=== PATIENT | male | born 1955 | race Caucasian/White ===

== ENCOUNTER → 2019-02-13 14:32 | Outpatient (CLI) | payer MEDICAID, SELFPAY ==
[2019-02-13 14:46] LABS: Basophils % 0.5 % (0.1-2.0); Eosinophils # 0.1 K/mm3 (0.0-0.4); Eosinophils % 1.9 % (0.1-12.0); Hematocrit 50.7 % (42.0-52.0); Lymphocytes # 1.2 K/mm3 (0.7-4.5); Lymphocytes % 16.4 % (10-50); Mean Corpuscular HGB Conc 31.5 g/dL (31.8-35.4); Mean Corpuscular Hemoglobin 29.7 pg (27.0-31.2); Mean Corpuscular Volume 94.2 fl (80-94); Mean Platelet Volume 10.2 fl (7.4-10.4); Monocytes # 0.4 K/mm3 (0.1-1.0); Monocytes % 5.8 % (1.7-9.3); Neutrophils # 5.3 K/mm3 (1.8-7.8); Neutrophils % 75.4 % (37.0-80.0); Platelet Count 174 K/mm3 (142-424); Red Blood Count 5.39 M/mm3 (4.60-6.20); Red Cell Distribution Width 13.3 % (11.5-17.5)
[2019-02-13 16:02] LABS: Alanine Aminotransferase 17 U/L (12-78); Albumin Level 3.7 gm/dL (3.4-5.0); Albumin/Globulin Ratio 1.2 (1.1-1.8); Alkaline Phosphatase 112 U/L (46-116); Anion Gap 14.7 mEq/L (5-15); Aspartate Amino Transferase 16 U/L (15-37); Bilirubin,Total 0.7 mg/dL (0.2-1.0); Blood Urea Nitrogen 15 mg/dL (7-18); Calcium 8.9 mg/dL (8.5-10.1); Carbon Dioxide 24 mmol/L (21.0-32.0); Chloride 106 mmol/L (98-107); Chol/HDL Ratio 4.1 (1-3.5); Cholesterol 157 mg/dL (140-200); Creatinine,Serum 1.34 mg/dL (0.70-1.30); Estimated Glomerular Filt Rate 54 ml/min (>60); GFR (African American) 65 ML/MIN (>60); Glucose 108 mg/dL (74-106); HDL Cholesterol 38 mg/dL (27-67); LDL Cholesterol 109 mg/dL (0-130); Potassium 3.7 mmoL/L (3.5-5.1); Sodium 141 mmol/L (136-145); T4 (Thyroxine) 6.6 ug/dl (4.7-13.3); Thyroid Stimulating Hormone 1.26 uIU/ml (0.358-3.740); Total Protein,Serum 6.7 gm/dL (6.4-8.2); Triglycerides 51 mg/dL (30-200); VLDL Cholesterol 10 mg/dL (0-40)
[2019-02-15 08:13] LABS: Vitamin D 25 Hydroxy 28.5 ng/mL (30.0-100.0)
== END ==
PROVIDERS: Visit Provider Physician Assistant
DX: I10 Essential (primary) hypertension (principal); E55.9 Vitamin D deficiency, unspecified
CPT/HCPCS: 80053; 80061; 82652; 84436; 84443; 85025

== ENCOUNTER → 2019-10-30 11:11 | Outpatient (CLI) | payer MEDICAID, SELFPAY ==
--- NOTE | 2019-10-30 11:31 | ECG_ITS ---
APPROVED REPORT Exam: Resting ECG HR:60 bpm ECG Measurements Heart Rate 60 AXES OH 230 P 49 QRSd 112 QRS 59 QT 484 T -41 QTc 484 <Conclusion> Sinus rhythm with 1st degree AV block Inferior infarct, age undetermined ST & T wave abnormality, consider lateral ischemia Abnormal ECG Electronically signed by : Mohit Mondragon, 11/04/2019 21:23:36
[2019-10-30 11:35] LABS: Basophils % 0.5 % (0.1-2.0); Eosinophils # 0.2 K/mm3 (0.0-0.4); Eosinophils % 2.7 % (0.1-12.0); Hematocrit 49.6 % (42.0-52.0); Hemoglobin 16.9 g/dL (14.1-18.0); Lymphocytes # 1.8 K/mm3 (0.7-4.5); Lymphocytes % 21.3 % (10-50); Mean Corpuscular HGB Conc 34.1 g/dL (31.8-35.4); Mean Corpuscular Hemoglobin 29.4 pg (27.0-31.2); Mean Corpuscular Volume 86.5 fl (80-94); Mean Platelet Volume 8.5 fl (7.4-10.4); Monocytes # 0.5 K/mm3 (0.1-1.0); Monocytes % 5.7 % (1.7-9.3); Neutrophils % 69.8 % (37.0-80.0); Platelet Count 191 K/mm3 (142-424); Red Blood Count 5.74 M/mm3 (4.60-6.20); Red Cell Distribution Width 13.4 % (11.5-17.5); White Blood Count 8.7 K/mm3 (4.8-10.8)
[2019-10-30 13:35] LABS: Coronavirus 19 IgG Antibody Negative (Negative); Coronavirus 19 IgM Antibody Negative (Negative)
== END ==
PROVIDERS: Visit Provider Otolaryngology
DX: L98.9 Disorder of the skin and subcutaneous tissue, unspecified (principal); D49.2 Neoplasm of unspecified behavior of bone, soft tissue, and skin; Z01.818 Encounter for other preprocedural examination
CPT/HCPCS: 36415; 85025; 86328; 93005

== ENCOUNTER 2019-11-01 08:30 | Day surgery (SDC) | payer MEDICAID, SELFPAY ==
[2019-11-01 09:00] VITALS: BP 200/117; PULSE 69; RESP 18; TEMP 36.6; O2SAT 97; BMI 29.6
--- NOTE | 2019-11-01 10:39 | P.PN_ITS ---
[facility] Anesthesia Checklist - Structural Data Admitted From: Home Planned Operative Procedure/s: excision neoplasm r face x 2 Consent for Planned Operative Procedure(s) Verified: Yes - Additional verifications Anesthesia Reactions: No Hx Blood Transfusions: No - Airway Assessment C-Spine Mobility Assessed: Yes TMJ Mobility Assessed: Yes Dentition: Poor Dentition - Neurological Assessment Level of Consciousness: Awake, Alert, Appropriate - Anesthesia Plan Anesthesia Risk discussed: Yes Anesthesia Plan: Verified ASA Class: III Anesthesia Type: MAC [facility] History I have reviewed the patient's past medical history: Yes Medical History: Reports:: Anxiety, Cancer, Chronic Obstructive Pulmonary Disease (COPD), Congenital Heart Disease, Coronary Artery Disease, Depression, Gastroesophageal Reflux Disease(GERD), Heart Murmur, Hyperlipidemia, Hypertension, Myocardial Infarction Denies:: Diabetes Mellitus Type 1, Diabetes Mellitus Type 2, Internal Pacemaker, MRSA, Seizures *Have you ever received a pneumonia vaccine?: No *Have you received a flu vaccine this season?: No Other Medical History: Reports: Arthritis Anesthesia experience/problems:: none Other Surgeries: Yes: Cardiac Catheterization, Cardiac Surgery, Colonoscopy, Coronary Stent, Skin Cancer Excision. No: Pacemaker Amputation: No Fractures: No - *Social History Last grade of school completed: GED Smoking Status: Current every day smoker Tobacco Type: cigarettes # Packs/Day (cigarettes): 1 Alcohol Intake: current Alcohol Intake Frequency:: a few times a month Substance Use Type: denies use *Occupational Status:: disabled *Travel in the last 8 weeks: None - Psychiatric History Pschychiatric History:: Reports:: Anxiety, Depression Family Hx:: Cancer, Heart Attack, Stroke
[2019-11-01 11:05] VITALS: BP 164/101; PULSE 56; RESP 18; TEMP 36.1; O2SAT 93
[2019-11-01 11:15] VITALS: BP 174/103; PULSE 63; RESP 18; O2SAT 95
[2019-11-01 11:25] VITALS: BP 165/101; PULSE 64; RESP 18; O2SAT 96
--- NOTE | 2019-11-01 12:57 | P.OP_ITS ---
Date of procedure: 11/01/19 Pre-op Diagnosis:: 1. Neoplasm lesion right baptist 4.5 cm 2. Lesion right allen 1.5 cm Post-op Diagnosis:: Same Procedure performed:: 1. Excision of neoplasm right baptist 4.5 cm with tissue rearrangement geometric plastic repair 2. Excision of neoplasm right chin 1.5 cm with simple repair Surgeon:: Johnathon Delarosa MD RESTAURANT MANAGER:: Francisco Holder Anesthesia: GETA Estimated blood loss (mL): 6 Operative findings:: Same Operative note:: With the patient under general anesthesia the right side of the face was prepped and draped. The perilesional areas were infiltrated with a total of 5 cc of 2% lidocaine containing epinephrine. The lesion on the right baptist measured 4.5 cm lesion was marked out and the marked out was incised and the lesion was excised completely. Anterior and posterior incisions were made and a tissue rearrangement Z-plasty repair was done with interrupted 4-0 nylon sutures a Dermabond dressing was applied and the lesion on the right chin was marked out it measured 1.5 cm it was excised and submitted bleeding was stopped with bipolar cautery blood loss for all the procedure was less than 10 cc a simple repair was done of the lesion on the right chin and a Dermabond dressing was applied. The patient tolerated the procedure well and was sent to recovery in good general condition. Condition: stable Disposition: PACU Complications:: None
== END 2019-11-01 11:31 | disposition home or self-care (01) ==
LOC: OR 08:32
PROVIDERS: PCP Physician Assistant; Visit Provider Otolaryngology
PROC: (CPT 14040; principal; 2019-11-01 09:00)
DX: C44.329 Squamous cell carcinoma of skin of other parts of face (principal); L82.1 Other seborrheic keratosis; F41.9 Anxiety disorder, unspecified; J44.9 Chronic obstructive pulmonary disease, unspecified; I25.10 Atherosclerotic heart disease of native coronary artery without angina pectoris; Q24.9 Congenital malformation of heart, unspecified; F32.9 Major depressive disorder, single episode, unspecified; K21.9 Gastro-esophageal reflux disease without esophagitis; E78.5 Hyperlipidemia, unspecified; I11.9 Hypertensive heart disease without heart failure; I25.2 Old myocardial infarction; M19.90 Unspecified osteoarthritis, unspecified site
CPT/HCPCS: 14040; 11442; 96374; 96375

== ENCOUNTER 2019-11-02 07:25 | Day surgery (SDC) | payer MEDICAID, SELFPAY ==
[2019-11-01 11:40] VITALS: BMI 29.6
[2019-11-02 07:55] VITALS: BP 199/94; PULSE 71; RESP 18; TEMP 37.3; O2SAT 94
[2019-11-02 09:49] VITALS: BP 178/98; PULSE 71; RESP 18; TEMP 36.6; O2SAT 92
--- NOTE | 2019-11-02 09:49 | HMH.OPNOTE ---
Date of procedure: 11/02/19 Pre-op Diagnosis:: Skin neoplasm of uncertain behavior (right upper back)?1.75 cm Post-op Diagnosis:: Same Procedure performed:: Excision of right upper back skin lesion Surgeon:: Arnol Manuel MD Anesthesia: local Estimated blood loss (mL): 10 Operative findings:: Skin lesion excised in toto. 5 mm margin obtained secondary to patient's history of basal cell carcinoma and his desire to potentially avoid an additional operation. Operative note:: After informed consent was obtained the patient was taken to the procedure room. He is right upper back was prepped and draped in a sterile fashion. After infiltration local anesthetic an elliptical incision was made around the lesion. The deep subcutaneous tissue was dissected with electrocautery. The lesion was excised in toto after margins were marked for pathologic evaluation. The superior margin was marked with a short suture and the lateral margin was marked with a long suture. Electrocautery was utilized to achieve hemostasis. Skin was reapproximated with interrupted 3-0 nylon. Dressings were applied and the patient was transferred to recovery in stable condition. Condition: stable Disposition: no change Specimens:: Right upper back skin lesion Complications:: No immediate
[2019-11-02 10:00] VITALS: BP 170/98; PULSE 71; RESP 18; TEMP 36.6; O2SAT 92
--- NOTE | 2019-11-02 11:04 | SUR.OPER ---
4 SUTURES 5 LAPS 1 BOVIE TIP 1 HYPO 1 BLADE Counted x2 per Marina
--- NOTE | 2019-11-02 11:07 | SUR.OPER ---
FLUFFS & TEGADERM PLACED OVER INCISION FOR DRESSING Specimen:Skin Lesion Right upper back
== END 2019-11-02 10:00 | disposition home or self-care (01) ==
LOC: OUTP 07:27
PROVIDERS: PCP Physician Assistant; Visit Provider Surgery
PROC: (CPT 11402; principal; 2019-11-02 08:45)
DX: D04.5 Carcinoma in situ of skin of trunk (principal); Z85.828 Personal history of other malignant neoplasm of skin; Z79.82 Long term (current) use of aspirin; Z79.899 Other long term (current) drug therapy; J44.9 Chronic obstructive pulmonary disease, unspecified; F41.9 Anxiety disorder, unspecified; I11.9 Hypertensive heart disease without heart failure; Q24.9 Congenital malformation of heart, unspecified; I25.10 Atherosclerotic heart disease of native coronary artery without angina pectoris; K21.9 Gastro-esophageal reflux disease without esophagitis; E78.5 Hyperlipidemia, unspecified; I25.2 Old myocardial infarction
CPT/HCPCS: 11402

== ENCOUNTER → 2022-08-25 18:51 | Outpatient (CLI) | payer MEDICARE, MEDICAID, SELFPAY ==
[2022-08-25 19:32] LABS: Basophils % 0.4 % (0.1-2.0); Eosinophils # 0.2 K/mm3 (0.0-0.4); Eosinophils % 2.5 % (0.1-12.0); Hematocrit 45.7 % (42.0-52.0); Hemoglobin 14.9 g/dL (14.1-18.0); Lymphocytes # 1.8 K/mm3 (0.7-4.5); Lymphocytes % 21.4 % (10-50); Mean Corpuscular HGB Conc 32.5 g/dL (31.8-35.4); Mean Corpuscular Hemoglobin 27.7 pg (27.0-31.2); Mean Corpuscular Volume 85.1 fl (80-94); Mean Platelet Volume 10.1 fl (7.4-10.4); Monocytes # 0.5 K/mm3 (0.1-1.0); Monocytes % 5.5 % (1.7-9.3); Neutrophils % 70.2 % (37.0-80.0); Platelet Count 197 K/mm3 (142-424); Red Blood Count 5.37 M/mm3 (4.60-6.20); Red Cell Distribution Width 14.1 % (11.5-17.5); White Blood Count 8.5 K/mm3 (4.8-10.8)
[2022-08-25 19:40] LABS: Alanine Aminotransferase 23 U/L (12-78); Albumin Level 4.2 g/dl (3.5-5.0); Albumin/Globulin Ratio 1.7 (1.1-1.8); Alkaline Phosphatase 147 U/L (38-126); Anion Gap 15.6 mEq/L (5-15); Aspartate Amino Transferase 30 U/L (17-59); Bilirubin,Total 0.6 mg/dl (0.2-1.3); Blood Urea Nitrogen 14 mg/dl (9-20); Calcium 9.2 mg/dl (8.4-10.2); Carbon Dioxide 26 mmol/L (22.0-30.0); Chloride 103 mmol/L (98-107); Chol/HDL Ratio 3.4 (1-3.5); Cholesterol 117 mg/dl (140-200); Estimated Glomerular Filt Rate 61 ml/min (>60); GFR (African American) 74 ML/MIN (>60); Globulin 2.5 g/dL (1.3-3.2); Glucose 130 mg/dl (74-100); HDL Cholesterol 34 mg/dl (40-60); Potassium 4.6 mmoL/L (3.5-5.1); Sodium 140 mmol/L (136-145); Total Protein,Serum 6.7 g/dl (6.3-8.2); Triglycerides 152 mg/dl (30-150); VLDL Cholesterol 30 mg/dL (0-40)
[2022-08-25 19:51] LABS: Direct LDL Cholesterol 70.85 mg/dL (100-129)
[2022-08-25 19:58] LABS: 25-OH Vitamin D, Total 53.3 ng/mL (30-100)
[2022-08-25 20:13] LABS: Prostate Specific Ag Screen 1.1 ng/ml (0.0-4.0); Thyroid Stimulating Hormone 1.04 uIU/mL (0.465-4.68)
[2022-08-26 11:06] LABS: Intact Parathyroid Hormone 58.5 pg/mL (7.5-53.5)
[2022-08-26 11:09] LABS: Hemoglobin A1C 6.2 % (4.0-6.0)
== END ==
PROVIDERS: PCP Physician Assistant; Visit Provider Physician Assistant
DX: E11.9 Type 2 diabetes mellitus without complications (principal); Z12.5 Encounter for screening for malignant neoplasm of prostate; E55.9 Vitamin D deficiency, unspecified
CPT/HCPCS: 80053; 80061; 82306; 83036; 83970; 84443; 85025; G0103

== ENCOUNTER 2022-10-04 14:55 | Inpatient (IN) | payer MEDICARE, MEDICAID, SELFPAY ==
[2022-10-04] VITALS (7 sets, daily range): BP systolic 147–222; BP diastolic 67–113; PULSE 70–80; RESP 20–22; TEMP 36.1–36.8; O2SAT 93–95; BMI 30.5
--- NOTE | 2022-10-04 15:01 | PC.NURSE ---
arrived to floor from ED admissions by ambulance
--- NOTE | 2022-10-04 15:20 | EXP.HP ---
History of Present Illness *Admission Date: 10/04/22 *Reason for visit:: Prolonged QT, transfer from [facility] *History of present illness: Mr. Anderson is a 67-year-old gentleman with history of CAD, COPD, hyper tension, vasculopathy, with history of TIAs. Admitted to [facility] on 09/30 with pneumonia and respiratory failure. Ended up intubated and on a ventilator. Was extubated yesterday. Currently on 2 L oxygen. Reported to have improving DENY. Request was made for transfer due to abnormalities on EKG concerning for anterolateral ischemia. Troponin 6 on their high-sensitivity troponin. Patient has no chest pain at this time. He also has a prolonged QT on EKG. Cardiology was contacted for transfer and further work-up. Patient excepted for further management. On arrival, he is stable on 2 L nasal cannula oxygen. States he is feeling well. Noted to have severely elevated blood pressure with systolics in the 180s. After much discussion, states that his neurologist told him to keep his blood pressure systolic above 160 due to cerebral artery stenosis per his report. He appears to be describing vertebral artery stenosis. He is currently on carvedilol, losartan, Imdur and still has hypertensive urgency. Reports history of a left heart cath in 2017 with stenting of his LAD. No other heart attacks per his report. Additional report of echo performed at [place] showing grade 1 diastolic dysfunction and LVH with normal EF(?) Currently on Zosyn for pneumonia. Sees neurology at [facility] Disclaimer: The information contained in this section may have been updated after the patient was seen, as this information can be updated by other users. Medical History Anxiety CAD (coronary artery disease) Hypertension Neuropathy Skin lesion of left arm TIA (transient ischemic attack) Vertebral artery stenosis with cerebral infarction within last 8 weeks Family History Family history of cancer Family history of myocardial infarction Social History Smoking Status: Current every day smoker tobacco type: cigarettes packs per day: 1 alcohol intake: current substance use type: marijuana current occupational status: unemployed Travel in the last 8 weeks: None caffeine: Yes Meds Home Medications and Allergies Home Medications Medication Instructions Recorded Confirmed Type albuterol sulfate 90 mcg/actuation 2 puff inhalation Q6H Asthma 10/04/22 10/04/22 History aerosol inhaler (Ventolin HFA) apixaban 5 mg tablet (Eliquis) 5 mg PO BID Blood Thinner 10/04/22 10/04/22 History atorvastatin 80 mg tablet 80 mg PO DAILY Cholesterol 10/04/22 10/04/22 History carvedilol 12.5 mg tablet 12.5 mg PO BID High Blood Pressure 10/04/22 10/04/22 History clopidogrel 75 mg tablet 75 mg PO DAILY Blood Thinner 10/04/22 10/04/22 History ergocalciferol (vitamin D2) 1,250 50,000 unit PO WEEKLY Supplement 10/04/22 10/04/22 History mcg (50,000 unit) capsule losartan 50 mg tablet 50 mg PO DAILY High Blood Pressure 10/04/22 10/04/22 History nitroglycerin 0.4 mg sublingual 0.4 mg sublingual Q5MINP PRN Chest 10/04/22 10/04/22 History tablet Pain omeprazole 20 mg capsule,delayed 20 mg PO DAILY Acid Reflux 10/04/22 10/04/22 History release New Prescriptions to Start Prescriptions: Allergies Allergy/AdvReac Type Severity Reaction Status Date / Time No Known Allergies Allergy Verified 08/25/22 13:16 Exam Data for Last 24 hours Vital signs and Labs for Last 24 Hours: Temp Pulse Resp BP Pulse Ox 98.3 F 74 22 189/113 H 95 10/04/22 15:11 10/04/22 15:11 10/04/22 15:11 10/04/22 15:11 10/04/22 15:11 I & O for Last 24 hours: Intake & Output 10/01/22 10/02/22 10/03/22 10/04/22 23:59 23:59 23:59 23:59 Weight 110.847 kg
[2022-10-04 15:21] LABS: Coronavirus 19, PCR Not Detected (NotDetected); Influenza A, PCR Not Detected (NotDetected); Influenza B, PCR Not Detected (NotDetected)
--- NOTE | 2022-10-04 15:59 | ECG_ITS ---
APPROVED REPORT Exam: Resting ECG HR:72 bpm ECG Measurements Heart Rate 72 AXES NE 197 P 58 QRSd 125 QRS 56 QT 462 T 150 QTc 486 Conclusion SINUS RHYTHM MODERATE T-WAVE ABNORMALITY, CONSIDER ANTEROLATERAL ISCHEMIA [-0.1+ mV T-WAVE IN V3-V6] ABNORMAL ECG UNCONFIRMED REPORT Electronically signed by : Mohit Mondragon MD 10/04/2022 19:31:07
--- NOTE | 2022-10-04 15:59 | HMH.PHAINT1 ---
Pharmacy Intervention Comments: MEDICATION RECONCILIATION COMPLETE USING LIST FROM MD OFFICE VISIT (08/2022) AND EXTERNAL PHARMACY FILL HISTORY.
[2022-10-04 16:27] LABS: POC Glucose,Bedside 195 (70-110)
[2022-10-04 16:32] LABS: Basophils % 0.1 % (0.1-2.0); Eosinophils % 0.3 % (0.1-12.0); Hematocrit 37.3 % (42.0-52.0); Hemoglobin 11.6 g/dL (14.1-18.0); Lymphocytes # 0.5 K/mm3 (0.7-4.5); Lymphocytes % 6.6 % (10-50); Mean Corpuscular HGB Conc 31.1 g/dL (31.8-35.4); Mean Corpuscular Hemoglobin 25.9 pg (27.0-31.2); Mean Corpuscular Volume 83.4 fl (80-94); Mean Platelet Volume 9.7 fl (7.4-10.4); Monocytes # 0.3 K/mm3 (0.1-1.0); Monocytes % 3.4 % (1.7-9.3); Neutrophils # 7.3 K/mm3 (1.8-7.8); Neutrophils % 89.7 % (37.0-80.0); Platelet Count 160 K/mm3 (142-424); Red Blood Count 4.47 M/mm3 (4.60-6.20); Red Cell Distribution Width 14.2 % (11.5-17.5); White Blood Count 8.2 K/mm3 (4.8-10.8)
[2022-10-04 16:33] LABS: MANUAL DIFFERENTIAL MANUAL DIFFERENTIAL (MANUAL DIFF)
[2022-10-04 16:39] LABS: Alanine Aminotransferase 29 U/L (12-78); Albumin Level 3.2 g/dl (3.5-5.0); Albumin/Globulin Ratio 1.1 (1.1-1.8); Alkaline Phosphatase 86 U/L (38-126); Anion Gap 13.1 mEq/L (5-15); Aspartate Amino Transferase 46 U/L (17-59); Bilirubin,Total 0.6 mg/dl (0.2-1.3); Blood Urea Nitrogen 50 mg/dl (9-20); Calcium 8.6 mg/dl (8.4-10.2); Carbon Dioxide 25 mmol/L (22.0-30.0); Chloride 110 mmol/L (98-107); Creatinine Clearance Estimated 48 mL/min (50-200); Estimated Glomerular Filt Rate 27 ml/min (>60); GFR (African American) 33 ML/MIN (>60); Globulin 2.8 g/dL (1.3-3.2); Glucose 204 mg/dl (74-100); Hemoglobin A1C 6.5 % (4.0-6.0); Magnesium 2.4 mg/dl (1.6-2.3); Potassium 4.1 mmoL/L (3.5-5.1); Sodium 144 mmol/L (136-145)
--- NOTE | 2022-10-04 16:43 | HMH.PTEV ---
Physical Therapy Evaluation Rehab PT IP Evaluation Start: 10/04/22 15:18 Freq: ONCE Status: Active Protocol: Document 10/04/22 16:35 RICKY (Rec: 10/04/22 16:42 [id number]) Subjective/History History History Pt is a 67 y/o male who reports he qwas admitted to [facility] for heart problems and pneumonia. Pt reports he was intubated for 3 days due to the pneumonia but is feeling better now. Pt is currently on 2L NC without SOA. Pt reports the doctor mentioned having a heart cath. Pt reports history of stroke affecting the L side and a heart attack. Subjective Subjective Pt reports he lives in a single-story home with his with 3 steps with HR to enter. Pt reports prior to hospitalization, he was independent with all ambulation and ADLs and is pretty active. Pt reports he has a cane and a walker at home but does not use them. Pt denies using oxygen at home. Pt denies pain or SOA. Rehab PT IP Eval Objective Appearance Patient Behavior Appropriate,Cooperative Patient Orientation Person,Place,Name,Birthday, Situation Difficulty following instructions none Speech Pattern Clear,Appropriate Ambulation Patient Able to Ambulate Yes Ambulation Observation IP General Gait Pattern Observation Wide Based Gait Ambulation Distance (feet) 20 Ambulation Assistive Device None Ambulation Ability Supervision/Stand by Balance Ability to Arise Able, uses arms to help Sitting Balance Steady, safe Standing Balance Steady, wide stance Dynamic Sitting Balance Ability Good Dynamic Standing Balance Ability Good Transfers Bed Transfer Ability Supervision/Stand by Sit to Stand Bed Transfer Ability Supervision/Stand by MMT All Extremities PT MMT WNL Rehab PT IP prob,goals,plan Problems Date of Evaluation: 10/04/22 Rehab Potential Rehab Potential Innapropriate for Skilled Therapy Discharge Plan PT Discharge Plan Pt seems to be at current baseline sta
[2022-10-04 16:47] LABS: NT Pro Brain Natriuretic Pep. 4320 pg/mL (0-125)
--- NOTE | 2022-10-04 16:49 | HMH.OTEV ---
OT Inpatient Evaluation Rehab OT IP Evaluation Start: 10/04/22 15:18 Freq: ONCE Status: Active Protocol: Document 10/04/22 16:37 SOULEYMANEJUSTYN (Rec: 10/04/22 16:49 [id number]) Rehab OT IP Assessment Subjective History 67 year old male admitted to [facility] with PMH: Anxiety CAD (coronary artery disease) Hypertension Neuropathy Skin lesion of left arm TIA (transient ischemic attack ) Vertebral artery stenosis with cerebral infarction within last 8 weeks. Patient lives with in 1 story home with 1-2 ANITA. No steps inside of house. Independent with ADLs and fx'l mobility prior to hospitalization. No usage of AE/devices to ambulate/ maneuver. Subjective I can get up. Analysis Patient's functional mobility and transfers I. Patient demonstrated good dynamic balance while sitting and standing with no LOB noted . Patient able to d/d LB drsg of socks independently. Objective Patient Orientation Person,Name,Age,Year Bed Mobility bed mobility - supine/sit Assist Level Independent Transfer Training Sit/Stand Transfer,Sit/Stand/ Step Transfer,Sit/Stand/Pivot Transfer Assist Level Independent Chair Transfer Ability Independent Chair Transfer Technique Sit to/from Ambulatory Chair Transfer Assistive Devices None Lower Body Dressing Ability Independent Rehab OT IP prob,goals,plan Problems Date of Evaluation: 10/04/22 Rehab Potential Rehab Potential Innapropriate for Skilled Therapy Discharge Plan OT Discharge Plan Patient appears to be at baseline. Patient to return home with after medical d /c. Eval Complexity Eval Charge Codes 78836 - Low Complexity G Codes G -code Required No
[2022-10-04 16:51] LABS: Troponin I 0.02 ng/ml (0.00-0.034)
[2022-10-04 16:59] LABS: Hypochromasia 2+; Lymphocytes % 11 % (10-50); Monocytes % 1 % (2-9); Neutrophils % 88 % (42-76); Platelet Estimate Normal; Total Cells Counted 100
[2022-10-04 17:32] LABS: Thyroid Stimulating Hormone 1.21 uIU/mL (0.465-4.68)
[2022-10-04 19:42] LABS: Troponin I 0.02 ng/ml (0.00-0.034)
--- NOTE | 2022-10-04 20:33 | PC.NURSE ---
Per Kulwant corcoran to give Eliquis 5mg tonight
[2022-10-04 23:35] LABS: POC Glucose,Bedside 281 (70-110)
[2022-10-05] VITALS (10 sets, daily range): BP systolic 128–181; BP diastolic 67–89; PULSE 60–90; RESP 16–18; TEMP 36.4–36.6; O2SAT 95–97; BMI 29.8
--- NOTE | 2022-10-05 05:22 | PC.NURSE ---
Patient has rested though the night. Patient still on 2L NC. Has not complained of being SOB. No issues noted by patient
[2022-10-05 06:45] LABS: POC Glucose,Bedside 221 (70-110)
--- NOTE | 2022-10-05 07:29 | ECG_ITS ---
APPROVED REPORT Exam: Resting ECG HR:65 bpm ECG Measurements Heart Rate 65 AXES FL 200 P 46 QRSd 130 QRS 40 QT 470 T 168 QTc 481 Conclusion SINUS RHYTHM INFERIOR MYOCARDIAL INFARCTION , PROBABLY OLD [40+ ms Q WAVE AND/OR ST/T ABNORMALITY IN II/aVF] MODERATE T-WAVE ABNORMALITY, CONSIDER ANTEROLATERAL ISCHEMIA [-0.1+ mV T-WAVE IN V3-V6] ABNORMAL ECG UNCONFIRMED REPORT Electronically signed by : Mohit Mondragon MD 10/05/2022 20:27:34
[2022-10-05 08:03] LABS: Basophils % 0.1 % (0.1-2.0); Eosinophils # 0.1 K/mm3 (0.0-0.4); Eosinophils % 0.9 % (0.1-12.0); Hematocrit 35.7 % (42.0-52.0); Hemoglobin 11.1 g/dL (14.1-18.0); Lymphocytes # 1.2 K/mm3 (0.7-4.5); Lymphocytes % 15.3 % (10-50); Mean Corpuscular HGB Conc 31.1 g/dL (31.8-35.4); Mean Corpuscular Hemoglobin 25.8 pg (27.0-31.2); Mean Corpuscular Volume 83.1 fl (80-94); Mean Platelet Volume 9.5 fl (7.4-10.4); Monocytes # 0.7 K/mm3 (0.1-1.0); Monocytes % 9.2 % (1.7-9.3); Neutrophils # 5.6 K/mm3 (1.8-7.8); Neutrophils % 74.5 % (37.0-80.0); Platelet Count 171 K/mm3 (142-424); White Blood Count 7.5 K/mm3 (4.8-10.8)
[2022-10-05 08:04] LABS: Chloride 110 mmol/L (98-107); Potassium 3.4 mmoL/L (3.5-5.1); Sodium 144 mmol/L (136-145)
[2022-10-05 08:07] LABS: Alanine Aminotransferase 31 U/L (12-78); Albumin Level 3.1 g/dl (3.5-5.0); Albumin/Globulin Ratio 1.1 (1.1-1.8); Alkaline Phosphatase 68 U/L (38-126); Anion Gap 10.4 mEq/L (5-15); Aspartate Amino Transferase 40 U/L (17-59); Bilirubin,Total 0.2 mg/dl (0.2-1.3); Blood Urea Nitrogen 42 mg/dl (9-20); Calcium 8.7 mg/dl (8.4-10.2); Carbon Dioxide 27 mmol/L (22.0-30.0); Cholesterol 115 mg/dl (140-200); Creatinine Clearance Estimated 52 mL/min (50-200); Estimated Glomerular Filt Rate 30 ml/min (>60); GFR (African American) 37 ML/MIN (>60); Globulin 2.7 g/dL (1.3-3.2); Glucose 161 mg/dl (74-100); Total Protein,Serum 5.8 g/dl (6.3-8.2); Triglycerides 125 mg/dl (30-150); VLDL Cholesterol 25 mg/dL (0-40)
[2022-10-05 08:08] LABS: Chol/HDL Ratio 4.6 (1-3.5); HDL Cholesterol 25 mg/dl (40-60); Magnesium 2.3 mg/dl (1.6-2.3)
[2022-10-05 08:18] LABS: Direct LDL Cholesterol 62.83 mg/dL (100-129)
--- NOTE | 2022-10-05 09:48 | ECG_ITS ---
APPROVED REPORT Exam: Resting ECG HR:63 bpm ECG Measurements Heart Rate 63 AXES NJ 206 P 47 QRSd 124 QRS 38 QT 488 T 177 QTc 495 Conclusion SINUS RHYTHM INFERIOR MYOCARDIAL INFARCTION , PROBABLY OLD [40+ ms Q WAVE AND/OR ST/T ABNORMALITY IN II/aVF] MARKED T-WAVE ABNORMALITY, CONSIDER ANTEROLATERAL ISCHEMIA [-0.5+ mV T-WAVE IN I/aVL/V3-V6] ABNORMAL ECG UNCONFIRMED REPORT Electronically signed by : Mohit Mondragon MD 10/05/2022 20:27:26
--- NOTE | 2022-10-05 11:15 | EXP.ACUTE.PN ---
Subjective *Date: 10/05/22 *Time: 11:15 Interval history: Patient is chest pain-free this morning. Blood pressure with improved control after morning medications. Elevated to systolic 180 overnight. Denies any nausea or vomiting. Improved shortness of breath. Afebrile. Medical Exam Vital signs and Labs for Last 24 Hours: Vital Signs Temp Pulse Pulse Resp BP BP BP 10/05/22 09:43 128/67 10/05/22 08:00 18 10/05/22 07:16 97.5 F L 62 18 181/89 H 10/05/22 04:00 70 10/05/22 04:00 97.9 F 70 18 146/71 H 10/05/22 00:00 90 10/04/22 23:53 98.0 F 71 20 147/67 H 10/04/22 20:00 80 10/04/22 19:36 97 F L 74 20 189/84 H 10/04/22 16:00 70 10/04/22 15:06 80 10/04/22 17:32 188/86 H 222/97 H 186/85 H 10/04/22 15:11 98.3 F 74 22 189/113 H BP Pulse Ox 10/05/22 09:43 95 10/05/22 08:00 97 10/05/22 07:16 97 10/05/22 04:00 10/05/22 04:00 97 10/05/22 00:00 10/04/22 23:53 93 L 10/04/22 20:00 10/04/22 19:36 10/04/22 16:00 10/04/22 15:06 10/04/22 17:32 211/87 H 10/04/22 15:11 95 Intake and Output 10/04/22 10/05/22 10/05/22 23:59 07:59 15:59 Intake Total 360 / 360 0 / 0 Output Total 600 / 600 800 / 1550 750 / 1550 Balance -240 / -240 -800 / -1550 -750 / -1550 Intake: Intake, Oral Amount 360 / 360 0 / 0 Output: Output, Urine Amount 600 / 600 800 / 1550 750 / 1550 Other: Number of Voids 1 Number of Unmeasured Voids 0 1 1 Weight 108.862 kg Patient Weight 10/05/22 23:59 Weight 108.862 kg Laboratory Results - last 24 hr 10/04/22 15:15: SARS-CoV-2 (PCR) Not detected, Influenza A Untype (PCR) Not detected, Influenza Type B (PCR) Not detected 10/04/22 16:15: WBC 8.2, RBC 4.47 L, Hgb 11.6 L, Hct 37.3 L, MCV 83.4, MCH 25.9 L, MCHC 31.1 L, RDW 14.2, Plt Count 160, MPV 9.7, Neut % (Auto) 89.7 H, Lymph % (Auto) 6.6 L, Gibson % (Auto) 3.4, Eos % (Auto) 0.3, Baso % (Auto) 0.1, Neut # (Auto) 7.3, Lymph # (Auto) 0.5 L, Gibson # (Auto) 0.3, Eos # (Auto) 0.0, Baso # (Auto) 0.0, Total Counted 100, Neutrophils % (Manual) 88 H, Lymphocytes % (Manual) 11, Monocytes % (Manual) 1 L, Platelet Estimate Normal, Hypochromasia 2+, Sodium 144, Potassium 4.1, Chloride 110 H, Carbon Dioxide 25, Anion Gap 13.1, BUN 50 H, Creatinine 2.40 H, Estimated Creat Clear 48, Estimated GFR 27 L, Est GFR ( Amer) 33 L, Glucose 204 H, Hemoglobin A1c 6.5 H, Calcium 8.6, Magnesium 2.4 H, Total Bilirubin 0.6, AST 46, ALT 29, Alkaline Phosphatase 86, Troponin I 0.02, NT-Pro-B Natriuret Pep 4320 H, Total Protein 6.0 L, Albumin 3.2 L, Globulin 2.8, Albumin/Globulin Ratio 1.1, TSH 1.21 10/04/22 16:19: POC Glucose 195 H 10/04/22 19:15: Troponin I 0.02 10/04/22 20:06: POC Glucose 281 H 10/05/22 05:27: POC Glucose 221 H 10/05/22 07:04: WBC 7.5, RBC 4.30 L, Hgb 11.1 L, Hct 35.7 L, MCV 83.1, MCH 25.8 L, MCHC 31.1 L, RDW 14.0, Plt Count 171, MPV 9.5, Neut % (Auto) 74.5, Lymph % (Auto) 15.3, Gibson % (Auto) 9.2, Eos % (Auto) 0.9, Baso % (Auto) 0.1, Neut # (Auto) 5.6, Lymph # (Auto) 1.2, Gibson # (Auto) 0.7, Eos # (Auto) 0.1, Baso # (Auto) 0.0, Sodium 144, Potassium 3.4 L, Chloride 110 H, Carbon Dioxide 27, Anion Gap 10.4, BUN 42 H, Creatinine 2.20 H, Estimated Creat Clear 52, Estimated GFR 30 L, Est GFR ( Amer) 37 L, Glucose 161 H D, Calcium 8.7, Magnesium 2.3, Total Bilirubin 0.2, AST 40, ALT 31, Alkaline Phosphatase 68, Total Protein 5.8 L, Albumin 3.1 L, Globulin 2.7, Albumin/Globulin Ratio 1.1, Triglycerides 125, Cholesterol 115 L, LDL Cholesterol Direct 62.83 L, VLDL Cholesterol 25, HDL Cholesterol 25 L, Cholesterol/HDL Ratio 4.6 H I & O for Labs for Last 24 Hours: Intake & Output 10/02/22 10/03/22 10/04/22 10/05/22 23:59 23:59 23:59 23:59 Intake Total 360 / 360 0 / 0 Output Total 600 / 600 1550 / 1550 Balance -240 / -240 -1550 / -1550 Weight 110.847 kg 108.862 kg Constitutional: Present no acute distress, ave
[2022-10-05 11:17] LABS: POC Glucose,Bedside 207 (70-110)
[2022-10-05 16:40] LABS: POC Glucose,Bedside 162 (70-110)
--- NOTE | 2022-10-05 16:42 | PC.NURSE ---
pt alert and oriented. ls diminished t/o. pt was initially on 2LNC at beginning of shift and has been weaned to RA. pt has incentive spirometer at bedside and instructed to use. abdomen soft, nontender, bs active. pt had his significant other bring in lunch and pt ate well. pt has been requiring sliding scale insulin coverage. at this time pt's plan is for a heart cath tomorrow and pt is aware and in agreeance. pt did ambulate in the room and sat up in the chair for extended period of time. call light w/i reach. pt has asked that he be able to rest tonight and Dr. Grijalva stated to pass on in report for minimal disturbance along with cluster care this evening.
[2022-10-05 20:33] LABS: POC Glucose,Bedside 179 (70-110)
[2022-10-06] VITALS (30 sets, daily range): BP systolic 109–187; BP diastolic 66–119; PULSE 57–78; RESP 12–25; TEMP 36.5–36.9; O2SAT 91–99; BMI 29.8
--- NOTE | 2022-10-06 05:24 | PC.NURSE ---
Per Dr. Grijalva communication note, patient has been able to rest from 10pm-6am. Patient did take a shower, and no issues were stated by patient or family member at bedside.
[2022-10-06 06:23] LABS: Eosinophils # 0.3 K/mm3 (0.0-0.4); Mean Corpuscular Hemoglobin 26.2 pg (27.0-31.2); Monocytes # 0.6 K/mm3 (0.1-1.0); Neutrophils # 5.8 K/mm3 (1.8-7.8)
[2022-10-06 06:33] LABS: Anion Gap 12.7 mEq/L (5-15); Basophils % 0.4 % (0.1-2.0); Blood Urea Nitrogen 34 mg/dl (9-20); Calcium 8.8 mg/dl (8.4-10.2); Carbon Dioxide 26 mmol/L (22.0-30.0); Chloride 108 mmol/L (98-107); Creatinine Clearance Estimated 57 mL/min (50-200); Eosinophils % 4.1 % (0.1-12.0); Estimated Glomerular Filt Rate 34 ml/min (>60); GFR (African American) 41 ML/MIN (>60); Glucose 132 mg/dl (74-100); Hematocrit 41.2 % (42.0-52.0); Lymphocytes # 1.1 K/mm3 (0.7-4.5); Lymphocytes % 14.3 % (10-50); Magnesium 2.1 mg/dl (1.6-2.3); Mean Platelet Volume 9.1 fl (7.4-10.4); Neutrophils % 73.2 % (37.0-80.0); Platelet Count 203 K/mm3 (142-424); Potassium 3.7 mmoL/L (3.5-5.1); Red Blood Count 5.02 M/mm3 (4.60-6.20); Sodium 143 mmol/L (136-145); White Blood Count 7.9 K/mm3 (4.8-10.8)
[2022-10-06 06:34] LABS: Hemoglobin 13.2 g/dL (14.1-18.0)
[2022-10-06 06:43] LABS: POC Glucose,Bedside 128 (70-110)
--- NOTE | 2022-10-06 07:57 | IR_ITS ---
APPROVED REPORT Patient Location: Inpatient Underwriting Operations Manager: LETTY Lea RT (R) PROCEDURES Left heart catheterization Left ventriculogram Selective coronary angiogram Bilateral selective renal angiography INDICATION Acute coronary syndrome, Malignant hypertension, Chronic renal failure, Renovascular hypertension, Renal artery stenosis, Abnormal echocardiogram with regional wall motion abnormality Informed consent was obtained prior to the procedure. COMPLICATIONS None Estimated Blood Loss: Less than 10 mls TECHNIQUE One percent lidocaine used to anesthetize the right anterior aspect of the wrist. The right radial artery was accessed via the Seldinger technique. A 6 Togolese sheath was placed in the right radial artery. 150 mg magnesium sulfate, 800 mcg of nitroglycerin, 1mg Lidocaine and 5000 U Heparin were given through the arterial sheath. The papa catheter was also used to perform left heart catheterization, left ventriculogram and selective coronary angiogram. The 100 cm JR4 guide catheter was used to perform bilateral selective renal angiography. At the end of the procedure therapeutic heparin was administered and a Choice PT extra-support wire was placed in the right renal artery however Herculink stent could not be delivered therefore the apparatus was removed and the procedure was aborted. The sheath was removed from the radial artery good hemostasis was achieved using TR banding patient was transferred to the postop putting in stable condition ANGIOGRAPHIC RESULTS The left main artery Has a distal tubular 70% stenosis The left anterior descending artery Has proximal 10% luminal irregularities with a mid vessel eccentric 50% stenosis The circumflex artery Gives rise to a large ramus intermedius which has a stent in the proximal segment which has 30% in-stent restenosis. The circumflex artery itself has a proximal eccentric 30% stenosis followed by a proximal to mid vessel stent which has mild diffuse in-stent restenosis nothing greater than 30% The right coronary artery Is a codominant vessel and has a proximal 60 to 70% stenosis The CRUZ ventriculogram reveals Dilated ventricle with poor assessment of ejection fraction with LV gram The left ventricular end-diastolic pressure 20 mmHg Right renal artery is singular and has an ostial hazy 70 to 80% stenosis Left renal artery singular and has an ostial proximal 70% stenosis IMPRESSION Severe distal left main coronary artery disease as described above with severe stenosis in the proximal codominant right coronary Elevated LVEDP Severe bilateral renal artery stenosis 8 mm renal artery mass suggestive of renal cell carcinoma PLAN 1. IV fluids overnight 2. Continue night pride drip 3. Hold Eliquis 4. Patient will be brought back to the [employer] [facility] tomorrow on my undergo right femoral arterial access with plans to stent each renal artery 5. Once the bilateral renal arteries are stented patient will be referred to CT surgery [facility] on an outpatient basis. Patient will require bypass surgery 3 to 4 weeks after bilateral renal artery stents were placed 6. LDL less than 55 to be achieved with high intensity statin 7. The renal mass can be further evaluated following renal artery stenting and coronary bypass grafting Electronically signed by : Bola Rodriguez MD 10/06/2022 16:01:50
--- NOTE | 2022-10-06 09:02 | US_ITS ---
FINAL REPORT CLINICAL HISTORY: malignant htn COMPARISON: None FINDINGS: RENAL ULTRASOUND Ultrasound images of the kidneys were obtained. Limited images of the liver parenchyma demonstrates normal echogenicity. The right kidney measures 12.2 cm in length. The left kidney measures 14.1 cm in length. 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 There is a 2.1 cm left renal cyst. No evidence of hydronephrosis. IMPRESSION: 8 mm mass upper pole right kidney. If indicated, renal mass protocol CT or MRI may be helpful. 2.1 cm left renal cyst. Reviewed, Interpreted and Dictated by Cuong Farris III, MD Transcribed by Marcia Mathias Authenticated and [facility]
--- NOTE | 2022-10-06 09:24 | EXP.CARD.CON ---
History of Present Illness History of Present Illness Consult date: 10/06/22 Requesting physician: Jeffeyr Grijalva Chief complaint: abnormal EKG, aspiration History of present illness: This is a 67-year-old white gentleman who was transferred here to [facility] from [facility] due to an elevated high-sensitivity troponin and abnormal EKG changes. The patient was admitted to [facility] on 09/30/2022 with pneumonia and respiratory failure. The patient states that he was drinking when he aspirated and had a syncopal episode and was transported to the hospital at [facility]. The patient reports that he was told he had pneumonia. He did get intubated and extubated 24 hours later with a clear chest x-ray. Following this the patient had an elevated high-sensitivity troponin and EKG changes concerning for anterior lateral ischemia as well as a prolonged QTc interval. Cardiology was consulted and the patient was transferred here to [facility]. He denies having any chest pain or pressure. He did report having some shortness of breath with exertion a few days prior to him aspirating. He states the shortness of breath was new for him. He states after aspirating he has had shortnes sof breath, mainly with exertion. improvs with rest. He denies lower extremity edema. He denies any fever, chills, nausea, vomiting, diarrhea, PND orthopnea. The patient has a known history of coronary artery disease with 3 stents placed in 2017-2 different arteries. He also reports having vertebral artery stenosis with stenting that reoccluded. He is currently on Plavix and Eliquis for his vertebral artery stenosis. The patient has also had malignantly elevated blood pressure since being admitted to the hospital. Repeat echocardiogram here at [facility] does show some LV dysfunction and inferior lateral and inferior wall akinesis. [facility] Disclaimer: The information contained in this section may have been updated after the patient was seen, as this information can be updated by other users. Medical History (Updated 10/06/22 @ 09:45 by Felicia Osman APRN) Abnormal echocardiogram Abnormal electrocardiogram [ECG] [EKG] Anxiety Atypical angina CAD (coronary artery disease) Hyperlipidemia Hypertension LV dysfunction Malignant hypertension Neuropathy Skin lesion of left arm SOB (shortness of breath) on exertion TIA (transient ischemic attack) Tobacco use Vertebral artery stenosis with cerebral infarction within last 8 weeks Family History Family history of cancer Family history of myocardial infarction Social History Smoking Status: Current every day smoker tobacco type: cigarettes packs per day: 1 alcohol intake: current substance use type: marijuana current occupational status: unemployed Travel in the last 8 weeks: None caffeine: Yes Review of Systems Review of Systems Review of systems:: pertinent systems reviewed and negative unless documented below Constitutional Constitutional: Reports system reviewed and no additional complaints, except as documented Eyes Eyes: Reports system reviewed and no additional complaints, except as documented ENT Ears, Nose, Mouth, and Throat: Reports system reviewed and no additional complaints, except as documented and Reports dysphagia (aspirated liquid) *Cardiovascular Cardiovascular: Reports system reviewed and no additional complaints, except as documented, Denies chest pain and Denies dyspnea *Respiratory Respiratory: Reports system reviewed and no additional complaints, except as documented and Denies dyspnea *Gastrointestinal Gastrointestinal: Reports system reviewed and no additional complaints, except as documented and Reports dysphagia (aspirated liquid) *Genitourinary Genitourinary: Reports system reviewed and no additional complai
--- NOTE | 2022-10-06 10:13 | PC.NURSE ---
Report given to Lazaro Feldman RN and Lazaro Su RN
--- NOTE | 2022-10-06 10:24 | PC.NURSE ---
pt moved to 217 from 213, report taken from Marychuy Paredes RN; pt was to be started on nipride drip but upon arrival pt's systolic blood pressure 152, held drip at this time but have drip ready in room if need it; pt to go to laboratory apparatus glass blower at some point today, pt and family updated with poc, pt resting in bed, call light within reach
[2022-10-06 10:54] LABS: POC Glucose,Bedside 203 (70-110)
--- NOTE | 2022-10-06 11:02 | PC.NURSE ---
notified hot plate plywood press laborer for MD Rodriguez that pt's bp has sustained less than 160mmHg since pt has come to 217, drip has not been started but have at bedside in case need to start drip
--- NOTE | 2022-10-06 11:16 | CA_ITS ---
FINAL REPORT TECHNIQUE: Grayscale, color Doppler and duplex Doppler ultrasound of the kidneys, aorta and renal arteries was performed. Multiple velocities were measured. CLINICAL HISTORY: HTN, CKD III FINDINGS: Aorta velocity: 83 cm/sec Right kidney: 11.1 cm. No evidence of hydronephrosis or mass. Right intrarenal RI: .73 Right renal artery velocity: 148 cm/sec. Right RAR (Renal artery-Aortic Ratio): 1.8 Left Kidney: 13.1 cm. No evidence of hydronephrosis or mass. Left intrarenal RI: .69 Left renal artery velocity: 195 cm/sec. Left RAR (Renal Artery-Aortic Ratio): 2.3 IMPRESSION: There is no evidence of renal artery stenosis on the right. Less than 60% renal artery stenosis on the left. Recommend CTA or catheter angiogram to further evaluate. Reviewed, Interpreted and Dictated by Cuong Farris III, MD Transcribed by Analisa Bettencourt Authenticated and [facility]
--- NOTE | 2022-10-06 12:00 | PC.NURSE ---
1200-bp 172/94, started nipride drip per order at 0.1mcg/kg/min 1208-bp 164/92, nipride drip continued at 0.1mcg/kg/min
--- NOTE | 2022-10-06 12:32 | PC.NURSE ---
1200-bp 172/94, started nipride drip per order 1208-bp 164/92, nipride drip continued at 0.1mcg/hr
--- NOTE | 2022-10-06 12:55 | PC.NURSE ---
1230-bp 195/110, increased nipride drip to 0.3mcg/kg/min 1236-bp 193/90, increased nipride drip to 0.5mcg/kg/min 1252-bp 145/87, decreased nipride drip to 0.3mcg/kg/min
--- NOTE | 2022-10-06 13:10 | PC.NURSE ---
1304-bp 105/67, held nipride drip at this time 1308-bp 141/87
--- NOTE | 2022-10-06 14:05 | PC.NURSE ---
bp 177/92, restarted nipride drip at 0.1mcg/kg/min
--- NOTE | 2022-10-06 14:32 | PC.NURSE ---
Patient being taken down to dental laboratory supervisor at this time via wheelchair by dental laboratory supervisor staff.
--- NOTE | 2022-10-06 16:20 | PC.NURSE ---
pt back from foundry laborer coreroom, pt had incidence of urine incontinence, changed pt; pts bp 168/95, restarted nipride drip at 0.1mcg/kg/min, cath site is right radial, no bruising or drainage noted at this time, educated pt on importance of not using that extremity to lift or pull/push for a week, pt resting in bed, call light within reach
[2022-10-06 16:41] LABS: POC Glucose,Bedside 123 (70-110)
--- NOTE | 2022-10-06 18:14 | PC.NURSE ---
instructed by Attila with [facility] to wait until aPTT result comes back before giving bolus or starting drip, drawing aPTT now, will await results and have drip and bolus ready to start
--- NOTE | 2022-10-06 19:06 | PC.NURSE ---
bp 172/97, increasing nipride drip to 0.2mcg/kg/min
[2022-10-06 20:48] LABS: POC Glucose,Bedside 166 (70-110)
[2022-10-07] VITALS (15 sets, daily range): BP systolic 140–162; BP diastolic 61–109; PULSE 58–80; RESP 15–29; TEMP 36.7–37.2; O2SAT 93–97; BMI 28.8
[2022-10-07 06:22] LABS: POC Glucose,Bedside 136 (70-110)
--- NOTE | 2022-10-07 07:27 | EXP.ACUTE.PN ---
Subjective *Date: 10/06/22 *Time: 14:27 Interval history: Patient stable on room air. No complaint of chest pain. No nausea or vomiting. Overall feeling well. Taken for heart cath today. Medical Exam Vital signs and Labs for Last 24 Hours: Vital Signs Temp Pulse Pulse Resp BP BP Pulse Ox 10/07/22 06:00 58 L 29 H 150/75 H 96 10/07/22 04:00 60 10/07/22 04:00 98.1 F 10/07/22 00:00 60 10/07/22 04:00 60 151/91 H 94 L 10/07/22 04:00 60 10/07/22 02:00 58 L 24 143/78 H 95 10/06/22 20:00 60 10/07/22 00:00 98.0 F 10/06/22 22:05 67 15 109/66 L 91 L 10/06/22 21:05 64 18 138/91 H 96 10/07/22 00:00 24 146/72 H 95 10/07/22 00:00 61 10/06/22 23:05 59 L 18 119/68 95 10/06/22 20:05 68 17 166/94 H 95 10/06/22 22:00 67 15 109/66 L 91 L 10/06/22 20:00 95 10/06/22 20:00 68 10/06/22 19:05 66 24 172/97 H 97 10/06/22 18:05 70 25 H 154/77 H 95 10/06/22 17:35 72 19 169/98 H 95 10/06/22 17:05 59 L 19 162/90 H 94 L 10/06/22 16:50 57 L 14 155/89 H 92 L 10/06/22 18:35 67 24 144/79 H 95 10/06/22 16:35 59 L 13 167/106 H 99 10/06/22 18:00 71 25 H 154/77 H 97 10/06/22 16:20 64 12 168/95 H 97 10/06/22 16:05 68 18 168/83 H 97 10/06/22 16:00 69 18 165/86 H 97 10/06/22 15:55 68 18 170/119 H 98 10/06/22 15:56 66 78 18 144/91 H 97 10/06/22 14:00 66 20 177/92 H 97 10/06/22 12:00 60 10/06/22 11:19 98.4 F 10/06/22 10:00 63 20 152/87 H 94 L 10/06/22 11:42 98 10/06/22 10:53 64 22 156/92 H 95 10/06/22 08:00 60 10/06/22 07:38 97.7 F 61 20 187/77 H 96 Intake and Output 10/06/22 10/06/22 10/07/22 15:59 23:59 07:59 Intake Total 0 / 892.3 600 / 892.3 292.3 / 292.3 Output Total 0 / 400 0 / 400 350 / 350 Balance 0 / 492.3 600 / 492.3 -57.7 / -57.7 Intake: Intake, Oral Amount 0 / 840 600 / 840 240 / 240 Infusion Intake 52.3 / 52.3 Nitroprusside Sodium 50 mg In 52.3 / 52.3 Dextrose 5 % in Water 250 ml @ 0.3 MCG/KG/MIN 9.876 mls/hr IV .Q24H [facility] Rx#:[id number] Output: Output, Urine Amount 0 / 400 0 / 400 350 / 350 Other: Number of Voids 1 Number of Unmeasured Voids 1 1 0 Weight 108.86 kg 104.95 kg Patient Weight 10/07/22 23:59 Weight 104.95 kg Laboratory Results - last 24 hr 10/06/22 10:47: POC Glucose 203 H 10/06/22 16:32: POC Glucose 123 H 10/06/22 20:41: POC Glucose 166 H 10/07/22 06:14: POC Glucose 136 H I & O for Labs for Last 24 Hours: Intake & Output 10/04/22 10/05/22 10/06/22 10/07/22 23:59 23:59 23:59 23:59 Intake Total 360 / 360 1080 / 1080 600 / 892.3 292.3 / 292.3 Output Total 600 / 600 1800 / 1800 400 / 400 350 / 350 Balance -240 / -240 -720 / -720 200 / 492.3 -57.7 / -57.7 Weight 110.847 kg 108.862 kg 108.86 kg 104.95 kg Constitutional: Present no acute distress, average body habitus and cooperative Head: Present atraumatic and normocephalic ENT: Present normal exam Neck: Present normal inspection Respiratory: Present normal respiratory effort; Absent accessory muscle use, rhonchi, wheezes or crackles Cardiac: Present Reg Rate and Rhythm GI: Present soft and normal bowel sounds; Absent distention or tenderness Extremities: Present normal inspection and full ROM Skin: Present intact; Absent erythema Neuro: Present Grossly Intact, alert, awake, oriented x 3 and moves all extremities Assessment and Plan *Assessment and plan (1) Pneumonia: Status: Acute Qualifiers: Pneumonia type: due to unspecified organism Laterality: unspecified laterality Lung location: unspecified part of lung Qualified Code(s): J18.9 - Pneumonia, unspecified organism Category: Medical Code(s): J18.9 - Pneumonia, unspecified organism (2) HFrEF (heart failure with red
--- NOTE | 2022-10-07 07:31 | EXP.ACUTE.PN ---
Subjective *Date: 10/07/22 *Time: 11:09 Interval history: Patient feels well this morning. No chest pain or shortness of breath. Stable on room air. Required oxygen overnight more for comfort. N.p.o. pending renal artery stenting today. Findings yesterday on heart cath explained this morning. Patient will need CABG in the next 3 to 4 weeks. Medical Exam Vital signs and Labs for Last 24 Hours: Vital Signs Temp Pulse Pulse Resp BP BP Pulse Ox 10/07/22 06:00 58 L 29 H 150/75 H 96 10/07/22 04:00 60 10/07/22 04:00 98.1 F 10/07/22 00:00 60 10/07/22 04:00 60 151/91 H 94 L 10/07/22 04:00 60 10/07/22 02:00 58 L 24 143/78 H 95 10/06/22 20:00 60 10/07/22 00:00 98.0 F 10/06/22 22:05 67 15 109/66 L 91 L 10/06/22 21:05 64 18 138/91 H 96 10/07/22 00:00 24 146/72 H 95 10/07/22 00:00 61 10/06/22 23:05 59 L 18 119/68 95 10/06/22 20:05 68 17 166/94 H 95 10/06/22 22:00 67 15 109/66 L 91 L 10/06/22 20:00 95 10/06/22 20:00 68 10/06/22 19:05 66 24 172/97 H 97 10/06/22 18:05 70 25 H 154/77 H 95 10/06/22 17:35 72 19 169/98 H 95 10/06/22 17:05 59 L 19 162/90 H 94 L 10/06/22 16:50 57 L 14 155/89 H 92 L 10/06/22 18:35 67 24 144/79 H 95 10/06/22 16:35 59 L 13 167/106 H 99 10/06/22 18:00 71 25 H 154/77 H 97 10/06/22 16:20 64 12 168/95 H 97 10/06/22 16:05 68 18 168/83 H 97 10/06/22 16:00 69 18 165/86 H 97 10/06/22 15:55 68 18 170/119 H 98 10/06/22 15:56 66 78 18 144/91 H 97 10/06/22 14:00 66 20 177/92 H 97 10/06/22 12:00 60 10/06/22 11:19 98.4 F 10/06/22 10:00 63 20 152/87 H 94 L 10/06/22 11:42 98 10/06/22 10:53 64 22 156/92 H 95 10/06/22 08:00 60 10/06/22 07:38 97.7 F 61 20 187/77 H 96 Intake and Output 10/06/22 10/06/22 10/07/22 15:59 23:59 07:59 Intake Total 0 / 892.3 600 / 892.3 292.3 / 292.3 Output Total 0 / 400 0 / 400 350 / 350 Balance 0 / 492.3 600 / 492.3 -57.7 / -57.7 Intake: Intake, Oral Amount 0 / 840 600 / 840 240 / 240 Infusion Intake 52.3 / 52.3 Nitroprusside Sodium 50 mg In 52.3 / 52.3 Dextrose 5 % in Water 250 ml @ 0.3 MCG/KG/MIN 9.876 mls/hr IV .Q24H [facility] Rx#:[id number] Output: Output, Urine Amount 0 / 400 0 / 400 350 / 350 Other: Number of Voids 1 Number of Unmeasured Voids 1 1 0 Weight 108.86 kg 104.95 kg Patient Weight 10/07/22 23:59 Weight 104.95 kg Laboratory Results - last 24 hr 10/06/22 10:47: POC Glucose 203 H 10/06/22 16:32: POC Glucose 123 H 10/06/22 20:41: POC Glucose 166 H 10/07/22 06:14: POC Glucose 136 H I & O for Labs for Last 24 Hours: Intake & Output 10/04/22 10/05/22 10/06/22 10/07/22 23:59 23:59 23:59 23:59 Intake Total 360 / 360 1080 / 1080 600 / 892.3 292.3 / 292.3 Output Total 600 / 600 1800 / 1800 400 / 400 350 / 350 Balance -240 / -240 -720 / -720 200 / 492.3 -57.7 / -57.7 Weight 110.847 kg 108.862 kg 108.86 kg 104.95 kg Constitutional: Present no acute distress, average body habitus and cooperative Head: Present atraumatic and normocephalic ENT: Present normal exam Neck: Present normal inspection Respiratory: Present normal respiratory effort; Absent accessory muscle use, rhonchi, wheezes or crackles Cardiac: Present Reg Rate and Rhythm GI: Present soft and normal bowel sounds; Absent distention or tenderness Extremities: Present normal inspection and full ROM Skin: Present intact; Absent erythema Neuro: Present Grossly Intact, alert, awake, oriented x 3 and moves all extremities Assessment and Plan *Assessment and plan (1) Pneumonia: Status: Acute Qualifiers: Laterality: unspecified laterality Lung location: unspecified part of lung Pneumonia type: due to unspecified organism Qualified Code(
[2022-10-07 09:30] LABS: Anion Gap 9.9 mEq/L (5-15); Blood Urea Nitrogen 33 mg/dl (9-20); Calcium 8.7 mg/dl (8.4-10.2); Carbon Dioxide 27 mmol/L (22.0-30.0); Chloride 109 mmol/L (98-107); Creatinine Clearance Estimated 44 mL/min (50-200); Estimated Glomerular Filt Rate 26 ml/min (>60); GFR (African American) 32 ML/MIN (>60); Glucose 139 mg/dl (74-100); Potassium 3.9 mmoL/L (3.5-5.1); Sodium 142 mmol/L (136-145)
[2022-10-07 09:35] LABS: Basophils % 0.2 % (0.1-2.0); Eosinophils # 0.3 K/mm3 (0.0-0.4); Eosinophils % 2.3 % (0.1-12.0); Hematocrit 39.9 % (42.0-52.0); Hemoglobin 12.8 g/dL (14.1-18.0); Lymphocytes # 1.4 K/mm3 (0.7-4.5); Lymphocytes % 11.7 % (10-50); Mean Corpuscular HGB Conc 32.1 g/dL (31.8-35.4); Mean Corpuscular Hemoglobin 26.2 pg (27.0-31.2); Mean Corpuscular Volume 81.6 fl (80-94); Mean Platelet Volume 9.3 fl (7.4-10.4); Monocytes # 0.8 K/mm3 (0.1-1.0); Monocytes % 6.6 % (1.7-9.3); Neutrophils # 9.3 K/mm3 (1.8-7.8); Neutrophils % 79.1 % (37.0-80.0); Platelet Count 208 K/mm3 (142-424); Red Blood Count 4.89 M/mm3 (4.60-6.20); Red Cell Distribution Width 13.9 % (11.5-17.5); White Blood Count 11.8 K/mm3 (4.8-10.8)
--- NOTE | 2022-10-07 09:45 | PC.NURSE ---
0915-bp 144/91, decreased nipride drip to 0.1mcg/kg/min 0935-bp 113/77, held nipride drip at this time
--- NOTE | 2022-10-07 11:24 | EXP.CARD.PN ---
Subjective Subjective Date: 10/07/22 Time: 09:15 Interval history: This is a 67-year-old white gentleman who was transferred here to [facility] from [facility] due to an elevated high-sensitivity troponin and abnormal EKG changes. The patient underwent left cardiac catheterization yesterday and was found to have severe left main disease and severe proximal right coronary artery disease. The patient will need to be referred for coronary artery bypass grafting. He also had severe bilateral renal artery stenosis and an 8 mm right renal mass noted as well. The renal arteries were not able to be stented yesterday due to the length of the catheters from a radial approach. His Eliquis was held overnight and he will be brought [facility] this morning to undergo stenting to the bilateral renal arteries. 3 to 4 weeks post renal artery stenting the patient would benefit from coronary artery bypass grafting. And then once he is recovered from bypass the 8 mm right renal mass can then be addressed. This morning he denies any chest pain or pressure. He is still having some shortness of breath intermittently as well as a cough, but states that this has significantly improved. He denies any lower extremity edema. He denies any fever, chills, nausea, vomiting, diarrhea, PND orthopnea. Exam Data for Last 24 hours Vital signs and Labs for Last 24 Hours: Temp Pulse Resp BP Pulse Ox 98.9 F 58 L 15 162/74 H 96 10/07/22 08:00 10/07/22 08:00 10/07/22 08:00 10/07/22 08:00 10/07/22 08:00 Laboratory Results - last 24 hr 10/06/22 16:32: POC Glucose 123 H 10/06/22 20:41: POC Glucose 166 H 10/07/22 06:14: POC Glucose 136 H 10/07/22 09:12: WBC 11.8 H D, RBC 4.89, Hgb 12.8 L, Hct 39.9 L, MCV 81.6, MCH 26.2 L, MCHC 32.1, RDW 13.9, Plt Count 208, MPV 9.3, Neut % (Auto) 79.1, Lymph % (Auto) 11.7, [place] % (Auto) 6.6, Eos % (Auto) 2.3, Baso % (Auto) 0.2, Neut # (Auto) 9.3 H, Lymph # (Auto) 1.4, [place] # (Auto) 0.8, Eos # (Auto) 0.3, Baso # (Auto) 0.0, Sodium 142, Potassium 3.9, Chloride 109 H, Carbon Dioxide 27, Anion Gap 9.9, BUN 33 H, Creatinine 2.50 H D, Estimated Creat Clear 44, Estimated GFR 26 L, Est GFR ( Amer) 32 L D, Glucose 139 H, Calcium 8.7 I & O for Last 24 hours: Intake & Output 10/04/22 10/05/22 10/06/22 10/07/22 23:59 23:59 23:59 23:59 Intake Total 360 / 360 1080 / 1080 600 / 892.3 292.3 / 292.3 Output Total 600 / 600 1800 / 1800 400 / 400 600 / 600 Balance -240 / -240 -720 / -720 200 / 492.3 -307.7 / -307.7 Weight 244 lb 6 oz 240 lb 239 lb 15.923 oz 231 lb 6 oz Constitutional Constitutional: no acute distress and average body habitus *Routine HEENT Exam Head: Present normocephalic and atraumatic ENT: Present mucous membranes moist *Routine Neck Exam Neck: Present supple, full ROM and normal carotid upstroke; Absent JVD, carotid bruit or lymphadenopathy *Routine Respiratory Exam Respiratory: Present CTA bilaterally, normal respiratory effort, able to speak in complete sentences and symmetric chest movement *Routine Cardiovascular Exam Cardiovascular: Present RRR, Normal S1 and Normal S2; Absent murmur or gallop *Routine Abdominal Exam Abdominal: Present soft and normoactive bowel sounds; Absent tenderness, distended or organomegaly *Routine Extremities Exam Extremities: Present full ROM, pulses intact and normal capillary refill; Absent cyanosis, clubbing or edema *Routine Skin Exam Skin: Present intact and warm; Absent erythema *Routine Neurological Exam Neurological: Present alert, oriented X3 and CN II-XII intact; Absent sensory deficit or motor deficit Routine Psychiatric Exam Psychiatric: Present normal affect Progress Note: A&P Assessment and plan (1) HFrEF (heart failure with reduced ejection fraction): Status: Acute (2) CAD (coronary artery disease): Status: Chronic (3) Renal artery stenosis: Status: Acute (4) DENY (acute kidney injury): Status: Acu
[2022-10-07 11:44] LABS: POC Glucose,Bedside 132 (70-110)
--- NOTE | 2022-10-07 13:00 | PC.NURSE ---
MD Rodriguez instructed this RN to order a lunch tray for pt and to have pt able to eat until after breakfast in the morning, Felicia to place NPO orders in the am after pt has breakfast and then pt will to go to laborer hoisting for procedure tomorrow afternoon, pt unable to go today due to kidney function lab results
[2022-10-07 17:34] LABS: POC Glucose,Bedside 279 (70-110)
[2022-10-07 18:30] LABS: Chloride 106 mmol/L (98-107); Sodium 144 mmol/L (136-145)
[2022-10-07 18:33] LABS: Anion Gap 11.9 mEq/L (5-15); Blood Urea Nitrogen 35 mg/dl (9-20); Calcium 8.8 mg/dl (8.4-10.2); Carbon Dioxide 30 mmol/L (22.0-30.0); Creatinine Clearance Estimated 44 mL/min (50-200); Estimated Glomerular Filt Rate 26 ml/min (>60); GFR (African American) 32 ML/MIN (>60); Glucose 185 mg/dl (74-100); Potassium 3.9 mmoL/L (3.5-5.1)
[2022-10-07 20:21] LABS: POC Glucose,Bedside 90 (70-110)
[2022-10-08] VITALS (22 sets, daily range): BP systolic 114–172; BP diastolic 62–104; PULSE 57–71; RESP 12–26; TEMP 36.5–37.3; O2SAT 91–97; BMI 28.8
[2022-10-08 05:37] LABS: POC Glucose,Bedside 127 (70-110)
[2022-10-08 06:07] LABS: Basophils % 0.4 % (0.1-2.0); Eosinophils # 0.3 K/mm3 (0.0-0.4); Eosinophils % 3.4 % (0.1-12.0); Hematocrit 40.7 % (42.0-52.0); Hemoglobin 12.8 g/dL (14.1-18.0); Lymphocytes # 1.7 K/mm3 (0.7-4.5); Lymphocytes % 17.2 % (10-50); Mean Corpuscular HGB Conc 31.4 g/dL (31.8-35.4); Mean Corpuscular Hemoglobin 26.1 pg (27.0-31.2); Mean Corpuscular Volume 83.1 fl (80-94); Mean Platelet Volume 9.4 fl (7.4-10.4); Monocytes # 0.7 K/mm3 (0.1-1.0); Monocytes % 7.3 % (1.7-9.3); Neutrophils # 7.2 K/mm3 (1.8-7.8); Neutrophils % 71.7 % (37.0-80.0); Platelet Count 204 K/mm3 (142-424); Red Blood Count 4.89 M/mm3 (4.60-6.20); Red Cell Distribution Width 13.9 % (11.5-17.5)
[2022-10-08 06:15] LABS: Alanine Aminotransferase 35 U/L (12-78); Albumin Level 3.4 g/dl (3.5-5.0); Albumin/Globulin Ratio 1.2 (1.1-1.8); Alkaline Phosphatase 107 U/L (38-126); Anion Gap 10.9 mEq/L (5-15); Aspartate Amino Transferase 29 U/L (17-59); Bilirubin,Total 0.3 mg/dl (0.2-1.3); Blood Urea Nitrogen 28 mg/dl (9-20); Calcium 8.5 mg/dl (8.4-10.2); Carbon Dioxide 26 mmol/L (22.0-30.0); Chloride 108 mmol/L (98-107); Creatinine Clearance Estimated 48 mL/min (50-200); Estimated Glomerular Filt Rate 29 ml/min (>60); GFR (African American) 35 ML/MIN (>60); Globulin 2.8 g/dL (1.3-3.2); Glucose 137 mg/dl (74-100); Magnesium 2.1 mg/dl (1.6-2.3); Potassium 3.9 mmoL/L (3.5-5.1); Sodium 141 mmol/L (136-145); Total Protein,Serum 6.2 g/dl (6.3-8.2)
--- NOTE | 2022-10-08 06:18 | PC.NURSE ---
BP STABLE THROUGHOUT THE NIGHT OFF OF THE NIPRIDE GTT, BUT AROUND 0500 PT'S SBP > 160 CONTINUOUSLY AND NIPRIDE GTT WAS RESTARTED AT 0610 WHEN THE PT'S BP WAS 204/110. GTT STARTED AT 0.3 MCG/KG/MIN OR 9.5ML/HR. WILL TITRATE NEEDED FOR A SBP <160 ORDERED.
--- NOTE | 2022-10-08 07:08 | IR_ITS ---
APPROVED REPORT Patient Location: Inpatient PROCEDURES Bilateral selective renal artery stenting INDICATION Bilateral renal artery stenosis, Renovascular hypertension, Malignant hypertension, Chronic renal failure creatinine 2.0-3.6 Informed consent was obtained prior to the procedure. COMPLICATIONS None Estimated Blood Loss: Less than 10 mls TECHNIQUE 1% lidocaine used anesthetize right groin the right femoral nerves accessed via the center technique and a 6 Kuwaiti sheath is placed in the right femoral artery. A short 6 [place]i GUTIERREZ guide catheter was placed under fluoroscopic guidance into the left renal artery following therapeutic heparin being administered. A Choice PT extra-support wire was placed distally in the left renal artery and 1 cc of contrast was injected to confirm ostial placement. Following this the 6 mm x 18 mm Herculink stent was deployed at 13 kya reducing the severe stenosis to 0%. Additional 1/2 cc of contrast was used for post stent placement. This procedure was repeated in the right renal artery this time using a 6 mm x 15 mm Herculink stent deployed at 13 kya. Excellent angiograph results were obtained. At the end the procedure the apparatus was removed the groin was reprepped gloves were changed sheath was removed and hemostasis was achieved using Perclose device patient was transferred the postop putting in stable condition IMPRESSION Successful percutaneous stenting of the bilateral renal arteries, 6 mm x 18 mm mm Herculink stent placed in the left renal artery 6.0 x 15 mm Herculink stent placed in the right renal artery PLAN 1. Dual antiplatelet therapy is reasonable for the next 3 to 4 weeks. 2. Referred to CT surgery [facility] for surgical revascularization for three-vessel coronary disease 3. Referral to [facility] urology for evaluation of solid renal mass which is suspected renal cell carcinoma 4. Patient to have chemistry panel on Tuesday in the office and to follow-up in Tuesday for further outpatient blood pressure assessment 5. Discharge home on high intensity statin Electronically signed by : Bola Rodriguez MD 10/08/2022 11:55:30
--- NOTE | 2022-10-08 08:58 | EXP.CARD.PN ---
Subjective Subjective Date: 10/08/22 Time: 08:30 Principal diagnosis: CAD, NANETTE Interval history: This is a 67-year-old white gentleman who was transferred here to [facility] from [facility] due to an elevated high-sensitivity troponin and abnormal EKG changes. The patient did undergo a left cardiac catheterization on this admission was found to have severe left main disease and severe proximal right coronary artery disease. The patient will be referred for coronary artery bypass grafting. He also has severe bilateral renal artery stenosis and an 8 mm right renal mass as well. The patient's renal arteries have not been intervened on because his initial cath was via radial approach and the stents could not be delivered to his renal arteries via radial approach due to how tall he was. Patient's Eliquis has been on hold and he is scheduled to undergo repeat renal angiogram today with stenting to the bilateral renal arteries. Dr. Rodriguez has discussed the patient's case with Dr. Tenorio at [facility] [place]. The plan will be for the patient to had an intervention to his bilateral renal arteries and then in 3 to 4 weeks proceed with coronary artery bypass grafting. Once he has recovered from CABG then he will need the 8 mm renal mass which is likely renal cell carcinoma addressed. This morning he denies any chest pain or pressure. He is still having shortness of breath and cough intermittently but this continues to improve. He denies any lower extremity edema. He denies any fever, chills, nausea, vomiting, diarrhea, PND or orthopnea. Exam Data for Last 24 hours Vital signs and Labs for Last 24 Hours: Temp Pulse Resp BP Pulse Ox O2 Del Method O2 Flow Rate 98.1 F 66 18 151/83 H 96 Room Air 2 10/08/22 08:00 10/08/22 08:00 10/08/22 08:00 10/08/22 08:00 10/08/22 08:00 10/08/22 08:00 10/07/22 08:00 Laboratory Results - last 24 hr 10/07/22 09:12: WBC 11.8 H D, RBC 4.89, Hgb 12.8 L, Hct 39.9 L, MCV 81.6, MCH 26.2 L, MCHC 32.1, RDW 13.9, Plt Count 208, MPV 9.3, Neut % (Auto) 79.1, Lymph % (Auto) 11.7, Vinton % (Auto) 6.6, Eos % (Auto) 2.3, Baso % (Auto) 0.2, Neut # (Auto) 9.3 H, Lymph # (Auto) 1.4, Vinton # (Auto) 0.8, Eos # (Auto) 0.3, Baso # (Auto) 0.0, Sodium 142, Potassium 3.9, Chloride 109 H, Carbon Dioxide 27, Anion Gap 9.9, BUN 33 H, Creatinine 2.50 H D, Estimated Creat Clear 44, Estimated GFR 26 L, Est GFR ( Amer) 32 L D, Glucose 139 H, Calcium 8.7 10/07/22 11:38: POC Glucose 132 H 10/07/22 17:27: POC Glucose 279 H 10/07/22 18:15: Sodium 144, Potassium 3.9, Chloride 106, Carbon Dioxide 30, Anion Gap 11.9, BUN 35 H, Creatinine 2.50 H, Estimated Creat Clear 44, Estimated GFR 26 L, Est GFR ( Amer) 32 L, Glucose 185 H D, Calcium 8.8 10/07/22 20:10: POC Glucose 90 10/08/22 05:29: POC Glucose 127 H 10/08/22 05:32: WBC 10.0, RBC 4.89, Hgb 12.8 L, Hct 40.7 L, MCV 83.1, MCH 26.1 L, MCHC 31.4 L, RDW 13.9, Plt Count 204, MPV 9.4, Neut % (Auto) 71.7, Lymph % (Auto) 17.2, Vinton % (Auto) 7.3, Eos % (Auto) 3.4, Baso % (Auto) 0.4, Neut # (Auto) 7.2, Lymph # (Auto) 1.7, Vinton # (Auto) 0.7, Eos # (Auto) 0.3, Baso # (Auto) 0.0, Sodium 141, Potassium 3.9, Chloride 108 H, Carbon Dioxide 26, Anion Gap 10.9, BUN 28 H, Creatinine 2.30 H, Estimated Creat Clear 48, Estimated GFR 29 L, Est GFR ( Amer) 35 L, Glucose 137 H D, Calcium 8.5, Magnesium 2.1, Total Bilirubin 0.3, AST 29 D, ALT 35, Alkaline Phosphatase 107, Total Protein 6.2 L, Albumin 3.4 L, Globulin 2.8, Albumin/Globulin Ratio 1.2 I & O for Last 24 hours: Intake & Output 10/05/22 10/06/22 10/07/22 10/08/22 23:59 23:59 23:59 23:59 Intake Total 1080 / 1080 600 / 892.3 892.3 / 892.3 1251 / 1251 Output Total 1800 / 1800 400 / 400 725 / 850 1875 / 1875 Balance -720 / -720 200 / 492.3 167.3 / 42.3 -624 / -624 Weight 240 lb 239 lb 15.923 oz 231 lb 6 oz 231 lb 14.4 oz Microbiology Reports for the Last 24 Hours: Microbiology 10/05/22 13:37 Sputum - Ex
--- NOTE | 2022-10-08 09:16 | PC.NURSE ---
COURTESY TECH NOTE; ROUNDED ON PT 0820, PT DENIED NEED FOR DRINK, ASSISTANCE WITH RESTROOM, AND NEED TO REPOSITION IN BED. CALL LIGHT WITHIN REACH, NO FURTHER REQUESTS AT THIS TIME LIDIA LOYOLA
--- NOTE | 2022-10-08 10:33 | PC.NURSE ---
Addendum entered by Charity Murillo RN 10/08/22 13:32: 1220 nitroprusside drip decreased to 0.1 mcg/kg/min 1335 nitroprusside drip stopped at this time. Original Note: At start of shift pt Nitroprusside drip infusing at 0.3mcg/kg/min. 1005 drip decreased to 0.2mcg/kg/min per Dr Rodriguez request. states that he wants pt bp slightly higher than 114/62.
--- NOTE | 2022-10-08 11:18 | PC.NURSE ---
1115 Pt off unit to Digital Media Planner with Evonne Oro RN
--- NOTE | 2022-10-08 12:07 | PC.NURSE ---
received report from Daniel WOODY molder labels.
[2022-10-08 12:18] LABS: CATHL Activated Clotting Time 320 SEC (74-125)
[2022-10-08 13:04] LABS: POC Glucose,Bedside 162 (70-110)
--- NOTE | 2022-10-08 13:05 | PC.NURSE ---
fingerstick bloodsugar 161 after procedure.
--- NOTE | 2022-10-08 13:35 | EXP.DC.SUM ---
General Admission date:: 10/04/22 Discharge date: 10/08/22 HPI HPI HPI: Mr. Anderson is a 67-year-old gentleman with history of CAD, COPD, hyper tension, vasculopathy, with history of TIAs. Admitted to [facility] on 09/30 with pneumonia and respiratory failure. Ended up intubated and on a ventilator. Was extubated yesterday. Currently on 2 L oxygen. Reported to have improving DENY. Request was made for transfer due to abnormalities on EKG concerning for anterolateral ischemia. Troponin 6 on their high-sensitivity troponin. Patient has no chest pain at this time. He also has a prolonged QT on EKG. Cardiology was contacted for transfer and further work-up. Patient excepted for further management. On arrival, he is stable on 2 L nasal cannula oxygen. States he is feeling well. Noted to have severely elevated blood pressure with systolics in the 180s. After much discussion, states that his neurologist told him to keep his blood pressure systolic above 160 due to cerebral artery stenosis per his report. He appears to be describing vertebral artery stenosis. He is currently on carvedilol, losartan, Imdur and still has hypertensive urgency. Reports history of a left heart cath in 2017 with stenting of his LAD. No other heart attacks per his report. Additional report of echo performed at [facility] showing grade 1 diastolic dysfunction and LVH with normal EF(?) Currently on Zosyn for pneumonia. Sees neurology at [facility] Hospital Course Hospital Course: 67-year-old male who presented to [facility] as a transfer from [facility]. He originally presented to [facility] on 09/30 with pneumonia and respiratory failure. Intubated for 2 days. After extubation, concern for T wave inversions and prolonged QT. Transferred for cardiology evaluation. Cardiology was consulted during admission. Patient was taken for left heart cath and found to have proximal LAD lesion necessitating CABG. Also found to have bilateral renal artery stenosis. PCI performed on bilateral renal artery stenosis. Improvements in blood pressure. Patient stable for discharge home. We will have close follow-up with cardiology next week. Is referred to [facility] surgery for intervention with CABG in the next 3 to 4 weeks. Pneumonia has resolved. Stable for discharge home on room air. Problems addressed as follows: Pneumonia -Required intubation at previous hospital, initially presented on 2 L nasal cannula to [facility]. Weaned to room air within 24 hours of admission. Completed antibiotics with levofloxacin to complete a total of 7 days of antibiotics. No indication for further antibiotics at time of discharge. Heart failure with reduced ejection fraction Abnormal EKG CAD Malignant hypertension Renal artery stenosis -Patient's presentation for pneumonia at outside hospital was concerning for component of CHF exacerbation as well. Had significant improvement pretty quickly from his respiratory failure. In light of findings on EKG, patient was transferred to [facility] for further management. Cardiology was consulted. Given concern for T wave inversions and Wellens sign in inferior leads, patient was taken for left heart cath on 10/06. Found to have proximal LAD lesion necessitating coronary artery bypass surgery. Will be referred to for procedure in the next month. Was taken back to the [facility] for stenting of his bilateral renal arteries given the finding of bilateral stenosis. This is likely the culprit in his malignant hypertension. At this time we will continue dual and platelet therapy with aspirin and Plavix for 1 month. Patient is also on Eliquis, continue at this time. Increase GI prophylaxis to pantoprazole daily. Continue blood pressure regimen of losartan 50 mg daily and carvedilol 25 mg twice daily. Patient to have close follow-up on Tuesday with cardiology for repeat la
--- NOTE | 2022-10-08 15:14 | PC.NURSE ---
All drip titrations and critical care of patient provided by Delmar Perales RN was provided under my direct supervision
--- NOTE | 2022-10-08 16:01 | HMH.PHAINT1 ---
Pharmacy Intervention Comments: Discharge medication reviewed with patient and patient's . - Aspirin 81mg (since on duel antiplatelet therapy told to watch for bleeding and bruising) - Carvedilol dose increased to 25mg (was 12.5) (patient told to watch for increase in feeling tired and sluggish) - pantoprazole 40mg (switch from omeprazole ( watch for N/V/D)
--- NOTE | 2022-10-11 13:04 | CARE MANAGER ---
Called and spoke with patient to discuss recent discharge. He stated that he is doing well and had no questions or concerns at time of call.
== END 2022-10-08 16:16 | disposition home or self-care (01) | DRG 252 ==
PROVIDERS: Internal Medicine; Nurse Practitioner Family; Admitting Provider Internal Medicine Adolescent Medicine; PCP Physician Assistant; Visit Provider Internal Medicine Adolescent Medicine
PROC: B2111ZZ Fluoroscopy of Multiple Coronary Arteries using Low Osmolar Contrast (ICD-10-PCS; principal; 2022-10-06 12:45)
PROC: 04H93DZ Insertion of Intraluminal Device into Right Renal Artery, Percutaneous Approach (ICD-10-PCS; principal; 2022-10-08 12:00)
DX: I25.10 Atherosclerotic heart disease of native coronary artery without angina pectoris (principal); J18.9 Pneumonia, unspecified organism; I13.0 Hypertensive heart and chronic kidney disease with heart failure and stage 1 through stage 4 chronic kidney disease, or unspecified chronic kidney disease; I24.9 Acute ischemic heart disease, unspecified; N17.9 Acute kidney failure, unspecified; T82.855A Stenosis of coronary artery stent, initial encounter; I50.20 Unspecified systolic (congestive) heart failure; Z86.73 Personal history of transient ischemic attack (TIA), and cerebral infarction without residual deficits; I65.09 Occlusion and stenosis of unspecified vertebral artery; F41.9 Anxiety disorder, unspecified; E78.2 Mixed hyperlipidemia; I15.0 Renovascular hypertension; I70.1 Atherosclerosis of renal artery; N18.9 Chronic kidney disease, unspecified; Y83.1 Surgical operation with implant of artificial internal device as the cause of abnormal reaction of the patient, or of later complication, without mention of misadventure at the time of the procedure
CPT/HCPCS: 36252; 36415; 37236; 37237; 76770; 80048; 80053; 80061; 82962; 83036; 83735; 83880; 84443; 84484; 85007; 85025; 85347; 87070; 87205; 87636; 93005; 93306; 93458; 93976; 97161; 97165; 99152; 99153; C1725; C1760; C1769; C1876; C1887; C1894; J1644; J1956; Q9967

== ENCOUNTER → 2022-10-15 12:01 | Outpatient (CLI) | payer MEDICARE, MEDICAID, SELFPAY ==
[2022-10-15 13:05] LABS: Chloride 108 mmol/L (98-107); Sodium 142 mmol/L (136-145)
[2022-10-15 13:08] LABS: Blood Urea Nitrogen 24 mg/dl (9-20); Calcium 9.1 mg/dl (8.4-10.2); Carbon Dioxide 25 mmol/L (22.0-30.0); Estimated Glomerular Filt Rate 27 ml/min (>60); GFR (African American) 33 ML/MIN (>60); Glucose 248 mg/dl (74-100)
== END ==
PROVIDERS: PCP Physician Assistant; Visit Provider Nurse Practitioner Family
DX: N17.9 Acute kidney failure, unspecified (principal)
CPT/HCPCS: 36415; 80048

== ENCOUNTER 2023-04-06 10:40 | Outpatient (CLI) | payer MEDICARE, MEDICAID, SELFPAY ==
--- NOTE | 2023-04-06 10:41 | FL_ITS ---
FINAL REPORT CLINICAL HISTORY: DYSPHAGIA FINDINGS: MODIFIED BARIUM SWALLOW History: Dysphagia FINDINGS: Fluoroscopy was provided for the speech pathologist to evaluate the swallowing mechanism. The patient was given several different consistencies of barium while the swallow was visualized fluoroscopically. The report of the speech pathologist should be consulted prior to making dietary decisions. FLUOROSCOPY TIME: not provided IMPRESSION: Modified barium swallow under fluoroscopic guidance. Please see the report of the speech pathologist for Dietary recommendations. Films reviewed , interpreted and dictated by Dr. Farris Transcribed by Francisco Rosenthal PA-C. Reviewed, Interpreted and Dictated by Cuong Farris III, MD Transcribed by LOW Santiago Authenticated and [facility]
--- NOTE | 2023-04-06 11:49 | HMH.SLMBS2 ---
Speech & Language Evaluation Speech/Language Mod Barium Swallow Start: 04/06/23 11:18 Freq: once Status: Complete Protocol: Document 04/06/23 11:18 MARGUERITE (Rec: 04/06/23 11:49 [facility] [id number]) General Information General Current Food Consistancy Regular,Thin Liquids Dentition Poor Dentition Oxygen Status Room Air Patient Orientation Person,Place,Time,Situation Ability to Follow Directions Good Communication Ability No Impairment MBS Recommendations Diet Dietary Recommendations Mechanical Soft,Dysphagia Mechanical Soft,Ground Meats, Chopped Meats,Thin Liquids Comment puree/pudding wash with meals after every 2-3 bites Treatment/Strategies Treatment Recommendation Compens. Strategy Educat. Strategy/Precaution Recommend Sitting Upright (90 deg),Chin Tuck,Double Swallow,No Straw, Small Bites and Sips,Alternate Liquids/Solids Mod Barium Swallow Impressions Summary and Impressions Oral Phase Impression Mild Impairment Oral Phase Summary Minimal to mild impairment of the oral phase 2' lack of dentition affecting Mr. Anderson's ability to masticate and manipulate solid bolus trials of both mechanical soft and regular solids. Limited tongue movement to assist oral transit of barium tablet was also observed and he required multiple subsequent sips of a solid to transfer bolus into the pharyngeal phase. No oral residual was noted across trials. Pharyngeal Phase Impression Moderate Impairment Pharyngeal Phase Summary Mild to moderate impairment of the pharyngeal phase of the swallow 2' premature spillage, A/P spills, mounika residuals in the vallecular space and reduced BOT movement. No s/sxs of aspiration observed throughout the instrumental, however residuals in the vallecular space may cause trace penetration and/or aspiration without implementation of compensatory strategies discussing with Mr Vidal Anderson who expressed understanding. At the start of the assessment, Mr. Anderson was given thin liquid bolus trials with open cup sips, two consecutive sips, and a straw sip. He was found to have poor control when presented with a straw sip bolus and began to cough/attempt to clear his throat 2' trace penetration. ASSURANCE SOURCING MANAGER educated him on taking smaller sips and avoiding straws moving forward , he expressed understanding. He was then given pudding and puree trials in which he required a double, effortful swallow with a chin tuck to clear residuals found in the valleculae. He was then given solid trials and he was observed to have a difficult time with masticating 2' poor dentition, however, residue in valleculae required a puree/ pudding wash to clear. ASSURANCE SOURCING MANAGER provided education on alternating between bites and sips, as well as use of puree/ pudding wash following every 2 -3 bites, Jeffery expressed understanding. Lastly, with the barium tablet, it became lodged in the vallecular spaces and required subsequent sips of a liquid as well as a throat clear in order to swallow. Pt was informed to cut larger pills in half as able, he expressed understanding. Speech/Language MBS Assessment/Goals/Plan Assessment Date of Evaluation: 04/06/23 Evaluation Type Initial Certification Assessment/Problems Dysphagia per MD order. Does Patient Qualify for Service No Qualify/Failure Comment Based on instrumental assessment, no further skilled speech therapy services are warranted at this time, so long as pt adheres to compensatory strategies, aspiration precautions, and recommended diet. Recommendations PHYSICIAN CERTIFICATION: The specified therapy services are required, authorized, and reviewed every 30 days. Diet Recommendations Mechanical Soft Liquid Type Recommendations Normal/Thin SL Swallow Guidelines Alt bite w/sip thru meal,High aspiration risk,Standard Aspiration Prec.,Eat at slow rate,Reflux precautions Dysphagia Swallow Precautions/Strategies Sitting Upright (90 deg),Chin Tuck,Double Swallow,No Straw, Small Bites and Sips,Alternate Liquids/Solids Place Food on Either side of Mouth Plan Pt/Guardian verbally ack understanding Yes of dx/prognosis/goals G -code Required No Education Instructions provided Discussed assessment results, diet recommendations, aspiration precautions, and compensatory strategies to use with patient who expressed understanding. ASSURANCE SOURCING MANAGER also provided walkthrough of educational handouts. Pt/Caregiver able to recall information Able to recall/restate Reinforcement needed No Mod Barium Swallow Setup Exam Setup Radiologist Cuong Farris Level of Consciousness Awake,Alert,Appropriate, Follows Commands Mod Barium Swallow-Lat View Textures Lateral View Food Presentation Thin Liquid via Cup,Thin Liquid via Straw,Pureed Food- Thin,Mech. Soft Food- Regular, Barium Tablet,Regular Food, Pudding Comment Mechanical soft: nutrigrain bar puree: applesauce regular: say cracker Oral Phase Labial Closure No Impairment (WFL) Bolus Formation Pooling L/R No Impairment (WFL) Bolus Formation under Tongue No Impairment (WFL) Bolus Formation Scattered Loss No Impairment (WFL) Mastication Rotary Chew Mild Impairment Mastication Munching Mild Impairment Mastication Lateralization Minimal Impairment Lingual Movement Mild Impairment Residue Clearing No Impairment (WFL) Pharyngeal Phase A/P Lingual Propulsion Spills Mild Impairment Swallow Response Delay Minimal Impairment Base of Tongue Moderate Impairment Epiglottic Coverage Minimal Impairment Laryngeal Elevation Minimal Impairment Vallecular Retention Clearing Moderate Impairment Pharyn. Wall Residue Clearing Minimal Impairment Piriform Sinus Retention Minimal Impairment Aspiration? No Silent aspiration? No Mod Barium Swallow-AP View Performed Mod Barium Swallow A/P View Test Not Applicable/Performed PHYSICIAN CERTIFICATION: I certify the specified therapy services for Jeffery Anderson are required, authorized, and reviewed every 30 days.
== END 2023-04-06 23:59 ==
LOC: RAD 10:41
PROVIDERS: PCP Physician Assistant; Visit Provider Physician Assistant
DX: R13.10 Dysphagia, unspecified (principal)
CPT/HCPCS: 70371; 92611

== ENCOUNTER 2023-05-19 13:58 | Outpatient (CLI) | payer MEDICARE, MEDICAID, SELFPAY ==
--- NOTE | 2023-05-19 14:02 | XR_ITS ---
FINAL REPORT CLINICAL HISTORY: cough FINDINGS: TWO-VIEW CHEST The heart size is normal. Patient is status post median sternotomy. The lungs are clear. There is no pneumothorax. IMPRESSION: No acute cardiopulmonary process. Reviewed, Interpreted and Dictated by Cuong Farris III, MD Transcribed by Analisa Bettencourt Authenticated and [facility]
== END 2023-05-19 23:59 ==
LOC: RAD 13:59
PROVIDERS: PCP Physician Assistant; Visit Provider Student in an Organized Health Care Education/Training Program
DX: R05.3 Chronic cough (principal); R09.89 Other specified symptoms and signs involving the circulatory and respiratory systems
CPT/HCPCS: 71046

== ENCOUNTER 2023-06-08 18:17 | Outpatient (CLI) | payer MEDICARE, MEDICAID, SELFPAY | END 2023-06-08 23:59 | LOC: LAB.DROPOF 18:18 | PROVIDERS: PCP Family Medicine; Visit Provider Family Medicine | DX: B37.0 Candidal stomatitis | CPT/HCPCS: 87070; 87102; 87206 ==

== ENCOUNTER 2023-06-27 18:57 | Outpatient (CLI) | payer MEDICARE, MEDICAID, SELFPAY ==
[2023-06-27 18:59] LABS: Basophils % 0.5 % (0.1-2.0); Eosinophils # 0.2 K/mm3 (0.0-0.4); Eosinophils % 2.2 % (0.1-12.0); Hematocrit 44.1 % (42.0-52.0); Hemoglobin 13.7 g/dL (14.1-18.0); Lymphocytes # 1.7 K/mm3 (0.7-4.5); Lymphocytes % 23.7 % (10-50); Mean Corpuscular HGB Conc 31.1 g/dL (31.8-35.4); Mean Corpuscular Hemoglobin 23.9 pg (27.0-31.2); Mean Corpuscular Volume 76.9 fl (80-94); Mean Platelet Volume 10.9 fl (7.4-10.4); Monocytes # 0.4 K/mm3 (0.1-1.0); Monocytes % 5.6 % (1.7-9.3); Neutrophils # 4.9 K/mm3 (1.8-7.8); Neutrophils % 68.1 % (37.0-80.0); Platelet Count 172 K/mm3 (142-424); Red Blood Count 5.73 M/mm3 (4.60-6.20); Red Cell Distribution Width 17.5 % (11.5-17.5); White Blood Count 7.1 K/mm3 (4.8-10.8)
[2023-06-27 19:23] LABS: Alanine Aminotransferase 20 U/L (12-78); Albumin Level 4.2 g/dl (3.5-5.0); Albumin/Globulin Ratio 1.7 (1.1-1.8); Alkaline Phosphatase 187 U/L (38-126); Anion Gap 12.2 mEq/L (5-15); Aspartate Amino Transferase 22 U/L (17-59); Bilirubin,Total 0.4 mg/dl (0.2-1.3); Blood Urea Nitrogen 17 mg/dl (9-20); Calcium 9.8 mg/dl (8.4-10.2); Carbon Dioxide 24 mmol/L (22.0-30.0); Chloride 108 mmol/L (98-107); Chol/HDL Ratio 4.7 (1-3.5); Cholesterol 127 mg/dl (140-200); Estimated Glomerular Filt Rate 47 ml/min (>60); GFR (African American) 57 ML/MIN (>60); Globulin 2.5 g/dL (1.3-3.2); HDL Cholesterol 27 mg/dl (40-60); Potassium 4.2 mmoL/L (3.5-5.1); Sodium 140 mmol/L (136-145); Total Protein,Serum 6.7 g/dl (6.3-8.2); Triglycerides 310 mg/dl (30-150); VLDL Cholesterol 62 mg/dL (0-40)
[2023-06-27 19:35] LABS: Direct LDL Cholesterol 58.99 mg/dL (100-129)
[2023-06-27 20:17] LABS: Vitamin B12 902 pg/mL (239-931)
[2023-06-27 20:37] LABS: Glucose 445 mg/dl (74-100)
== END 2023-06-27 23:59 ==
LOC: LAB.DROPOF 18:58
PROVIDERS: PCP Family Medicine; Visit Provider Family Medicine
DX: R53.83 Other fatigue (principal); E78.5 Hyperlipidemia, unspecified; E11.9 Type 2 diabetes mellitus without complications
CPT/HCPCS: 80053; 80061; 82607; 85025

== ENCOUNTER 2023-06-29 10:51 | Outpatient (CLI) | payer MEDICARE, MEDICAID, SELFPAY ==
--- NOTE | 2023-06-29 10:51 | CT_ITS ---
FINAL REPORT TECHNIQUE: Thin section axial images were obtained from the lung apices to the upper abdomen by computed tomography. Reformatted images were obtained and reviewed. This study was performed with techniques to keep radiation doses al low as reasonably achievable (ALARA). Individualized dose reduction techniques using automated exposure control or adjustment of mA and/or kV according to the patient's size were employed. CLINICAL HISTORY: lung cancer screening current smoker 1ppd x 53 years COMPARISON: None FINDINGS: CHEST CT LOW DOSE: 68-year-old male, current smoker, [id number] history. CTDI vol (mGy): 2.9 DLP (mGy-cm): 110.98 There is no axillary adenopathy. There is no mediastinal or hilar mass or adenopathy. The patient has undergone a prior midline sternotomy. The heart is normal in size. There is no pericardial or pleural effusion. Lung window images demonstrate a 3 mm nodule in the periphery of the left lower lobe best seen on image #50 of series 3. There are several small nodules in the periphery of the right upper lobe, some of which may be partially calcified, measuring up to 3 mm each. Limited images of the upper abdomen are unremarkable. IMPRESSION: Lung-RADS category 2. Recommend 12 month follow up low dose chest CT. Reviewed, Interpreted and Dictated by Jono Landeros MD Transcribed by Zoie Ivan Authenticated and . [facility]
== END 2023-06-29 23:59 ==
LOC: RAD 10:51
PROVIDERS: PCP Physician Assistant; Visit Provider Physician Assistant
DX: Z87.891 Personal history of nicotine dependence (principal)
CPT/HCPCS: 71271

== ENCOUNTER 2023-07-11 12:42 | Outpatient (CLI) | payer MEDICARE, MEDICAID, SELFPAY ==
[2023-07-11 20:30] LABS: Chloride 109 mmol/L (98-107); Potassium 4.6 mmoL/L (3.5-5.1); Sodium 141 mmol/L (136-145)
[2023-07-11 20:32] LABS: Blood Urea Nitrogen 14 mg/dl (9-20); Estimated Glomerular Filt Rate 61 ml/min (>60); GFR (African American) 73 ML/MIN (>60)
[2023-07-11 20:33] LABS: Alanine Aminotransferase 21 U/L (12-78); Albumin/Globulin Ratio 1.7 (1.1-1.8); Alkaline Phosphatase 138 U/L (38-126); Anion Gap 12.6 mEq/L (5-15); Aspartate Amino Transferase 25 U/L (17-59); Bilirubin,Total 0.3 mg/dl (0.2-1.3); Carbon Dioxide 24 mmol/L (22.0-30.0); Globulin 2.3 g/dL (1.3-3.2); Total Protein,Serum 6.3 g/dl (6.3-8.2)
[2023-07-11 20:34] LABS: Calcium 9.8 mg/dl (8.4-10.2); Glucose 180 mg/dl (74-100)
--- OUTSIDE RECORDS SUMMARY | 2023-07-13 12:45 | XMS_ITS ---
Author Name Leonard Betancur Address [address] [place] [address] Organization Unknown Address [address] [place] [id number] ALLERGIES AND ADVERSE REACTIONS No information ASSESSMENT No information CHIEF COMPLAINT No information MEDICATIONS No information OBJECTIVE DATA No information PHYSICAL EXAMINATION No information TREATMENT PLAN Planned Care Start Date Provider Encounter for Check-up [id number] [facility] PROBLEMS No information RESULTS No information REVIEW OF SYSTEMS No information SUBJECTIVE DATA No information VITAL SIGNS No information
== END 2023-07-11 23:59 ==
LOC: LAB.DROPOF 07-13 12:44
PROVIDERS: PCP Family Medicine; Visit Provider Family Medicine
DX: R53.83 Other fatigue (principal)
CPT/HCPCS: 80053

== ENCOUNTER 2023-11-25 08:15 | Outpatient (CLI) | payer MEDICARE, MEDICAID, SELFPAY ==
--- NOTE | 2023-11-25 08:20 | CA_ITS ---
APPROVED REPORT EXAM: Comprehensive 2D, Doppler, and color-flow Echocardiogram Conventional Underwriter: Vanesa Antony, REECE, RVS Ht: 6 ft 3 in Wt: 241lbs BSA: 2.38 BP: 167/88 mmHg Indications: CAD- CABG x3 -2022, Smoker, COPD, Pre-op, HTN, CP 2D Dimensions IVSd 1.10 cm M: 0.6-1.2 LVEF (Visual) 46.00 % LVDd 5.63 cm M: 4.2 - 5.9 LA Volume 102.40 mL LVDs 4.32 cm M: 2.5 - 4.0 LA Volume Index 43.03 mL/m2 (M/F) 16-34 Left Atrium 3.32 cm M: 3.0 - 4.0 M-Mode Dimensions RVDd 4.10 cm (0.9-2.6) LA Diam 4.57 cm (1.9-4.0) LVDd 4.98 cm (3.5-5.7) LVDs 3.99 cm (3.5-5.7) IVSd 1.44 cm (0.6-1.1) PWd 1.29 cm (0.6-1.1) EF (Teich) 40.60% EPSs 1.68 cm FS 19.90% EDV (Teich) 117.10 mL TAPSE 1.41 (<1.7) ESV (Teich) 69.60 mL LV Diastology E Decel Time 300 (160-240 msec) E/A Ratio 0.79 MED A' 7.00 cm/s LAT A' 8.30 cm/s Aortic Valve LUIS Index 1.22 cm2/m2 AoV Peak David. 138.0 (50-130 cm/s) AO Peak GR. 7.60 mmHg AO Mean GR. 3.80 (<5 mmHg) AO VTI 30.3 (18-25 cm) LUIS (VTI) 2.97 (2.5-4.5 cm2) Mitral Valve MV A Velocity 116.0 (40-130 cm/s) E/A Ratio 0.79 MV Mean Gr. 2.90 (<2mmHg) Pulmonary Valve PV Peak Velocity 108.0 (50-150 cm/s) CA End VMAX 193.0 cm/s Tricuspid Valve TR P. Velocity 251.00 cm/s Left Ventricle The left ventricle is mildly dilated. The left ventricular systolic function is mildly reduced. There is increased LV wall thickness. Mild global hypokinesis is present. Grade 1 diastolic dysfunction is present. LVEF is 40-45%. Right Ventricle The right ventricle is normal size. Right ventricle is mildly hypokinetic. Atria The left atrium is moderately dilated. The right atrium size is normal. There is no Doppler evidence of interatrial shunt. Aortic Valve The aortic valve opens well. There is no aortic valvular stenosis. No aortic regurgitation is present. Mitral Valve The mitral valve is normal in structure. No evidence of mitral valve stenosis. Mild mitral regurgitation. Tricuspid Valve The tricuspid valve leaflets are thin and pliable. Trace tricuspid regurgitation. RVSP is 20-25 mmHg. Pulmonic Valve The pulmonary valve is normal in structure. Mild pulmonic regurgitation. Great Vessels The aortic root is normal in size. The ascending aorta is normal in size. IVC is normal in size and collapses >50% with inspiration. Pericardium There is no pericardial effusion. Other Information Study Quality: Fair Conclusion Mild LV dilation with mild reduction in LV systolic function (LVEF 40-45%). Normal RV size mild reduction in RV function. Left atrial dilation. Mild MR, mild PI. Electronically signed by : Abida Cesar MD 11/30/2023 12:55:50
== END 2023-11-25 23:59 | disposition home or self-care (01) ==
LOC: RT 08:16
PROVIDERS: PCP Family Medicine; Visit Provider Physician Assistant
DX: Z01.810 Encounter for preprocedural cardiovascular examination (principal); I51.7 Cardiomegaly
CPT/HCPCS: 93306

== ENCOUNTER 2024-05-02 09:02 | Outpatient (CLI) | payer MEDICARE, MEDICAID, SELFPAY ==
[2024-05-02 17:59] LABS: Basophils # 0.1 K/mm3 (0-0.2); Basophils % 0.8 % (0.1-2.0); Eosinophils # 0.2 K/mm3 (0.0-0.4); Eosinophils % 2.2 % (0.1-12.0); Hemoglobin 13.5 g/dL (14.1-18.0); Lymphocytes # 1.8 K/mm3 (0.7-4.5); Lymphocytes % 19.7 % (10-50); Mean Corpuscular HGB Conc 28.7 g/dL (31.8-35.4); Monocytes # 0.6 K/mm3 (0.1-1.0); Monocytes % 6.7 % (1.7-9.3); Neutrophils # 6.3 K/mm3 (1.8-7.8); Neutrophils % 69.9 % (37.0-80.0); Platelet Count 232 K/mm3 (142-424); Red Blood Count 6.44 M/mm3 (4.60-6.20); Red Cell Distribution Width 19.5 % (11.5-17.5)
[2024-05-02 18:32] LABS: Hemoglobin A1C 7.5 % (4.0-6.0)
[2024-05-02 18:36] LABS: 25-OH Vitamin D, Total 42.5 ng/mL (30-100)
[2024-05-02 18:39] LABS: Alanine Aminotransferase 18 U/L (12-78); Albumin Level 4.2 g/dl (3.5-5.0); Albumin/Globulin Ratio 1.8 (1.1-1.8); Alkaline Phosphatase 142 U/L (38-126); Anion Gap 17.2 mEq/L (5-15); Aspartate Amino Transferase 22 U/L (17-59); Bilirubin,Total 0.4 mg/dl (0.2-1.3); Blood Urea Nitrogen 20 mg/dl (9-20); Calcium 9.7 mg/dl (8.4-10.2); Carbon Dioxide 23 mmol/L (22.0-30.0); Chloride 108 mmol/L (98-107); Chol/HDL Ratio 6.3 (1-3.5); Cholesterol 158 mg/dl (140-200); Estimated Glomerular Filt Rate 43 ml/min (>60); GFR (African American) 52 ML/MIN (>60); Globulin 2.3 g/dL (1.3-3.2); Glucose 267 mg/dl (74-100); HDL Cholesterol 25 mg/dl (40-60); Potassium 4.2 mmoL/L (3.5-5.1); Sodium 144 mmol/L (136-145); Total Protein,Serum 6.5 g/dl (6.3-8.2); Triglycerides 157 mg/dl (30-150); VLDL Cholesterol 31 mg/dL (0-40)
[2024-05-02 18:52] LABS: Direct LDL Cholesterol 113.02 mg/dL (100-129)
[2024-05-02 19:11] LABS: Prostate Specific Ag Screen 1.1 ng/ml (0.0-4.0); Thyroid Stimulating Hormone 1.15 uIU/mL (0.465-4.68)
[2024-05-04 12:35] LABS: Iron 45 ug/dL (49-181)
[2024-05-04 12:45] LABS: Total Iron Binding Capacity 392 ug/dL (261-462)
== END 2024-05-02 23:59 | disposition home or self-care (01) ==
LOC: LAB.DROPOF 05-03 09:03
PROVIDERS: PCP Family Medicine; Visit Provider Family Medicine
DX: E11.9 Type 2 diabetes mellitus without complications (principal); I10 Essential (primary) hypertension; E78.2 Mixed hyperlipidemia; Z12.5 Encounter for screening for malignant neoplasm of prostate; E55.9 Vitamin D deficiency, unspecified; D50.9 Iron deficiency anemia, unspecified
CPT/HCPCS: 80053; 80061; 82306; 83036; 83540; 83550; 84443; 85025; G0103

== ENCOUNTER 2024-05-11 09:24 | Outpatient (CLI) | payer MEDICARE, MEDICAID, SELFPAY ==
[2024-05-11 09:49] LABS: Basophils # 0.1 K/mm3 (0-0.2); Basophils % 0.5 % (0.1-2.0); Eosinophils # 0.3 K/mm3 (0.0-0.4); Eosinophils % 2.5 % (0.1-12.0); Hematocrit 44.4 % (42.0-52.0); Hemoglobin 13.1 g/dL (14.1-18.0); Lymphocytes # 2.1 K/mm3 (0.7-4.5); Lymphocytes % 19.9 % (10-50); Mean Corpuscular HGB Conc 29.5 g/dL (31.8-35.4); Mean Corpuscular Hemoglobin 21.5 pg (27.0-31.2); Mean Corpuscular Volume 72.9 fl (80-94); Monocytes # 0.9 K/mm3 (0.1-1.0); Monocytes % 8.2 % (1.7-9.3); Neutrophils # 7.3 K/mm3 (1.8-7.8); Neutrophils % 68.4 % (37.0-80.0); Platelet Count 203 K/mm3 (142-424); Red Blood Count 6.09 M/mm3 (4.60-6.20); Red Cell Distribution Width 19.8 % (11.5-17.5); White Blood Count 10.7 K/mm3 (4.8-10.8)
[2024-05-11 09:55] LABS: Chloride 112 mmol/L (98-107); Potassium 3.8 mmoL/L (3.5-5.1); Sodium 143 mmol/L (136-145)
[2024-05-11 09:58] LABS: Anion Gap 11.8 mEq/L (5-15); Blood Urea Nitrogen 18 mg/dl (9-20); Calcium 9.2 mg/dl (8.4-10.2); Carbon Dioxide 23 mmol/L (22.0-30.0); Estimated Glomerular Filt Rate 51 ml/min (>60); GFR (African American) 61 ML/MIN (>60); Glucose 250 mg/dl (74-100)
== END 2024-05-11 23:59 | disposition home or self-care (01) ==
LOC: PREOP 09:25
PROVIDERS: PCP Family Medicine; Visit Provider Surgery
DX: D04.9 Carcinoma in situ of skin, unspecified (principal)
CPT/HCPCS: 80048; 85025

== ENCOUNTER 2024-05-17 05:41 | Day surgery (SDC) | payer MEDICARE, MEDICAID, SELFPAY ==
[2024-05-11 10:56] VITALS: BMI 30.4
[2024-05-17] VITALS (11 sets, daily range): BP systolic 148–186; BP diastolic 88–96; PULSE 74–80; RESP 18–24; TEMP 36.3–37; O2SAT 91–98
--- NOTE | 2024-05-17 06:59 | P.PNANES_ITS ---
[facility] Disclaimer: The information contained in this section may have been updated after the patient was seen, as this information can be updated by other users. Medical History Iron deficiency anemia Encounter for pre-operative cardiovascular clearance Coronary artery disease Cough Sinusitis Pharyngitis Basal cell carcinoma Systolic heart failure Renal mass Tobacco use Atypical angina SOB (shortness of breath) on exertion LV dysfunction Abnormal echocardiogram Hyperlipidemia Malignant hypertension Abnormal electrocardiogram [ECG] [EKG] Skin lesion of left arm History of vertebral artery stenosis Vertebral artery stenosis with cerebral infarction within last 8 weeks TIA (transient ischemic attack) Anxiety Hypertension Neuropathy CAD (coronary artery disease) Surgical History History of excision of lesion History of heart bypass surgery History of colonoscopy History of renal stent Family History Other Family history of cancer Family history of myocardial infarction Social History (Updated 05/17/24 @ 06:29 by Adalgisa Jenkins RN) Smoking Status: Current every day smoker tobacco type: cigarettes packs per day: 1 alcohol intake: current alcohol intake frequency: holidays/special occasions only substance use type: marijuana current occupational status: retired Travel in the last 8 weeks: None caffeine: Yes Have you lived/traveled outside US in past 30 days?: No Contact w/someone who lives/traveled outside US past 30 days?: No Exposure to someone with infectious disease in past 14 days?: No Do you have a fever (greater than 100.4 F or 38 C)?: No Have you tested positive for COVID-19: Yes Exposed to someone with COVID-19 in past 14 days?: No Do you have a sore throat?: No Do you have a cough?: No Do you have any weakness?: No Are you experiencing any nausea/vomitting?: No Do you have any diarrhea?: No Are you experiencing any unusual bleeding?: No Do you have any muscle aches/pain?: No Do you have any abdominal pain?: No Are you experiencing loss of taste or smell?: No [facility] Anesthesia Checklist Patient Identification Patient Identification: Arm Band and Family Structural Data Admitted From: Home Planned Operative Procedure/s: Excision lesion left face and two lesions left hand. Consent for Planned Operative Procedure(s) Verified: Yes Verified Documents: Surgical Consent and History and Physical NPO Status Verified Time NPO: 00:00 Additional verifications Patient : No Anesthesia Reactions: No Hx Blood Transfusions: No Blood Transfusion Reaction: No Cephalosporin Allergy: No Previous Colonoscopy: Yes Airway Assessment Mallampati Score:: Class II C-Spine Mobility Assessed: Yes TMJ Mobility Assessed: Yes Dentition: Good Dentition Neurological Assessment Level of Consciousness: Awake, Alert, Appropriate and Follows Commands Hx Seizures: No Numbness or tingling in extremities: No Anesthesia Plan Anesthesia Risk discussed: Yes ASA Class: III Anesthesia Type: General Preoperative Comments Pre-Operative Comments: History CABG plus stents. Hypertension. NIDDM. Stents kidney.
[2024-05-17] MEDS: BACITRACIN ZINC OINT 30GM TUBE 28 GM TP (07:30)
[2024-05-17] MEDS: LIDOCAINE 1% 20ML MDV 20 ML (07:30)
--- NOTE | 2024-05-17 08:28 | EXP.OP.NOTE ---
Date of procedure: 05/17/24 Pre-op Diagnosis:: Left facial cheek skin lesion (2.5 cm) Left hand skin lesion?dorsal thenar (1 cm) Left hand skin lesion?dorsal index finger (1.5 cm) Post-op Diagnosis:: Same Procedure performed:: Excision of: Left facial cheek skin lesion (2.5 cm) Left hand skin lesion?dorsal thenar (1 cm) Left hand skin lesion?dorsal index finger (1.5 cm) Surgeon:: Arnol Manuel MD REPORT CHECKER:: Jeffery Cabral Anesthesia: local and LMA Estimated blood loss (mL): 15 Operative findings:: All lesions excised in toto Operative note:: After informed consent was obtained the patient was taken to the operating room and placed in the right lateral decubitus position. General anesthesia with laryngeal mask airway was achieved. His left hand and left facial cheek were prepped and draped in a sterile fashion. After infiltration local anesthetic an elliptical incision was made around the dorsal thenar 1 cm lesion. Lesion was excised utilizing sharp dissection and electrocautery. The excision was taken into the deeper subcutaneous tissue. The lesion was excised in toto and passed off for pathologic evaluation after being marked for margin (short proximal/long lateral). The 1.5 cm dorsal surface proximal index finger region was excised in a similar manner. Both incisions were closed with interrupted 4-0 nylon in a mattress fashion. Attention was then turned to the left facial cheek lesion. The cheek lesion was carefully elevated and excised with scalpel. The lesion was excised in toto and passed off for pathologic evaluation. Electrocautery was utilized to achieve hemostasis and skin was reapproximated with 5-0 nylon. Condition: stable Disposition: PACU Specimens:: Left facial cheek skin lesion (2.5 cm) Left hand skin lesion?dorsal thenar (1 cm) Left hand skin lesion?dorsal index finger (1.5 cm) Complications:: No immediate
--- NOTE | 2024-05-17 08:51 | P.PNANES_ITS ---
[facility] Anesthesia Record Part I Anesthesia Record I Intake, IV Amount: 850 Hydration: Adequate Estimated blood loss (mL): 5 Urine output (mL): 0 Blood Pressure: 148/88 SaO2: 92 Pulse Rate: 75 Airway Patency: Patent Respiratory Rate: 24 Temperature: 98.6 F Patient is:: Drowsy and Stable Stable to PACU at:: 08:40
--- NOTE | 2024-05-17 12:06 | EXP.ANES.II ---
[facility] Anesthesia Record Part II Anesthesia Record Part II Discharge Time: 09:20 Destination: Surgical Day Care (OP Surgery) PACU nurse assessment reviewed?: Yes Patient Condition:: Good Anesthesia Complications:: None Swallowing reflex intact?: Yes Airway Patency: Patent Cyanosis?: No Blood Pressure: 160/92 SaO2: 95 Respiratory Rate: 20 Pulse Rate: 79 Temperature: 97.3 F Mental Status: Alert & Oriented Pain level:: 0 Nausea and/or vomitting:: None Intake, IV Amount: 0 Hydration: Adequate
== END 2024-05-17 09:52 | disposition home or self-care (01) ==
PROVIDERS: PCP Family Medicine; Visit Provider Surgery
PROC: (CPT 11621; principal; 2024-05-17 07:30)
DX: C44.329 Squamous cell carcinoma of skin of other parts of face (principal); C44.629 Squamous cell carcinoma of skin of left upper limb, including shoulder; L57.0 Actinic keratosis
CPT/HCPCS: 11621; 11622; 11643; J1100; J2250; J2405; J3010

== ENCOUNTER 2024-08-01 08:52 | Outpatient (CLI) | payer MEDICARE, MEDICAID, SELFPAY ==
[2024-08-01 19:06] LABS: Basophils % 0.5 % (0.1-2.0); Eosinophils # 0.1 Kmm3 (0.0-0.4); Eosinophils % 1.9 % (0.1-12.0); Hematocrit 54.1 % (42.0-52.0); Hemoglobin 16.7 g/dL (14.1-18.0); Lymphocytes # 1.6 K/mm3 (0.7-4.5); Lymphocytes % 21.5 % (10-50); Mean Corpuscular HGB Conc 30.9 g/dL (31.8-35.4); Mean Corpuscular Hemoglobin 25.4 pg (27.0-31.2); Mean Corpuscular Volume 82.2 fl (80-94); Mean Platelet Volume 10.8 fl (7.4-10.4); Monocytes # 0.7 K/mm3 (0.1-1.0); Monocytes % 8.7 % (1.7-9.3); Neutrophils % 66.9 % (37.0-80.0); Nucleated Red Blood Cells # 0 10^3/uL; Nucleated Red Blood Cells % 0 %; Platelet Count 188 K/mm3 (142-424); Red Blood Count 6.58 M/mm3 (4.60-6.20); Red Cell Distribution Width 19.8 % (11.5-17.5); Red Cell Distribution Width-SD 56.4 fL; White Blood Count 7.4 K/mm3 (4.8-10.8)
[2024-08-01 19:11] LABS: Hemoglobin A1C 7.6 % (4.0-6.0)
[2024-08-01 20:13] LABS: Iron 139 ug/dL (49-181)
[2024-08-01 20:23] LABS: Total Iron Binding Capacity 356 ug/dL (261-462)
[2024-08-01 20:49] LABS: Ferritin 29.7 ng/ml (17.9-464)
== END 2024-08-01 23:59 | disposition home or self-care (01) ==
LOC: LAB.DROPOF 08-03 08:53
PROVIDERS: PCP Family Medicine; Visit Provider Family Medicine
DX: D50.9 Iron deficiency anemia, unspecified (principal); E11.9 Type 2 diabetes mellitus without complications; Z79.85 Long-term (current) use of injectable non-insulin antidiabetic drugs
CPT/HCPCS: 82728; 83036; 83540; 83550; 85025

== ENCOUNTER 2024-10-08 11:35 | Outpatient (CLI) | payer MEDICARE, MEDICAID, SELFPAY ==
[2024-10-08 19:34] LABS: Hematocrit 54.2 % (42.0-52.0); Hemoglobin 17.0 g/dL (14.1-18.0); Immature Granulocytes % 0.7 %; Mean Corpuscular HGB Conc 31.4 g/dL (31.8-35.4); Mean Corpuscular Hemoglobin 27.3 pg (27.0-31.2); Mean Corpuscular Volume 87.1 fl (80-94); Nucleated Red Blood Cells % 0 %; Platelet Count 160 K/mm3 (142-424); Red Blood Count 6.22 M/mm3 (4.60-6.20); Red Cell Distribution Width-SD 48.4 fL; White Blood Count 10.7 K/mm3 (4.8-10.8)
[2024-10-08 20:11] LABS: Alanine Aminotransferase 13 U/L (12-78); Albumin Level 4.2 g/dl (3.5-5.0); Albumin/Globulin Ratio 1.6 (1.1-1.8); Alkaline Phosphatase 135 U/L (38-126); Anion Gap 19.4 mEq/L (5-15); Aspartate Amino Transferase 19 U/L (17-59); Bilirubin,Total 0.7 mg/dl (0.2-1.3); Blood Urea Nitrogen 16 mg/dl (9-20); Calcium 8.7 mg/dl (8.4-10.2); Carbon Dioxide 25 mmol/L (22.0-30.0); Chloride 106 mmol/L (98-107); Creatinine,Serum 1.40 mg/dl (0.66-1.25); Estimated Glomerular Filt Rate 51 ml/min (>60); GFR (African American) 61 ML/MIN (>60); Globulin 2.7 g/dL (1.3-3.2); Glucose 97 mg/dl (74-100); Iron 97 ug/dL (49-181); Potassium 4.4 mmoL/L (3.5-5.1); Sodium 146 mmol/L (136-145); Total Protein,Serum 6.9 g/dl (6.3-8.2)
[2024-10-08 21:34] LABS: Hemoglobin A1C 8.6 % (4.0-6.0)
[2024-10-08 23:44] LABS: Total Iron Binding Capacity 313 ug/dL (261-462)
[2024-10-09 00:11] LABS: Ferritin 57.4 ng/ml (17.9-464)
--- OUTSIDE RECORDS SUMMARY | 2024-10-09 07:41 | XMS_ITS | Encounter Summary ---
Author Organization Healthcare Address [address] [place] [address] Care Team Providers Care Accounting Professor Name Role Phone Sarai Centeno Primary Care Provider [phone] Bola Rodriguez MD Unavailable [phone] Encounter Details Date Type Department Care Team (Late Contact Info) Description 10/06/2022 Orders Only External Location [address] [place] [id number] Provider, External Social History Tobacco Use Types Packs/Day Years Used Date Smoking Tobacco: Every Day Alcohol Use Standard Drinks/Week Comments Yes 0 (1 standard drink = 0.6 oz pure alcohol) Alcoholic Drinks/day: Occasional alcohol use Sex and Gender Information Value Date Recorded Sex Assigned at Not on file Legal Sex Male 7:31 PM EDT Gender Identity Not on file Sexual Orientation Not on file documented as of this encounter Plan of Treatment Upcoming Encounters Date Type Department Care Team (Late Contact Info) Description 10/26/2024 10:00 AM EDT Office Visit [facility] [address] [place] [address] Yoana Monet, INGOT WEIGHER [address] [address] documented as of this encounter Procedures Procedure Name Priority Date/Time Associated Diagnosis Comments IR CHEST OUTSIDE IMAGES 10/06/2022 7:45 AM EDT documented in this encounter Results * IR CHEST OUTSIDE IMAGES (10/06/2022 7:45 AM EDT) Anatomical Region Laterality Modality X-Ray Angiograph y 10/06/2022 7:45 AM EDT us External Provider IMG IR PROCEDURES Final Result documented in this encounter Visit Diagnoses Not on filedocumented in this encounter Additional Health Concerns Infection Onset Date Last Indicated Resolved Time MRSA 10/04/2022 10/04/2022 documented as of this encounter Care Teams Accounting Professor Relationship Specialty Start Date End Date Sarai Centeno PA [address] [place] [address] PCP - General 10/27/22 Bola Rodriguez MD [address] [id number] Referring Physician Cardiology 10/27/22 documented as of this encounter
--- OUTSIDE RECORDS SUMMARY | 2024-10-09 07:41 | XMS_ITS | Clinical Summary ---
Author Organization [facility] Address [address] [place] [address] Care Team Providers Care Adoption Coordinator Name Role Phone Sarai Centeno Primary Care Provider [phone] Bola Rodriguez MD Unavailable [phone] Allergies Active Allergy Reactions Criticality Noted Date Comments Amlodipine Dizziness Low 10/27/2022 Medications Ventolin HFA 108 (90 Base) MCG/ACT inhaler Inhale 1 puff every 6 (six) hours if needed. 3 Active Eliquis 5 MG tablet Take 1 tablet (5 mg) by mouth 2 (two) times a day. 3 Active carvedilol (Coreg) 25 MG tablet Take 1 tablet (25 mg) by mouth 2 (two) times a day. 3 Active cetirizine (ZyrTEC) 10 MG tablet Take 1 tablet (10 mg) by mouth every night. 6 Active clopidogrel (Plavix) 75 MG tablet Take 1 tablet (75 mg) by mouth 1 (one) time each day. 3 Active ergocalciferol 1.25 MG (55509 UT) capsule Take 1 capsule (50,000 Units) by mouth 1 (one) time per week. 3 Active omeprazole (PriLOSEC) [address] capsule Take 1 capsule (20 mg) by mouth 1 (one) time each day in the evening. Do not crush or chew. Active acetaminophen (Tylenol) 325 MG tablet Take 2 tablets (650 mg) by mouth every 4 (four) hours if needed for pain. 100 tablet Active docusate sodium 100 MG capsule Take 100 mg by mouth 2 (two) times a day if needed for constipation. 20 capsule Active Additional Information Patient not taking.Reported on 12/24/2022 semaglutide (Ozempic, 0.25 or 0.5 MG/DOSE,) 2 MG/1.5ML solution pen-injector inj. pen Inject 0.1875 mL (0.25 mg) under the skin 1 (one) time per week. Active empagliflozin (Jardiance) 10 MG Take 1 tablet (10 mg) by mouth 1 (one) time each day. Active ezetimibe (Zetia) 10 MG tablet Take 1 tablet (10 mg) by mouth 1 (one) time each day. Active losartan (Cozaar) 50 MG tablet Take 1 tablet (50 mg) by mouth 1 (one) time each day. Active Active Problems Problem Noted Date Diagnosed Date Acute blood loss as cause of postoperative anemi a 12/05/2022 Postoperative atrial fibrillation 12/05/2022 Vertebral artery stenosis 12/05/2022 Tobacco abuse 12/05/2022 Renal artery stenosis 12/01/2022 CAD in [place] artery 11/30/2022 Overweight (BMI 25.0-29.9) 10/28/2022 TAMMI (obstructive sleep apnea) 10/28/2022 Overview (10/28/2022): Non-compliant with c-pap Coronary artery disease 10/27/2022 Peripheral arterial disease 10/27/2022 Peripheral neuropathy 10/27/2022 Renal mass 10/27/2022 Left ventricular dysfunction 10/27/2022 Hyperlipidemia 10/27/2022 Type 2 diabetes mellitus wit h chronic kidney disease, without long-term current use of insulin 10/27/2022 GERD (gastroesophageal reflux disease) Chronic systolic heart failure 10/27/2022 CKD (chronic kidney disease) 09/25/2020 Marijuana use 09/25/2020 10/27/2022 Poor dentition 09/25/2020 10/27/2022 Chronic pain 08/21/2020 10/27/2022 COPD (chronic obstructive pulmonary disease) 10/27/2022 Carotid artery stenosis, asymptomatic 09/14/2018 10/27/2022 Hypertension 05/21/2016 10/27/2022 Resolved Problems Problem Noted Date Diagnosed Date Resolved Date Cardiac volume overload 11/30/2022 09/0 06/2022 Overview (11/30/2022): - S/p CABG w/ Dr. Tenorio on 11/30 - Will monitor and diurese as appropriate Electrolyte abnormality 11/30/2022 09/0 06/2022 Overview (11/30/2022): - S/p CABG w/ Dr. Tenorio on 11/30 - Will monitor and correct as necessary Acute respiratory failure with hypoxia 11/30/2022 12/05/2022 Overview (12/01/2022): - S/p CABG w/ Dr. Tenorio on 11/30 - Arrived to ICU intubated and mechanically ventilated on FiO2 50% - Plan to reverse and extubate per fast track protocol - On RA Anxiety 10/27/2022 11/30/2022 CVA (cerebral vascular accident) 12/27/2020 10/28/1912/05/2022 Overview (11/30/2022): - Hx of CVA 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 09/04/2020 10/27/2022 10/27/2022 Acute kidney injury superimp osed on chronic kidney disease 08/21/2020 10/27/2022 10/27/2022 Malignant melanoma of skin 03/04/2016 10/27/2022 0 11/25/2022 Encounters Date Type Department Care Team Description 09/24/2024 Orders Only [facility] [address] [place] [address] Charleen Mayfield Chronic kidney disease, unspecified CKD stage (Primary Dx); Hypertension, unspecified type; Vitamin D insufficiency from Last 3 Months Immunizations Immunization Administration Dates Next Due TD (adult), 2 Lf tetanus tox oid, preservative free, adsorbed 06/06/1996 Family History Medical History Relation Name Comments Cardiac disorder Father Diabetes Mother Colon cancer Other 1 Cardiac disorder Other 2 Stroke Other 3 Thyroid cancer Other 4 Heart attack Other 5 Stroke Sister Anesthesia problems Neg Hx Malig Hyperthermia Neg Hx Relation Name Status Comments Father Mother Other 1 Other 2 Other 3 Other 4 Other 5 Sister Social History Tobacco Use Types Packs/Day Years Used Date Smoking Tobacco: Every Day Cigarettes 1 53 Passive Smoke Exposure: Current Smokeless Tobacco: Former Tobacco Cessation:Ready to Q uit: Yes; Counseling Given: Yes Comments:Has cut down to 1/2 ppd Alcohol Use Standard Drinks/Week Comments Not Currently 0 (1 standard drink = 0.6 oz pur e alcohol) Occasional alcohol use Sex and Gender Information Value Date Recorded Sex Assigned at Not on file Legal Sex Male 7:31 PM EDT Gender Identity Not on file Sexual Orientation Not on file 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 Not on file Not on file Last Filed Vital Signs Vital Sign Reading Time Taken Comments Blood Pressure 166/100 07/28/2023 8:58 AM EDT Pulse 98 07/28/2023 8:51 AM EDT Temperature 36.6 C (97.9 F) 12/24/2022 9:57 AM EDT Respiratory Rate 16 12/05/2022 11:25 AM EDT Oxygen Saturation 97% 12/24/2022 9:57 AM EDT Inhaled Oxygen Concentration - - Weight 109 kg (241 lb 6.4 oz) 07/28/2023 8:51 AM EDT Height 190.5 cm (6' 3 ) 07/28/2023 8:51 AM EDT Body Mass Index 30.17 07/28/2023 8:51 AM EDT Plan of Treatment Upcoming Encounters Date Type Department Care Team (Late st Contact Info) Description 10/26/2024 10:00 AM EDT Office Visit [facility] [address] [place] [address] Yoana Monet, FLACO [address] [address] Health Maintenance Due Date Last Done Comments [facility]-Depression Screening 1957 [facility]-Medicare Annual Wellness (AWV) 1955 [facility]-Infant/Child/Adol SDOH Screenings 1957 Diabetes: Dental Exam 1967 [facility]- SDOH Screenings 1975 [facility]-Adult SDOH Screenings 1975 [facility]-Pneumococcal Vaccine: 50+ Years (1 of 2 - PCV) 02/04/1976 [facility]-DTaP,Tdap,and Td Vaccines (1 - Tdap) 06/07/1996 06/06/1996 CT Colonography 2002 Colonoscopy 2002 FIT-DNA 2002 FIT 2002 FOBT 2002 Sigmoidoscopy 2002 [facility]-Colorectal Cancer Screening 2002 [facility]-Zoster Vaccines (1 of 2) 2007 [facility]-RSV Vaccine: 60+ Years or (1 - Risk 60-74 years 1-dose series) 2017 [facility]-Diabetes: Hemoglobin A1C 01/27/2023 10/28/2022, 12/28/2020, 09/25/2020, Additional history exists [id number]-[id number]-80 Vaccine ( - 2023- season) 2023 [facility]-Influenza Vaccine (#1) 2024 [facility]-Lung Cancer Screening Discontinued 11/17/2010 [facility]-Hepatitis C Screening Completed 09/10/2018 [facility]-Obesity Intervention Completed 024, 12/24/2022, 11/25/2022, Additional history exists HPV Vaccines Aged Out No longer eligi ble based on patient's age to complete this topic [facility]-HIB Vaccines Aged Out No longer e ligible based on patient's age to complete this topic [facility]-Hepatitis A Vaccines Aged Out No longer eligible based on patient's age to complete this topic [facility]-IPV Vaccines Aged Out No longer e ligible based on patient's age to complete this topic [facility]-Rotavirus Vaccines Aged Out No lo nger eligible based on patient's age to complete this topic Procedures Procedure Name Priority Date/Time Associated Diagnosis Comments HEMOGLOBIN A1C Routine 10/28/2022 11:46 AM EDT Coronary artery disease, unspecified vessel or lesion type, unspecified whether angina present, unspecified whether [place] or transplanted heart Prediabetes HEPATITIS C ANTIBODY - ED W/REFLEX TO HCV QUANT PCR Routine 09/10/2018 5:[address] CHEST WO IV CONTRAST 11/17/2010 5:23 PM EDT from Last 3 Months or Most Recently Relevant to Health Maintenance Results * (ABNORMAL) Hemoglobin A1c (10/28/2022 11:46 AM EDT) Hemoglobin A1c 7.0(H) <5.7 % 10/28/2022 1:39 PM EDT [facility] Blood Venous blood specimen / Unknown Venipuncture / Unknown 10/28/2022 11:46 AM EDT 10/28/2022 11:46 AM EDT Narrative [facility] - 10/28/2022 1:39 PM EDT HA1C Interpretive Data: Diagnosis of Diabetes: Diabetic > or = 6.5% Pre-diabetic 5.7 to 6.4% Non-diabetic < or = 5.6% Glycemic Targets for Type I and Type II Diabetics: Non- Adults <7.0% Adults <6.0% Children and Adolescents <7.5% Source: [place] [employer]. Standards of medical care in diabetes,2017. Diabetes Care.2017:40 (suppl 1):S1-S135. HbA1c assay performed by an ion-exchange chromatography method that is certified traceable to the DCCT. us Angel Tenorio MD LAB BLOOD ORDERABLES Final R esult Performing Organization Address City/[facility]/ZIP Co de Phone Number [facility] [address] [place] [address] * [place] Hepatitis C Antibody (09/10/2018 5:13 PM EDT) [place] Hepatitis C Ab NEGATIVE Reference Range: Negative [facility] 09/10/2018 5:13 PM EDT 09/10/2018 5:18 PM EDT us Ervin Alfonso MD LAB BLOOD ORDERABLES Final Result Performing Organization Address City/[facility]/ZIP Co de Phone Number [facility] * CT Chest wo IV Contrast (11/17/2010 5:23 PM EDT) Anatomical Region Laterality Modality Chest Computed Tomogra phy 11/17/2010 5:23 PM EDT us External Provider IMG CT PROCEDURES Final Result from Last 3 Months or Most Recently Relevant to Health Maintenance Additional Health Concerns Infection Onset Date Last Indicated MRSA 10/04/2022 10/04/[address] [place] [address] MEDICAID [facility] MEDICARE Advance Directives * Full Code (Latest Code Status on File) Date Activated Date Inactivated Comments 11/30/2022 4:25 PM 12/05/2022 6:11 PM Question Answer Comments Patient has decision-making capacity? Yes Care Teams Adoption Coordinator Relationship Specialty Start Date End Date Sarai Centeno PA [address] [place] [address] PCP - General 10/27/22 Bola Rodriguez MD [address] [address] Referring Physician Cardiology 10/27/22
--- OUTSIDE RECORDS SUMMARY | 2024-10-09 07:41 | XMS_ITS | Encounter Summary ---
Author Organization Healthcare Address [address] [place] [address] Care Team Providers Care Pressure Tester Name Role Phone Sarai Centeno Primary Care Provider [phone] Bola Rodriguez MD Unavailable [phone] Encounter Details Date Type Department Care Team (Late st Contact Info) Description 09/24/2024 Orders Only [facility] [address] [place] [address] Charleen Mayfield Chronic kidney disease, unspecified CKD stage (Primary Dx); Hypertension, unspecified type; Vitamin D insufficiency Social History Tobacco Use Types Packs/Day Years Used Date Smoking Tobacco: Every Day Cigarettes 1 53 Passive Smoke Exposure: Current Smokeless Tobacco: Former Comments:Has cut down to 1/2 ppd Alcohol [...] file Not on file Not on file documented as of this encounter Functional Status * Are you deaf or do you have serious difficulty hearing? Answer Date of Assessment Author No 12/05/2022 1:12 PM Myles Dobbins RN * Are you blind or do you have serious difficulty seeing, even when wearing glasses? Answer Date of Assessment Author No 12/05/2022 1:12 PM Myles Dobbins RN * Do you have serious difficulty walking or climbing stairs? Answer Date of Assessment Author No 12/05/2022 1:12 PM EDT Myles Vargas RN * Do you have serious difficulty dressing or bathing? Answer Date of Assessment Author No 12/05/2022 1:12 PM EDT Myles Vargas RN * Because of a physical, mental, or emotional condition, do you have serious difficulty doing errandsalone such as visiting the doctor? Answer Date of Assessment Author No 12/05/2022 1:12 PM EDMyles Jeter RN documented as of this encounter Mental Status * Because of a physical, mental, or emotional condition, do you have serious difficulty concentrating, remembering, or making decisions? (5 years old or older) Answer Entry Date Author No 12/05/2022 1:12 PM EDMyles Jeter RN documented in this encounter Plan of Treatment Upcoming Encounters Date Type Department Care Team (Late st Contact Info) Description 10/26/2024 10:00 AM EDT Office Visit [facility] [address] [place] [address] Yoana Monet, FARMWORKER RICE [address] [address] Scheduled Orders Name Type Priority Associated Diagnoses Orde r Schedule Renal Function Panel, Plasma Lab Routine Chronic kidney disease, unspecified CKD stage Hypertension, unspecified type Expected: 09/24/2024 (Approximate), Expires: 03/26/2026 CBC W/O Differential Lab Routine Chronic kidney disease, unspecified CKD stage Hypertension, unspecified type Expected: 09/24/2024 (Approximate), Expires: 03/26/2026 Vitamin D 25 Hydroxy Lab Routine Chronic kidney disease, unspecified CKD stage Hypertension, unspecified type Vitamin D insufficiency Expected: 09/24/2024 (Approximate), Expires: 03/26/2026 PTH Intact Total Lab Routine Chronic kidney disease, unspecified CKD stage Hypertension, unspecified type Vitamin D insufficiency Expected: 09/24/2024 (Approximate), Expires: 03/26/2026 Urinalysis with reflex microscopic (Culture NOT Included) Lab Routine Chronic kidney disease, unspecified CKD stage Hypertension, unspecified type Expected: 09/24/2024 (Approximate), Expires: 03/26/2026 Protein, Random, Urine with Creatinine Lab Routine Chronic kidney disease, unspecified CKD stage Hypertension, unspecified type Expected: 09/24/2024 (Approximate), Expires: 03/26/2026 Creatinine, Random, Urine Lab Routine Chronic kidney disease, unspecified CKD stage Hypertension, unspecified type Expected: 09/24/2024 (Approximate), Expires: 03/26/2026 documented as of this encounter Visit Diagnoses Diagnosis Chronic kidney disease, unspecified CKD stage- Primary Hypertension, unspecified type Vitamin D insufficiency documented in this encounter Additional Health Concerns Infection Onset Date Last Indicated Resolved Time MRSA 10/04/2022 10/04/2022 Assessment Noted Time A fall risk assessment has been complete d for the patient 07/28/2023 8:59 AM EDT A Body Mass Index follow-up plan has been documented for the patient 07/28/2023 9:10 AM EDT documented as of this encounter Care Teams Pressure Tester Relationship Specialty Start Date End Date Sarai Centeno PA [address] [place] [address] PCP - General 10/27/22 Bola Rodriguez MD [address] [address] Referring Physician Cardiology 10/27/22 documented as of this encounter
--- OUTSIDE RECORDS SUMMARY | 2024-10-09 07:41 | XMS_ITS | Encounter Summary ---
Author Organization Healthcare Address [address] [place] [address] Care Team Providers Care Customer Service Supervisor Name Role Phone Sarai Centeno Primary Care Provider [phone] Bola Rodriguez MD Unavailable [phone] Encounter Details Date Type Department Care Team (Late st Contact Info) Description 11/17/2010 Orders Only External Location [address] [place] [phone] Provider, External Social History Tobacco Use Types Packs/Day Years Used Date Smoking Tobacco: Never Assessed Sex and Gender Information Value Date Recorded Sex Assigned at Not on file Legal Sex Male 7:31 PM EDT Gender Identity Not on file Sexual Orientation Not on file documented as of this encounter Plan of Treatment Upcoming Encounters Date Type Department Care Team (Late st Contact Info) Description 10/26/2024 10:00 AM EDT Office Visit [facility] [address] [place] [address] Yoana Monet F, IT APPLICATION SUPPORT ANALYST [address] [address] documented as of this encounter Procedures Procedure Name Priority Date/Time Associated Diagnosis Comments CT CHEST WO IV CONTRAST 11/17/2010 5:23 PM EDT documented in this encounter Results * CT Chest wo IV Contrast (11/17/2010 5:23 PM EDT) Anatomical Region Laterality Modality Chest Computed Tomogra phy 11/17/2010 5:23 PM EDT us External Provider IMG CT PROCEDURES Final Result documented in this encounter Visit Diagnoses Not on filedocumented in this encounter Additional Health Concerns Infection Onset Date Last Indicated Resolved Time MRSA 10/04/2022 10/04/2022 documented as of this encounter Care Teams Customer Service Supervisor Relationship Specialty Start Date End Date Sarai Centeno PA [address] [place] [address] PCP - General 10/27/22 Bola Rodriguez MD [address] [phone] Referring Physician Cardiology 10/27/22 documented as of this encounter
--- OUTSIDE RECORDS SUMMARY | 2024-10-09 07:41 | XMS_ITS | Encounter Summary ---
Author Organization Healthcare Address [address] [place] [address] Care Team Providers Care Flap Lining Binder Name Role Phone Sarai Centeno Primary Care Provider [phone] Bola Rodriguez MD Unavailable [phone] Encounter Details Date Type Department Care Team (Late st Contact Info) Description 10/04/2022 Orders Only External Location [address] [place] [phone] Provider, External Social History Tobacco Use Types [...] 10/26/2024 10:00 AM EDT Office Visit [facility] [address] [place] [address] Yoana Monet, FLY FRAME TENDER [address] [address] documented as of this encounter Procedures Procedure Name Priority Date/Time Associated Diagnosis Comments POC US ECHOCARDIOGRAPHY COMPLETE W DOPPLER AND COLOR 10/04/2022 3:30 PM EDT documented in this encounter Results * POC US Echocardiography Complete W Doppler and Color (10/04/2022 3:30 PM EDT) Anatomical Region Laterality Modality Ultrasound 10/04/2022 3:30 PM EDT us External Provider IMG POINT OF CARE ULTRASOUND F inal Result documented in this encounter Visit Diagnoses Not on filedocumented in this encounter Additional Health Concerns Infection Onset Date Last Indicated Resolved Time MRSA 10/04/2022 10/04/2022 documented as of this encounter Care Teams Flap Lining Binder Relationship Specialty Start Date End Date Sarai Centeno PA [address] [place] [address] PCP - General 10/27/22 Bola Rodriguez MD [address] [phone] Referring Physician Cardiology 10/27/22 documented as of this encounter
--- OUTSIDE RECORDS SUMMARY | 2024-10-09 07:41 | XMS_ITS | Data Portability ---
Author Organization JANETH BUFFY [facility] [place] [facility] Address [address] [facility] [address] [place] [address] Care Team Providers Care Cooler Operator Name Role Phone BEATRIZ KING Primary Care Provider GABY NUNEZ Referring Provider Assessment Encounter Date Assessment Date Assessment LastModified by Organization Details LastModified Time 05/09/2023 05/09/2023 SURGERY DATE: 05/09/2023 PREOPERATIVE DIAGNOSES: 1. Right auricle squamous cell carcinoma. 2. Right open auricle wound. POSTOPERATIVE DIAGNOSES: 1. Right auricle squamous cell carcinoma. 2. Right open auricle wound. PROCEDURES: Excision of right auricle squamous cell carcinoma (5 cm). 2. Complex closure of right open auricle wound (5 cm). SURGEON: Eevlio Jones MD ANESTHESIA: General via laryngeal mask airway. COMPLICATIONS: None. FINDINGS: There was a large exophytic ulceration in the right auricle that was occupying the posterior upper 2/3 of the auricles, but did not extend through the cartilage. This was excised on block, took 1 cm margins and I was able to reconstruct this with the remaining anteriorly available auricular skin. INDICATIONS: This patient is a 68-year-old male with auricle squamous cell carcinoma that measures about 5 cm in the right posterior auricle. This has present for 5 or 6 months and has been biopsied. It was felt that the above-mentioned procedures would be indicated. Risks and complications and alternatives were discussed and consent was obtained. OPERATIVE NOTE: After obtaining informed consent, patient was taken to the operating room and placed on the table in supine position. After induction of general anesthesia through laryngeal mask airway, the right auricle was injected circumferentially around the lesion with lidocaine with epinephrine and the patient was draped appropriately. An incision was made circumferentially around this lesion about 1 cm from the edges of the ulceration. I dissected on the anterior surface of the auricular cartilage and elevated the skin from the anterior surface, which was not involved with the tumor. I then dissected down to the mastoid and resected this tumor from the surrounding tissues. All of the tumor was grossly removed. I tacked this short at the superior helix and long at the posterior mastoid skin. Irrigation was performed. The widest excised diameter measure about 5 cm. Bleeding was controlled with bipolar cautery. I then removed any remaining cartilage to allow relax the skin tension free closure. I was able to place the remaining superior helical skin up onto the mastoid skin and I closed this primarily with 4-0 Vicryl and 5-0 nylon. I used the chromic suture to tack down the anterior auricular skin down to the mastoid periosteum deep. This was after irrigation was performed. He tolerated the procedure well. Bacitracin ointment was placed and he was taken to recovery room in stable condition. He will go home on Barbeau and follow up with me in 1 week. cc: LOW Carrasquillo MD [id number] Not available 05/09/2023 22:52:50 Plan of Treatment Reminders Order Date Submit Date Provider Last Modified By Organization Details Last Modified Time Details Appointments None recorded. Lab surgical pathology study [address] [facility], [address] [place] [address], [phone], 3 15:22:03 Referral None recorded. Procedures None recorded. Surgeries None recorded. Imaging None recorded. Medication Orders triamcinolo ne acetonide 0.1 % topical cream 2023 024 [facility], [address] [place] [address], [id number], 4 14:03:58 Patient TargetsNo targets recorded. Patient InstructionsNo instructions recorded. Reason for Referral None Reported. Results Created Date Observation Date Name Description Value Unit Range Abnormal Flag Note LastModifiedBy Organization Detail LastModifiedTime 05/09/19 24 05/09/2023 SURGI JAYY surgical SEE BELOW abnormal Depar tment of Patho logy Surgi jayy Patho logy Repor t NAME: CURLY MARTINEZ PATH. :SS-2 Copy to: Diagn osis: Right auric ular squam ous cell carci noma, excis ion: Invas dyan well to moder ately diffe renti ated squam ous cell carci noma; braden ns free of tumor . SOURC E OF SPECI MEN: SKIN BIOPS Y, RIGHT AURIC ULAR CLINI JAYY INFOR MATIO N: RIGHT AURIC ULAR SCCA Gross Descr iptio n: Recei yonathan fresh label ed with the patie nt's name and desig nated as righ t auric ular squam ous cell carci noma is an ovoid excis ion gross ly consi stent with the back of the ear, which is 5.0 x 4.0 x up to 1.3 cm. There is an indwe lling short sutur e indic ating the super ior helix and a long sutur e indic ating the poste rior masto id per the requi sitio n. The short super ior helix sutur e will be re-de signa diogo as 12 [address], which place s the poste rior masto id sutur e at the 9 o'mitzy ck posit ion. The epide rmal surfa ce is notab le for a large ulcer ated pinki sh-wh ite mass which is 4.1 x 3.2 x 0.7 cm. The mass is 0.4 cm from the neare st braden n (3 o'mitzy ck/an terio r braden n). The deep aspec t of the speci men is surfa luis by jagdeep gage. The braden ns are inked . Repre senta tive secti ons are submi tted as follo ws: A1-pe rpend icula r secti on of lesio n to 12 o'mitzy ck/saunders perio r braden n A2-pe rpend icula r 1-2 o'mitzy ck and 10-11 o'mitzy ck braden ns A3-pe rpend icula r 3 o'mitzy ck (ante rior) and 9 o'mitzy ck (post erior ) braden ns A4-ce ntral tumor to inclu de deep braden n/car tilag e only (no perip heral braden ns) A5-pe rpend icula r 4-5 o'mitzy ck and 7-8 o'mitzy ck braden ns A6-pe rpend icula r secti on of lesio n to 6 o'mitzy ck/in ferio r braden n Inkin g code: Blue = 12-3- 6 o'mitzy ck (ante rior half of speci men) Green = 6-9-1 2 o'mitzy ck (post erior half of speci men) JAB 05/10 10:40 AM Micro scopi c Descr iptio n: A micro scopi c exami natio n has been perfo rmed and the resul t(s) are as noted above . EVY Akhtar MD Julieta d Out Date: 05/11 09:55 Page 1 of 1 Not Available [facility] [address] [place] [address], [phone], 05/11/2023 09:55:48 Result Notes None recorded. Problems Name Problem SNOMED Code Status Onset Date Resolution Date Notes Provider Name and Address Organization Details Recorded Time Heart disease 03199016 Active 023 [facility] [place] [facility] [place] 03/30/2023 14:45:57 Problem Notes None recorded. Procedures Surgical History Date Name Laterality Status Provider Name and Address Organization Details Recorded Time 3 Biopsy Ear Lesion completed [facility] 03/18/2023 11:12:43 3 DAK - Cryo AK completed [facility] 03/18/2023 11:13:29 3 DAK - Biopsy, Tangential completed [facility] 03/18/2023 11:11:36 procedure on heart completed [facility] 03/30/2023 14:46:26 Imaging Results None recorded. Procedure Notes None recorded. Medical Equipment None Reported. Allergies No known drug allergies Medications Name Sig Start Date Stop Date Status Note LastModified by Organization Details LastModified Time hydrocodone 5 mg-acetamino phen 325 mg tablet Take 1-2 tablet(s) EVERY 6 HOURS by oral route as needed for pain (No more than 6 tablets per day). 2023 active not taking Not Available Not Available Not Available triamcinolon e acetonide 0.1 % topical cream APPLY A THIN LAYER TO THE AFFECTED AREA(S) BY TOPICAL ROUTE 2 TIMES PER DAY FOR 10 DAYS 2023 active Not Available Not Available Not Avai lable carvedilol active Not Available Not Av ailable Not Available Plavix active Not Available Not Availa ble Not Available metoprolol succinate active Not Available Not Available No t Available Eliquis active Not Available Not Avail able Not Available Vitals Date Recorded Body height Body mass index (BMI) Body weight Provider Name and Address Organization Details Last Updated DateTime 05/16/2023 190.5 cm 30.9 kg/m2 549905.32 g [facility] 05/16/2023 14:17:59 Date Recorded Body height Systolic And Diastolic Provider Name and Address Organization Details Last Updated DateTime 08/23/2023 190.5 cm 184/100 mm[Hg] [facility] 14:25:42 Date Recorded Body height Body mass index (BMI) Body weight Systolic And Diastolic Provider Name and Address Organization Details Last Updated DateTime 03/30/2023 190.5 cm 29.4 kg/m2 442231.21 g 180/90 mm[Hg] [facility] 03/30/2023 14:53:54 Social History Question Answer Notes LastModified by zlien Details LastModified Time Tobacco Smoking Status Current Every Day [facility] 03/18/2023 10:52:31 Sunscreen Use? No [email or web address] Informatio n not available 03/18/2023 Tanning Bed Use No khamagata Informati on not available 03/18/2023 Sex: Male Functional Status Question Answer Note LastModified by zlien Details LastModified Time Do you use any illicit or recreational drugs? No [email or web address] Information not available 05/16/2023 What is your level of alcohol consumption? Occasional [email or web address] Information not available 05/16/2023 Mental Status None recorded. Family History Nothing Reported. Medical History No medical history recorded. Gynecological HistoryNo gynecological history recorded. Obstetrics History GPAL:G 0 P 0 0 0 0 Past Encounters Encounter ID Performer Location Encounter Start Date Encounter Closed Date Diagnosis/Indication Diagnosis SNOMED-CT Code Diagnosis ICD10 Code Diagnosis Note [id number] GABY MENDIOLA MD [place] [address] [place] [address] 03/18/2023 09:59:42 03/24/2023 09:59:03 Multiple benign melanocytic nevi 082243891 D22.9 Benign appearing nevi noted on exam. Reassured. Monitor for changes and call us for appt if changing or worrisome. Recommende d daily SPF 30 (or higher) broad-spec trum sunscreen usage with re-applica tion every 2 hours, as well as sun protection measures, including wide-brimm ed hats, wearing of protective clothing, and avoidance of sun during peak hours of the day 10 am - 4 pm. Avoid tanning beds as these can increase chances of all 3 main types of skin cancers. Seborrheic keratosis 394 705740 L82.1 Seborrheic keratosis are benign but may be cosmetical ly bothersome . Cosmetic removal with liquid nitrogen is an option. This may leave discolorat ion, or the SK may persist or recur at the treatment site. Solar lentigo 95801324 L 81.4 - Benign brown spots- Sun-induce d Senile angioma 3076270 I 78.1 - Benign blood vessel growths- Hereditary History of malignant neoplasm of skin 937410542 Z85.828 - No evidence of recurrence today- Call with any worrisome lesions or if treated lesions return- Return at regular intervals for skin exam as recommende d Numerous NMSC Neoplasm o f uncertain behavior of skin 49903150 D48.5 Left second MCP - heaped up hyperkerat otic inflamed pink plaque - R/o NMSC - Mohs if +Right posterior ear - 5cm x 2.5cm tender nodule with central crust - R/o NMSC - ENT vs. Mohs if +Right preauricul ar - atrophic telangiect atic plaque - R/o infiltrati ve BCC vs Scar - Mohs if + Actinic keratosis 693822 007 L57.0 Actinic keratoses are precancero us lesions that may progress to squamous cell carcinoma if untreated. UV light and genetics may increase risk. Treated lesions should blister, scab over, and heal within a few weeks. If treated lesion(s) does not resolve within 1-2 months, patient agrees to follow up for re-evaluat ion. [id number] EVELIO JONES MD ENT [facility] [address] [place] [address] 03/30/2023 14:07:12 03/30/2023 16:43:07 Squamous cell carcinoma of skin of ear 378415365 C44.222 Very large malignancy on the right posterior auricle . Has been growing for several months. Recommend excision. Will try to just remove the back portion of the upper auricle with cartilage but may require a partial auriculect carlos. He agrees. Schedule. Would have to be off Plavix for 1 week and Eliquis for 3 days. Will need to get clearance from his cardiologi st [id number] EVELIO JONES MD SURGERY SCHEDULE [address] [place] [address] 1 05/09/2023 11:25:22 05/09/2023 11:37:00 [id number] EVELIO JONES MD ENT SB [address] [place] [address] 1 05/16/2023 13:55:04 05/16/2023 15:27:22 Squamous cell carcinoma of skin of ear 394908419 C44.222 1 week s/p Excision of right auricle squamous cell carcinoma w/ complex closure of right open auricle wound 05/09/23. Pathology reviewed. All the margins were free of tumor. Sutures removed. Incision intact. Skin looks healthy. F/u 3 months [id number] EVELIO JONES MD ENT [facility] [address] [place] [address] 1 08/23/2023 14:16:14 08/24/2023 07:30:42 Squamous cell carcinoma of skin of ear 795336437 C44.222 >3mo s/p Excision of right auricle squamous cell carcinoma w/ complex closure of right open auricle wound 05/09/23. Pathology reviewed. All the margins were free of tumor. Healed well. Lesion of external ear 371418841 H61.899 Left mastoid tip. Will do triamcinol one cream. f/u if not improved Health Concerns Section Related Observation LastModified by Organization Detai ls LastModified Time None Recorded Concern Status LastModified by Organization Details LastModified Time None Recorded Advance Directives Directive None Recorded Payers Insurance Date Sequence Insurance Name Policy Number Policy Herrera Covered Member ID Herrera Member ID Guarantor Name 04/27/2023 3 [place] [facility] CHOICES - FFS/TRADITION AL Curly Anderson [id number] Curly Anderson 08/20/2023 1 [facility] PLAN - DUAL ELIGIBLE (MEDICARE REPLACEMENT/A DVANTAGE - HMO) [id number] Curly Anderson [id number] Curly Anderson 05/09/2023 1 [facility] - DUAL ELIGIBLE (MEDICARE REPLACEMENT/A DVANTAGE - HMO) KYMIRIAM Anderson [id number] Curly Anderson 05/09/2023 1 [place] Curly Anderson [id number] Curly Anderson 12/15/2023 2 [employer] [place] (MEDICAID HMO) Curly Anderson [id number] Curly Anderson 04/12/2023 2 UNSPECIFIED REMIT PAYOR Curly Anderson Notes Date Note Type Note Provider Name and Address Organization Details Recorded Time 03/18/2023 text/html I would also lik e a waist up skin exam.Location: Waist up.Hx of numerous NMSCs. Denies hx of MM.Reports: Numerous concerns. I have a spot behind my ear.Location: R postauricular earDuration: 5 months.Reports: it hasn't bled, but clear fluid runs down. Reports spot on L hand was prev biopsied & was a skin cancer but not the bad kind . Partially biopsied, did not have definitive tx for that one. GABY MENDIOLA MD [address] [place], [address], [facility] 03/21/2023 14:57:33 03/30/2023 text/html Ref: Dr. Gaby Newman complaint: Right postauricular ear lesionTimin moDuration:Constant Location: AdSeverity: 5cm x 2.5 cmQuality:Context: hx of skin cancer on the armModifying factors:Had recent Bx that was SCCAAssoc signs and symptoms: Ad postauricular ear lesion, has pain in that area, weeping daily, large scabbing in that area. EVELIO JONES MD [facility] [place], [address], [facility] 03/30/2023 16:07:45 05/16/2023 text/html Chief Complaint: post op excision right auricular squamous cell carcinoma, possible partial rt auriculectomyTiming :05/09/23Duration:Loc ation:right auricularSeverity:h ealingQuality:clean , tenderContext:Modif pham Factors:Barbeau at night, Pathology 05/09/23, plavix and eliquis resumed after surgeryAssoc signs and symptoms:mild oozing from surgical site yesterday after coughing- resolved, slight headache EVELIO JONES MD [facility] [place], [address], [facility] 05/16/2023 15:04:59 08/23/2023 text/html Chief Complaint: post op excision right auricular squamous cell carcinoma, possible partial rt auriculectomyTiming :05/09/23Duration:Loc ation:right auricularSeverity:h ealed wellQuality:Context :Modifying Factors:Pathology 05/09/23- reviewed last visit, plavis daily, eliquis BIDAssoc signs and symptoms: no pain, no recent discharge, no headaches, not recently sick, has a lesion behind the left ear that gets red - goes away and comes back - has been excised previously but came back EVELIO JONES MD [facility] [place], [address], [facility] 08/23/2023 17:18:41 OBGyn Episode No OBEpisode recorded.
--- OUTSIDE RECORDS SUMMARY | 2024-10-09 07:42 | XMS_ITS | Patient Health Record ---
Author Organization [facility] Address [address] [place] [address] Support Name Relationship Address Phone [place] [address] Jeffery Marks Guarantor Unknown [phone] Allergies No Known Allergies Reason For Referral No Information Medications Medication SIG (Take, Route, Frequency, Duration) Notes Start Date End Date Status lidocaine 2% 5 mL intravenously once; Duration: 1 dose(s) 02/25/2021 Active tiZANidine 4 mg 1 tab(s) orally 3 times a day; Duration: 30 day(s) 02/25/2021 Active metFORMIN 500 mg 1 tab(s) orally 2 times a day; Duration: 30 day(s) 02/25/2021 Active ergocalciferol 50,000 intl units for Supplement; TAKE ONE CAPSULE EVERY WEEK; Duration: 30 Active Eliquis 5 mg as directed orally 2 times a day; Duration: 30 day(s) Active losartan 25 mg 1 tab(s) orally once a day; Duration: 30 day(s) 07/09/2021 Active Methadone Hydrochloride 10 mg 1 tab(s) orally every 8 hours; Duration: 28 days DO NOT FILL SOONER THAN 28 DAYS, (OK TO FILL EARLY IF CLOSED) Active amLODIPine 10 mg 1 tab(s) orally once a day; Duration: 30 day(s) 08/15/2020 Active Methadone Hydrochloride 10 mg 1 tab(s) orally every 8 hours; Duration: 28 days DO NOT FILL SOONER THAN 28 DAYS, (OK TO FILL EARLY IF CLOSED) Active clopidogrel 75 mg 1 tab(s) orally once a day; Duration: 30 day(s) 08/15/2020 Active Zanaflex 4 mg 1 tab orally every 1 2 hours; Duration: 28 days Active omeprazole 20 mg 1 cap(s) orally once a day; Duration: 30 day(s) 08/15/2020 Active Lidocaine, Topical 5% 1 patch applied topically once a day for 12 hours, then off for 12 hours; Duration: 30 day(s) Active gabapentin 600 mg 1 tab(s) orally 3 times a day; Duration: 30 day(s) 07/11/2020 Active carvedilol 6.25 mg 1 tab(s) orally 2 times a day; Duration: 30 day(s) 08/15/2020 Active Problems Problem Type SNOMED Code ICD Code Onset Dates Problem Status W/U Status Risk Notes Problem Degeneration of lumbar intervertebral disc (29707223) Other intervertebral disc degeneration, lumbar region (M51.36) Active confirmed Problem Degeneration of lumbosacral intervertebral disc (52595628) Other intervertebral disc degeneration, lumbosacral region (M51.37) Active confirmed Problem Low back pain (866817065) Low back pain (M54.5) Active confirmed Problem Long-term current use of drug therapy (976122127) Other mcc (current) drug therapy (Z79.899) Active confirmed Problem Muscle pain (62108154) Myalgia, unspecified site (M79.10) Active confirmed Plan Of Treatment Pending Test Test Name Order Date Urine Test ANALYZER 07/23/2019 Insurance Providers Payer Name Payer Address Payer Phone Subscriber Number Group Number Insured Name Patient Relationship to Insured Coverage Start Date Coverage End Date [place] [address] [place] [address] [id number] Jeffery Marks Self - patient is the insured 2 [employer] [address] [address] [place] [address] [id number] Jeffery Marks Self - patient is the insured 1 Medical (General) History Medical History History ICD Code GERD- onset: 2007 / managed by Anxiety- onset:2007 / managed by COPD- onset:2004 / managed by Skin cancer- onset:2016 / managed by Insomnia- onset:2007 / managed by Depression- onset: 2007 / managed by CA x2- onset: 05/21, 08/13/2016 / manage d by Surgical History Surgery Date(Month/Year) Skin cancer removal x2 / [facility] / OP 2016 Hospitalization History Reason Date(Month/Year) Stroke/[facility]/3 day stay 1
--- OUTSIDE RECORDS SUMMARY | 2024-10-09 07:42 | XMS_ITS | Data Portability ---
Author Organization [facility] Address [address] [place] [id number] Assessment No assessment recorded. Plan of Treatment Reminders Order Date Submit Date Provider Last Modified By Organization Details Last Modified Time Details Appointments OV EST 15 2024 09:30A M True Adams Jr, MD Not available Not available Not available Lab PSA, serum or plasma 2023 024 [email or web address] Not available 11/09/2023 09:55:45 Referral None recorded . Procedures None recorded . Surgeries None recorded . Imaging US, renal 2023 024 [email or web address] [facility] (Radiology), [address] [place] [address] , [place], [address], 11/16/2023 08:21:08 US, renal - Please do before 2022 023 [facility], [address], 10/26/2023 11:33:15 Medication Orders None recorded . Patient TargetsNo targets recorded. Patient InstructionsNo instructions recorded. Reason for Referral None Reported. Results Created Date Observation Date Name Description Value Unit Range Abnormal Flag Note LastModifiedBy Organization Detail LastModifiedTime 11/02/1911/02/2023 PSA TOTAL + %FREE note Unles s other wright noted testi ng perfo rmed at: [facility] [address] [place] [address] [phone] Leon rivera MD CLIA: [id number] Not Available Psychiatric (Lab Registration) [address], [place], [address], 11/03/2023 12:15:40 11/02/19 24 11/03/2023 PSA TOTAL + %FREE prostate specific Ag, serum 1.1 NG/mL 0.0-4. 0 Anabell ECLIA metho dolog y. . Accor ding to the Ameri can Urolo gical Assoc iatio n, Serum PSA shoul d decre ase and remai n at undet ectab le level s after radic al prost atect carlos. The AUA defin es bioch emica l recur rence as an initi al PSA value 0.2 ng/mL or great er follo wed by a subse quent confi rmato ry PSA value 0.2 ng/mL or great er. Value s obtai ken with diffe rent assay metho ds or kits canno t be used inter serrano eably . Resul ts canno t be inter prete d as absol xochitl evide nce of the prese nce or absen ce of reymundo gutiérrez se. SENT TO [facility] Not Available [facility] (Lab Registration) [address], [place], [address], 11/03/2023 12:15:40 11/02/19 24 11/03/2023 PSA TOTAL + %FREE PSA, free 0.46 NG/mL n/a Anabell ECLIA metho dolog y. SENT TO [facility] Not Available Psych[facility] (Lab Registration) [address], [place], [address], 11/03/2023 12:15:40 11/02/19 24 11/03/2023 PSA TOTAL + %FREE % free PSA 41.8 % The table below lists the proba bilit y of prost ate cance r for men with non-s uspic ious AGUS resul ts and total PSA betwe en 4 and 10 ng/mL , by patie nt age (Concepcion terence et al, ERIC 1998, 279:1 542). % Free PSA 50-64 yr 65-75 yr 0.00- 10.00 % 56% 55% 10.01 -15.0 0% 24% 35% 15.01 -20.0 0% 17% 23% 20.01 -25.0 0% 10% 20% >25.0 0% 5% 9% Plezion mead note: Blair flores et al did not make speci fic recom menda tions regar ding the use of perce nt free PSA for any other popul ation of men. Perfo rmed at: [facility] [address] [facility], [place] [address] 1261 Lab Direc tor: Rodney arevalo PhD, Phone : [phone] SENT TO [facility]FER [facility] LAB Not Available Psychiatric (Lab Registration) [address] [place], [address], 11/03/2023 12:15:40 10/28/19 23 10/06/2022 US, renal No observ ation record ed. [email or web address] [facility] (Med Record) [address], [place], [address], 10/27/2022 14:06:56 11/01/19 24 11/01/2023 US, renal [facility] [address] [place] [address] Phone: Fax: Name: CURLY RUDD Exam Date: 024 : 957 Age 68 years Gender : M Access ion: [id number] Physic bong: CORA ADAMS Facili ty: [facility] Facili ty HSV: Outpat ient Exam: US RENAL BILATE RAL PROCED URE: US KIDNEY BILATE RAL. HISTOR Y: Feliz meza is a 68 year old Male with other specif ied disord ers of kidney and ureter . COMPAR GHISLAINE: None availa ble. TECHNI QUE: Two-di mensio nal graysc debora ultras ound imagin g of the kidney s was perfor med. The feliz meza's name and date of are not visual ized on the images provid ed but have been confir med by the techno logist . FINDIN GS: The right kidney measur es 11.2 x 5.8 x 6.5 cm. Renal cortic al echote xture is normal . Mild perine phric strand ing is visual ized. There is no hydron ephros is. There are no stones . There are no cysts. 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 The left kidney measur es 11.8 x 4.9 x 6.4 cm. Renal cortic al echote xture is normal . There is no hydron ephros is. There are no stones . There is a simple cyst visual ized in the superi or pole that measur es 2.2 x 2.0 x 2.2 cm. IMPRES ROD: 1. 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 2. Left kidney superi or pole 2.2 cm simple cyst. 3. Mild right perine phric strand ing. Thank you for allowi ng us to assist in the care of this patien t. Electr onical ly signed by: Curly Sanchez MD 2023 09:30 PM EDT RP Workst ation: [id number] Dictat ed By: Curly Sanchez Transc ribed By: Transc ribed On: 9:29 AM Electr onical ly signed by: Curly Sanchez Thank you for referr CURLY Rodríguez to [facility]. Legall y authen ticate d by CELINA RAWLS MD 2023-10-31 09:29: 00 CC'ed Logic: Orderi ng Provid er: BRYAN Funes CC Provid er: SLIME RATLIFF Attend ing Provid er: BRYAN Funes Referr ing Provid er: BRYAN Funes Admitt ing Provid er: BRYAN Funes [facility] (Radiology) [address] , [place], [address], 11/01/2023 21:36:53 Result Notes None recorded. Problems Name Problem SNOMED Code Status Onset Date Resolution Date Notes Provider Name and Address Organization Details Recorded Time Cerebrovas cular accident 014831241 Active 2021 Not Available [facility] 3 14:51:58 Cerebrovas cular disease 30004797 Active 2021 Not Available [facility] 3 14:51:58 Acute stroke 9100341427897 04 Active 2022 Maurice mae JANETH CRYSTAL [facility] & [place] 3 13:47:39 Hypertensi ve disorder 19222939 Active 2022 JANETH De La Garza [facility] & [place] 3 13:47:51 Problem Notes None recorded. Procedures Surgical History Date Name Laterality Status Provider Name and Address Organization Details Recorded Time excision of malignant neoplasm of skin of lower limb [facility] [place] 10/27/2022 13:50:39 Imaging Results None recorded. Procedure Notes None recorded. Medical Equipment None Reported. Allergies No known drug allergies Medications Name Sig Start Date Stop Date Status Note LastModified by Organization Details LastModified Time losartan 50 mg tablet TAKE ONE TABLET BY MOUTH DAILY active Not Available Not Available No t Available amoxicillin 500 mg capsule take 1 capsule(5 00 mg) orally twice a day for 10 days active Not Available Not Available No t Available fluconazole 100 mg tablet TAKE TWO TABLETS BY MOUTH ONCE DAILY active Not Available Not Available No t Available metformin 500 mg tablet TAKE ONE TABLET BY MOUTH TWICE DAILY active Not Available Not Available No t Available promethazin e-DM 6.25 mg-15 mg/5 mL oral syrup TAKE 5 mL( 1 TEASPOONF UL) orally every 4-6 hours As Needed for cough active Not Available Not Available No t Available atorvastati n 80 mg tablet for Cholester ol; TAKE ONE TABLET BY MOUTH EVERY DAY active Not Available Not Available No t Available carvedilol 25 mg tablet TAKE 1 TABLET orally twice a day active Not Available Not Available No t Available nystatin 100,000 unit/mL oral suspension swish and swallow 1 mL four times a day] active Not Available Not Available No t Available carvedilol 6.25 mg tablet take 1 tablet twice a day 10/27 completed Not Available Not Available Not Available carvedilol 12.5 mg tablet TAKE 1 TABLET orally twice a day must administe r with a meal/food active Not Available Not Available No t Available diltiazem ER 180 mg capsule,24 hr,extended release TAKE ONE CAPSULE BY MOUTH DAILY active Not Available Not Available No t Available Lidocaine Viscous 2 % mucosal solution apply 1 APPLICati on to affected mucosal area four times a day As Needed for pain active Not Available Not Available No t Available tizanidine 4 mg tablet take 1 tab by mouth every 12 hours for 28 days active Not Available Not Available No t Available benzonatate 200 mg capsule TAKE ONE CAPSULE BY MOUTH THREE TIMES DAILY NEEDED FOR cough 12/22 completed Not Available Not Available Not Available hydrocodone 5 mg-acetamin ophen 325 mg tablet Take 1-2 tablet(s) EVERY 6 HOURS by oral route as needed for pain (No more than 6 tablets per day). active Not Available Not Available No t Available fluticasone propionate 0.05 % topical cream Apply to face two times daily up to 14 days when flared, stop for 7 days, repeat as needed. active Not Available Not Available No t Available methadone 10 mg tablet take 1 tab(s) by mouth every 8 hours for 28 days. Do not fill any sooner than every 28 days unless closed. active Not Available Not Available No t Available prednisone 20 mg tablet TAKE 1 TABLET(20 mg) orally twice a day; administe r with food or milk active Not Available Not Available No t Available fluorouraci l 5 % topical cream Apply a thin layer from elbows to knuckles twice daily for four weeks. active Not Available Not Available No t Available Accu-Chek Softclix Lancets use As directed active Not Available Not Available No t Available clopidogrel 75 mg tablet TAKE 1 TABLET orally daily for platelet inhibitor /hx of stents active Not Available Not Available No t Available sulfamethox azole 800 mg-trimetho prim 160 mg tablet take 1 tab orally twice a day for 10 days active Not Available Not Available No t Available aspirin 81 mg tablet,poonam yed release TAKE 1 TABLET orally daily active Not Available Not Available No t Available triamcinolo ne acetonide 0.1 % topical cream APPLY A THIN LAYER TO THE AFFECTED AREA(S) BY TOPICAL ROUTE 2 TIMES PER DAY FOR 10 DAYS active Not Available Not Available No t Available amoxicillin 875 mg tablet TAKE ONE TABLET BY MOUTH TWICE DAILY 10/27 completed Not Available Not Available Not Available gabapentin 800 mg tablet TAKE ONE TABLET BY MOUTH FOUR TIMES DAILY active Not Available Not Available No t Available amlodipine 10 mg tablet TAKE 1/2 TABLET BY MOUTH TWICE A DAY active Not Available Not Available No t Available pantoprazol e 40 mg tablet,poonam yed release TAKE 1 TABLET orally at bedtime nightly active Not Available Not Available No t Available metformin 1,000 mg tablet take 1 tablet(10 00 mg) orally twice a day active Not Available Not Available No t Available triamcinolo ne acetonide 0.1 % topical ointment Apply a thin layer to arms once daily for four weeks if irritated and flared. active Not Available Not Available No t Available lisinopril 10 mg tablet TAKE ONE TABLET BY MOUTH DAILY active Not Available Not Available No t Available lidocaine 5 % topical patch apply 1 patch topically once a day for 12 hours, then off for 12 hours for 30 day(s) active Not Available Not Available No t Available losartan 25 mg tablet take two Tablet(s) once a day 10/27 completed Not Available Not Available Not Available nitroglycer in 0.4 mg sublingual tablet DISSOLVE 1 TABLET UNDER THE TONGUE EVERY 5 MINUTES NEEDED FOR CHEST PAIN. DO NOT EXCEED A TOTAL OF 3 DOSES IN 15 MINUTES. active Not Available Not Available No t Available gabapentin 300 mg capsule take 1 capsule(3 00 mg) orally twice a day active Not Available Not Available No t Available omeprazole 20 mg capsule,del ayed release TAKE ONE CAPSULE BY MOUTH TWICE DAILY active Not Available Not Available No t Available mupirocin 2 % topical ointment apply to surgical daily. Keep covered with bandage active Not Available Not Available No t Available lorazepam 1 mg tablet Take one tablet by mouth one hour prior to procedure while in office. active Not Available Not Available No t Available albuterol sulfate HFA 90 mcg/actuati on aerosol inhaler INHALE 2 puffS every 6 hours active Not Available Not Available No t Available Vitamin D2 1,250 mcg (50,000 unit) capsule for Supplemen t; TAKE ONE CAPSULE EVERY WEEK active Not Available Not Available No t Available losartan 100 mg tablet TAKE 1 TABLET orally daily active Not Available Not Available No t Available doxycycline hyclate 100 mg tablet TAKE ONE TABLET BY MOUTH TWICE DAILY 10/27 completed Not Available Not Available Not Available amoxicillin 875 mg-potassiu m clavulanate 125 mg tablet TAKE ONE TABLET BY MOUTH TWICE DAILY FOR 10 DAYS active Not Available Not Available No t Available ezetimibe 10 mg tablet take 1 tablet(10 mg) orally daily active Not Available Not Available No t Available rosuvastati n 40 mg tablet TAKE ONE TABLET BY MOUTH DAILY FOR elevated cholester ol active Not Available Not Available No t Available fenofibrate nanocrystal lized 145 mg tablet TAKE ONE TABLET BY MOUTH DAILY active Not Available Not Available No t Available [facility] spacer USE DIRECTED with inhaler PER md active Not Available Not Available No t Available Mucus DM Max ER 60 mg-1,200 mg tablet,exte nded release TAKE ONE TABLET BY MOUTH EVERY 12 HOURS active Not Available Not Available No t Available Eliquis 5 mg tablet TAKE 1 TABLET orally twice a day for Blood Thinner/h x of stents active Not Available Not Available No t Available Jardiance 10 mg tablet take 1 tablet(10 mg) orally daily for Diabetes active Not Available Not Available No t Available Accu-Chek Guide test strips use As directed active Not Available Not Available No t Available Accu-Chek Guide Glucose Meter use As directed active Not Available Not Available No t Available Clenpiq 10 mg-3.5 gram-12 gram/160 mL oral solution take 175 mL for 2 doses; take first dose at 5-9PM evening before colonosco py; 2nd dose the next day approxima tely 5 hrs before colonosco py active Not Available Not Available No t Available lidocaine 5 % topical patch-adhes dyan silicone combo pack as directed External as needed 12/22 completed Not Available Not Available Not Available Ozempic 0.25 mg or 0.5 mg (2 mg/3 mL) subcutaneou s pen injector inject 0.25 mg (0.368 mL) subcutane ously weekly for Diabetes; for 4 weeks active Not Available Not Available No t Available Clenpiq 10 mg-3.5 gram-12 gram/175 mL oral solution active Not Available Not Available Not Available Vitals Date Recorded Body height Body temperature Body mass index (BMI) Body weight Provider Name and Address Organization Details Last Updated DateTime 10/27/2022 190.5 cm 98.1 [degF] 27.5 kg/m2 18283.32 g Maurice FOWLER [facility] [place] 10/27/2022 13:45:18 Date Recorded Body weight Body temperature Body mass index (BMI) Body height Provider Name and Address Organization Details Last Updated DateTime 11/02/2023 25724.32 g 98.5 [degF] 27.5 kg/m2 190.5 cm Maurice Rothman [place] - [place] [facility] [place] 11/02/2023 09:36:26 Social History Question Answer Notes LastModified by Organizat ion Details LastModified Time Tobacco Smoking Status Current Every Day Smoker Not Available [employer] 10/20/2022 14:51:58 How Much Tobacco Do You Smoke? 1 PPD CHART_MERGE Information not available 10/20/2022 Sex: Unknown Functional Status Question Answer Note LastModified by Organization D etails LastModified Time What is your level of alcohol consumption? None Information not available 10/27/2022 Mental Status None recorded. Family History Relationship Description Onset Age of this Age Resolved Age Notes LastModified by Organization Details LastModified Time Father Heart disease dec [email or web address] Not available 2022 13:49:07 Mother Malignant neoplastic disease dec-th roat [email or web address] Not available 10/27/2022 13:48:54 Brother Malignant neoplastic disease dec-co kale [email or web address] Not available 10/27/2022 13:48:54 Sister Malignant neoplastic disease dec-co kale [email or web address] Not available 10/27/2022 13:48:54 Sister Acute stroke dec [email or web address] Not avai lable 10/27/2022 13:49:24 Notes:Mother -diagno sed with cancer. 1 sibling -stroke and cancer. Grandparents -cancer Medical History Condition Response Diabetes Y Anxiety Disorder Y Heart Problems Y Hypertension Y COPD Y Kidney Disease Y Past Encounters Encounter ID Performer Location Encounter Start Date Encounter Closed Date Diagnosis/Indication Diagnosis SNOMED-CT Code Diagnosis ICD10 Code Diagnosis Note [id number] True Adams Jr, MD [facility] [address] [address] 10/27/2022 13:27:43 10/27/2022 14:12:55 Renal mass 696718226 N28.89 Patient with an 8 mm right hyperechoi c lesion consistent with a hyperdense cyst or angiomyoli jose manuel. Discussed the recent ultrasound findings with the patient. He is reassured that the lesion is very small and appears benign. I recommende d repeating an ultrasound in 1 year to assess stability. [id number] True Adams Jr, MD [facility] [address] [address] 11/02/2023 09:20:27 11/02/2023 09:57:16 Renal mass 322788442 N28.89 Patient with an 1 cm right hyperechoi c lesion consistent with a hyperdense cyst or angiomyoli jose manuel. Discussed the recent ultrasound findings with the patient. He is reassured that the lesion is very small and appears benign. 2 cm R renal cyst stable. I recommende d repeating an ultrasound in 1 year to assess stability. Screening for malignant neoplasm of prostate 514531370 Z12.5 patient has no history of previous PSAs. We will perform PSA today. Health Concerns Section Related Observation LastModified by Organization Detai ls LastModified Time None Recorded Concern Status LastModified by Organization Details LastModified Time None Recorded Advance Directives Directive None Recorded Payers Insurance Date Sequence Insurance Name Policy Number Policy Herrera Covered Member ID Herrera Member ID Guarantor Name 11/02/2023 1 [employer] [place] (MEDICA[place] HMO) Curly Anderson [id number] Curly Anderson 11/02/2023 1 [place] Curly Anderson [id number] Curly Anderson 11/02/2023 2 [facility] (MEDICARE REPLACEMENT/A DVANTAGE - HMO) [id number] Curly Anderson [id number] Curly Anderson Notes Date Note Type Note Provider Name and Address Organization Details Recorded Time 10/27/2022 text/html Patient is a 67-year-old white male referred for recent right renal lesion. Renal ultrasound on October 04 showed an 8 mm mass in the upper pole of the right kidney which is hyperechoic in which may represent an angiomyolipoma. There is also a 2.1 cm left renal cyst. True Adams Jr, MD [address] [place] [address], [address], [place], [address], [place] - [facility] [place] & [place] 11/01/2022 15:47:59 11/02/2023 text/html 68-year-old whit e male with history of a small right renal lesion and a 2 cm simple left renal cysts. He follows up today with renal ultrasound. Renal ultrasound was reviewed from October 31. 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 There remains a 2.2 cm simple cyst in left kidney. This is stable from previous. True Adams Jr, MD [address] [place] [address], [address], [place], [address], [place] [facility] [place] [facility] [place] 11/02/2023 13:37:34
== END 2024-10-08 23:59 | disposition home or self-care (01) ==
LOC: LAB.DROPOF 10-09 07:40
PROVIDERS: PCP Family Medicine; Visit Provider Family Medicine
DX: D50.9 Iron deficiency anemia, unspecified (principal); I10 Essential (primary) hypertension; E78.2 Mixed hyperlipidemia
CPT/HCPCS: 80053; 82728; 83036; 83540; 83550; 85025

== ENCOUNTER 2025-01-21 06:57 | Outpatient (CLI) | payer MEDICARE, MEDICAID, SELFPAY ==
--- OUTSIDE RECORDS SUMMARY | 2025-01-21 06:59 | XMS_ITS | Patient Health Record ---
Author Organization [facility] Address [address] [place] [address] Support Name Relationship Address Phone [place] [address] Jeffery Marks Guarantor Unknown [phone] Allergies No Known Allergies Reason For Referral [...] Notes Problem Degeneration of lumbar intervertebral disc (35015431) Other intervertebral disc degeneration, lumbar region (M51.36) Active confirmed Problem Degeneration of lumbosacral intervertebral disc (16760143) Other intervertebral disc degeneration, lumbosacral region (M51.37) Active confirmed Problem Low back pain (089386582) Low back pain (M54.5) Active confirmed Problem Long-term current use of drug therapy (567910571) Other residential (current) drug therapy (Z79.899) Active confirmed Problem Muscle pain (90876887) Myalgia, unspecified site (M79.10) Active confirmed Plan Of Treatment Pending Test Test Name Order Date Urine Test ANALYZER 07/23/2019 Insurance Providers Payer Name Payer Address Payer Phone Subscriber Number Group Number Insured Name Patient Relationship to Insured Coverage Start Date Coverage End Date [place] [address] [place] [address] [id number] Jeffery Marks Self - patient is the insured 2 [employer] [address] [address] [place] [address] [id number] Jeffery Marks Self - patient is the insured 1 Medical (General) History Medical History History ICD Code GERD- onset: 2007 / managed by Anxiety- onset:2007 / managed by COPD- onset:2004 / managed by Skin cancer- onset:2016 / managed by Insomnia- onset:2007 / managed by Depression- onset: 2007 / managed by [place] x2- onset: 05/21, 08/13/2016 / manage d by Surgical History Surgery Date(Month/Year) Skin cancer removal x2 / [facility] / OP 2016 Hospitalization History Reason Date(Month/Year) Stroke/[facility]/3 day stay 1
--- OUTSIDE RECORDS SUMMARY | 2025-01-21 06:59 | XMS_ITS | Data Portability ---
Author Organization JANETH BUFFY C[facility] Address [address] [facility] [address] [place] [address] Care Team Providers Care Manager Helpdesk Name Role Phone BEATRIZ KING Primary Care [...] right open auricle wound (5 cm). SURGEON: Evelio Jones MD ANESTHESIA: General via laryngeal mask [...] stable condition. He will go home on [place] and follow up with me in 1 week. cc: LOW Carrasquillo MD [id number] Not available 05/09/2023 22:52:50 Plan of Treatment Reminders Order Date Submit Date Provider Last Modified By Organization Details Last Modified Time Details Appointments None recorded. Lab surgical pathology study 2022 023 [facility], [address] [place] [address], [phone], 3 15:22:03 Referral None recorded. Procedures None recorded. Surgeries None recorded. Imaging None recorded. Medication Orders triamcinolo ne acetonide 0.1 % topical cream 2023 024 [facility], [address] [place] [address], [phone], 4 14:03:58 Patient TargetsNo targets recorded. Patient [...] 09:55 Page 1 of 1 Not Available [facility] [address] [place] [address], [phone], 05/11/2023 09:55:48 Result Notes None recorded. Problems Name Problem SNOMED Code Status Onset Date Resolution Date Notes Provider Name and Address Organization Details Recorded Time Heart disease 37011961 Active 023 [facility] 03/30/2023 14:45:57 Problem Notes None recorded. Procedures Surgical History Date Name Laterality Status Provider Name and Address Organization Details Recorded Time 3 Biopsy Ear Lesion completed [facility] 03/18/2023 11:12:43 3 DAK - Cryo AK completed [facility] 03/18/2023 11:13:29 3 DAK - Biopsy, Tangential completed [facility] 03/18/2023 11:11:36 procedure on heart [facility] 03/30/2023 14:46:26 Imaging Results None recorded. Procedure [...] Updated DateTime 05/16/2023 190.5 cm 30.9 kg/m2 800388.32 g [facility] 05/16/[facility]23 14:17:59 Date Recorded Body height Systolic And Diastolic Provider Name and Address Organization Details Last Updated DateTime 08/23/2023 190.5 cm 184/100 mm[Hg] [facility]/2023 14:25:42 Date Recorded Body height Body mass index (BMI) Body weight Systolic And Diastolic Provider Name and Address Organization Details Last Updated DateTime 03/30/2023 190.5 cm 29.4 kg/m2 444970.21 g 180/90 mm[Hg] [facility] 03/30/2023 14:53:54 Social History Question Answer Notes LastModified by [employer] Details LastModified Time Tobacco Smoking Status Current Every Day [facility] 03/18/2023 10:52:31 Sunscreen Use? No [email or web address] Informatio n not available 03/18/2023 Tanning Bed Use No [email or web address] Informati on not available 03/18/2023 Sex: Male Functional Status Question Answer Note LastModified by [employer] Details LastModified Time Do you use any illicit or recreational drugs? No [email or web address] Information not available 05/16/2023 What is your level of alcohol consumption? Occasional [email or web address] Information not available 05/16/2023 Mental Status None recorded. Family History Nothing Reported. Medical History No medical history recorded. Gynecological HistoryNo gynecological history recorded. Obstetrics History GPAL:G 0 P 0 0 0 0 Past Encounters Encounter ID Performer Location Encounter Start Date Encounter Closed Date Diagnosis/Indication Diagnosis SNOMED-CT Code Diagnosis ICD10 Code Diagnosis IMO Codes Diagnosis Note [id number] GABY MENDIOLA MD [address] [address] 03/18/2023 09:59:42 03/24/2023 09:59:03 Multiple benign melanocytic nevi 132566964 D22.9 Benign appearing nevi noted on exam. [...] types of skin cancers. Seborrheic keratosis 394 145314 L82.1 Seborrheic keratosis are benign but may be cosmetical ly bothersome . Cosmetic removal with liquid nitrogen is an option. This may leave discolorat ion, or the SK may persist or recur at the treatment site. 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 Mohs if +Right preauricul ar - atrophic telangiect atic plaque - R/o infiltrati ve BCC vs Scar - Mohs if + Actinic keratosis 454702 007 L57.0 Actinic keratoses are precancero us lesions that may progress to squamous cell carcinoma if untreated. UV light and genetics may increase risk. Treated lesions should blister, scab over, and heal within a few weeks. If treated lesion(s) does not resolve within 1-2 months, patient agrees to follow up for re-evaluat ion. 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 Pathology reviewed. All the margins were free of tumor. Sutures removed. Incision intact. Skin looks healthy. 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 Pathology reviewed. All the margins were free of tumor. Healed well. Lesion of external ear 058505971 H61.899 Left mastoid tip. Will do triamcinol one cream. f/u if not improved Health Concerns Section Related Observation LastModified by Organization Detai ls LastModified Time None Recorded Concern Status LastModified by Organization Details LastModified Time None Recorded Advance Directives Directive None Recorded Payers Insurance Date Sequence Insurance Name Policy Number Policy Herrera Covered Member ID Herrera Member ID Guarantor Name 04/27/2023 3 MEDICAID-[place] [facility] CHOICES - FFS/TRADITION AL Curly Anderson [id number] Curly Anderson 08/20/2023 1 [facility] - DUAL ELIGIBLE (MEDICARE REPLACEMENT/A DVANTAGE - HMO) [id number] Curly Anderson [id number] Curly Anderson 05/09/2023 1 [facility] - DUAL ELIGIBLE (MEDICARE REPLACEMENT/A DVANTAGE - HMO) [id number] Curly Anderson [id number] Curly Anderson 05/09/2023 1 [place] Curly Adnerson [id number] Curly Anderson 12/15/2023 2 [employer] [place] (MEDICAID HMO) Curly Anderson [id number] Curly Anderson 04/12/2023 2 UNSPECIFIED REMIT PAYOR Curly Anderson Notes Date Note Type Note Provider Name and Address Organization Details Recorded Time 03/18/2023 text/html ROS as noted in the HPI I would also like a waist up skin exam.Location: Waist up.Hx [...] for that one. GABY MENDIOLA MD [address] [place], [address], [facility] 03/21/2023 14:57:33 03/30/2023 text/html Ref: Dr. Gaby Newman complaint: Right postauricular ear lesionTimin moDuration:Constant Location: AdSeverity: 5cm x 2.5 cmQuality:Context: hx of skin cancer on the armModifying factors:Had recent Bx that was SCCAAssoc signs and symptoms: Ad postauricular ear lesion, has pain in that area, weeping daily, large scabbing in that area. EVELIO JONES MD [address] [place] [address] [place], [address], [facility] 03/30/2023 16:07:45 05/16/2023 text/html Chief Complaint: post op excision right auricular squamous cell carcinoma, possible partial rt auriculectomyTiming :05/09/23Duration:Loc ation:right auricularSeverity:h ealingQuality:clean , tenderContext:Modif pham Factors:[place] at night, Pathology 05/09/23, plavix and eliquis resumed after surgeryAssoc signs and symptoms:mild oozing from surgical site yesterday after coughing- resolved, slight headache EVELIO JONES MD [address] [place] [address], [phone], [facility] 05/16/2023 15:04:59 08/23/2023 text/html Chief Complaint: post [...] previously but came back EVELIO JONES MD [address] [place] [address] [place], [address], [facility] 08/23/2023 17:18:41 OBGyn Episode No OBEpisode recorded.
--- OUTSIDE RECORDS SUMMARY | 2025-01-21 06:59 | XMS_ITS | Encounter Summary ---
Author Organization Healthcare Address [address] [place] [address] Care Team Providers Care Poultry Pathologist Name Role Phone Sarai Centeno Primary Care Provider [phone] Bola Rodriguez MD Unavailable [phone] Encounter Details Date Type Department Care Team (Late st Contact Info) Description 11/17/2010 Orders Only External Location [address] [place] [address] Provider, External Social History Tobacco Use Types Packs/Day Years Used Date Smoking Tobacco: Never Assessed Sex and Gender Information Value Date Recorded Sex Assigned at Not on file Legal Sex Male 7:31 PM EDT Gender Identity Not on file Sexual Orientation Not on file documented as of this encounter Plan of Treatment Not on file documented as of this encounter Procedures Procedure Name Priority Date/Time Associated Diagnosis Comments CT CHEST WO IV CONTRAST 11/17/2010 5:23 PM EDT documented in this encounter Results * CT Chest wo IV Contrast (11/17/2010 5:23 PM EDT) Anatomical Region Laterality Modality Chest Computed Tomogra phy 11/17/2010 5:23 PM EDT External Provider IMG CT PROCEDURES Final Result documented in this encounter Visit Diagnoses Not on filedocumented in this encounter Additional Health Concerns Infection Onset Date Last Indicated Resolved Time 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
--- OUTSIDE RECORDS SUMMARY | 2025-01-21 06:59 | XMS_ITS | Data Portability ---
Author Organization [facility] Address [address] [place] [address] Assessment No assessment recorded. Plan of Treatment Reminders Order Date Submit Date Provider Last Modified By Organization Details Last Modified Time Details Appointments None recorded . Lab PSA, serum or plasma 024 11/02/19 24 [email or web address] Not available 4 09:55:45 Referral None recorded . Procedures None recorded . Surgeries None recorded . Imaging US, renal 024 11/02/19 24 [email or web address] [facility] (Radiology), [address] , [place], [address], 4 08:21:08 US, renal - Please do before 4 023 10/28/19 23 [email or web address] [facility] (Radiology), [address], [place], [address], 4 11:33:15 Medication Orders None recorded . Patient TargetsNo targets recorded. Patient InstructionsNo instructions recorded. Reason for Referral None Reported. Results Created Date Observation Date Name Description Value Unit Range Abnormal Flag Note LastModifiedBy Organization Detail LastModifiedTime 11/02/19 24 11/02/2023 PSA TOTAL + %FREE note Unles s other wright noted testi ng perfo rmed at: [facility] [address] [place] [address] [phone] Leon rivera MD CLIA: [id number] Not Available [facility] (Lab Registration) [address], [place], [address], 11/03/2023 12:15:40 11/02/19 24 11/03/2023 PSA TOTAL [...] SENT TO REFER ENCE LAB Not Available [facility] (Lab Registration) [address], [place], [address], 11/03/2023 12:15:40 11/02/19 24 11/03/2023 PSA TOTAL + %FREE PSA, free 0.46 NG/mL n/a Anabell ECLIA metho dolog y. SENT TO REFER ENCE LAB Not Available [facility] (Lab Registration) [address], [place], [address], 11/03/2023 12:15:40 11/02/19 24 11/03/2023 PSA TOTAL + %FREE % free PSA 41.8 % The table below lists the proba bilit y of prost ate cance r for men with non-s uspic ious AGUS resul ts and total PSA betwe en 4 and 10 ng/mL , by patie nt age (Concepcion pratt et al, ERIC 1998, 279:1 542). % Free PSA 50-64 yr 65-75 yr 0.00- 10.00 % 56% 55% 10.01 -15.0 0% 24% 35% 15.01 -20.0 0% 17% 23% 20.01 -25.0 0% 10% 20% >25.0 0% 5% 9% Casey mead note: Blair flores et al did not make speci fic recom menda tions regar ding the use of perce nt free PSA for any other popul ation of men. Perfo rmed at: [facility] [address] [facility], [place] [address] Lab Direc tor: Rodney arevalo PhD, Phone : [phone] SENT TO REFER ENCE LAB Not Available [facility] (Lab Registration) [address] [place], [address], 11/03/2023 12:15:40 10/28/19 23 10/06/2022 US, renal No observ ation record ed. [email or web address] [facility] (Med Record) [address], [place], [address], 10/27/2022 14:06:56 11/01/19 24 11/01/2023 US, renal [facility] [address] [facility] [place] [address] Phone: Fax: Name: CURLY RUDD Exam Date: 024 : 957 Age 68 years Gender : M Access ion: [id number] Physic bong: CORA ADAMS Facili ty: [facility] Facili ty HSV: Outpat ient Exam: US RENAL BILATE RAL PROCED URE: US KIDNEY BILATE RAL. HISTOR Y: Patien t is a 68 year old Male with other specif ied disord ers of kidney and ureter . COMPAR GHISLAINE: None availa ble. TECHNI QUE: Two-di mensio nal graysc debora ultras ound imagin g of the kidney s was perfor med. The patien t's name and date of are not visual [...] Thank you for referr CURLY Rodríguez to [facility]. Legall y authen ticate d by CELINA RAWLS MD 2023-10-31 09:29: 00 CC'ed Logic: Orderi ng Provid er: BRYAN Funes CC Provid er: SLIME RATLIFF Attend ing Provid er: BRYAN Funes Referr ing Provid er: BRYAN Funes Admitt ing Provid er: BRYAN Funes [email or web address] [facility] (Radiology) [address] [place] [address] , [place], [address], 10/19/2024 20:12:02 Result Notes None recorded. Problems Name Problem SNOMED Code Status Onset Date Resolution Date Notes Provider Name and Address Organization Details Recorded Time Cerebrovas cular accident 208631339 Active 2021 Not Available [facility] 3 14:51:58 Cerebrovas cular disease 54593116 Active 2021 Not Available [facility] 3 14:51:58 Acute stroke 1214288879967 04 Active 2022 JANETH De La Garza [facility] & [place] 3 13:47:39 Hypertensi ve disorder 20818361 Active 2022 [facility] [place] 3 13:47:51 Problem Notes None recorded. Procedures Surgical History Date Name Laterality Status Provider Name and Address Organization Details Recorded Time excision of malignant neoplasm of skin of lower limb completed Maurice Gipson [facility] [place] 10/27/2022 13:50:39 Imaging Results None recorded. Procedure Notes None recorded. Medical Equipment None Reported. Allergies No known drug allergies Medications Name Sig Start Date Stop Date Status Note LastModified by Organization Details LastModified Time losartan 50 mg tablet TAKE ONE TABLET BY MOUTH DAILY active Not Available Not Available No t Available amoxicillin 500 mg capsule take 1 capsule (500 mg) by oral route 3 times per day active Not Available Not Available No [...] t Available carvedilol 25 mg tablet TAKE ONE TABLET BY MOUTH [...] Not Available Not Available No t Available alprazolam 1 mg tablet TAKE ONE TABLET 1HR PRIOR TO SURGERY active Not Available Not Available No t [...] hydrocodone 5 mg-acetamin ophen 325 mg tablet take 1 tablet by mouth every 4 hours as needed for pain active Not Available Not Available [...] Available fluorouraci l 5 % topical cream use 1 applicati on(s) topically 2 times a day for two weeks active Not Available Not Available No [...] Available omeprazole 20 mg capsule,del ayed release take 1 capsule(2 0 mg) orally daily active Not Available Not Available No t Available montelukast 10 mg tablet take 1 tablet(10 mg) [...] Not Available Not Available No t Available FeroSul 325 mg (65 mg iron) tablet take 1 tablet(32 5 mg) orally daily active Not Available Not Available No t Available sodium,pota ssium,mag sulfates 17.5 gram-3.13 gram-1.6 gram oral soln MIX ACCORDING TO PACKAGE. drink 1 BOTTLE early evening before AND 1 BOTTLE next morning at least 4-5 hr before procedure ; follow w 960 mL water active Not Available Not Available No t Available [facility] spacer USE DIRECTED with inhaler PER md [...] (2 mg/3 mL) subcutaneou s pen injector INJECT 0.25 mg (0.368 mL) subcutane ously weekly [...] 10/27/2022 190.5 cm 98.1 [degF] 27.5 kg/m2 54057.32 g [facility] [place] 10/27/2022 13:45:18 Date Recorded Body weight Body temperature Body mass index (BMI) Body height Provider Name and Address Organization Details Last Updated DateTime 11/02/2023 59085.32 g 98.5 [degF] 27.5 kg/m2 190.5 cm [facility] [place] 11/02/2023 09:36:26 Social History Question Answer Notes LastModified by [employer] ion Details LastModified Time Tobacco Smoking Status Current Every Day Smoker Not Available [facility] 10/20/2022 14:51:58 How Much Tobacco Do You Smoke? 1 PPD [email or web address]_[email or web address] Information not available 10/20/2022 Sex: Unknown Functional Status Question Answer Note LastModified by Organization D etails LastModified Time What is your level of alcohol consumption? None [email or web address] Information not available 10/27/2022 Mental Status None recorded. Family History Relationship Description Onset Age of this Age Resolved Age Notes LastModified by Organization Details LastModified Time Father Heart disease dec [email or web address] Not available 2022 13:49:07 Mother Malignant neoplastic disease dec-th roat [email or web address] Not available 10/27/2022 13:48:54 Brother Malignant neoplastic disease dec-co kale Not available 10/27/2022 13:48:54 Sister Malignant neoplastic disease dec-co kale Not available 10/27/2022 13:48:54 Sister Acute stroke dec [email or web address] Not avai lable 10/27/2022 13:49:24 Notes:Mother -diagno sed with cancer. 1 sibling -stroke and cancer. Grandparents -cancer Medical History Condition Response COPD Y Anxiety Disorder Y Kidney Disease Y Heart Problems Y Diabetes Y Hypertension Y Past Encounters Encounter ID Performer Location Encounter Start Date Encounter Closed Date Diagnosis/Indication Diagnosis SNOMED-CT Code Diagnosis ICD10 Code Diagnosis IMO Codes Diagnosis Note [id number] True Adams Jr, MD [facility] [address] [address] 10/27/2022 13:27:43 10/27/2022 14:12:55 Renal mass 306382359 N28.89 Patient with an 8 mm right hyperechoi c lesion consistent with a hyperdense cyst or angiomyoli jose manuel. Discussed the recent ultrasound findings with the patient. He is reassured that the lesion is very small and appears benign. I recommende d repeating an ultrasound in 1 year to assess stability. [id number] True Adams Jr, MD [facility] [address] [address] 11/02/2023 09:20:27 11/02/2023 09:57:16 Renal mass 032424275 N28.89 Patient with an 1 cm right hyperechoi c lesion consistent with a hyperdense cyst or angiomyoli jose manuel. Discussed the recent ultrasound findings with the patient. He is reassured that the lesion is very small and appears benign. 2 cm R renal cyst stable. I recommende d repeating an ultrasound in 1 year to assess stability. Screening for malignant neoplasm of prostate 525009237 Z12.5 patient has no history of previous PSAs. We will perform PSA today. Health Concerns Section Related Observation LastModified by Organization Detai ls LastModified Time None Recorded Concern Status LastModified by Organization Details LastModified Time None Recorded Advance Directives Directive None Recorded Payers Insurance Date Sequence Insurance Name Policy Number Policy Herrera Covered Member ID Herrera Member ID Guarantor Name 11/11/2024 1 [id number] [place] (MEDICA[place] HMO) Curly Anderson [id number] Curly Anderson 11/02/2023 1 [place] Curly Anderson [id number] Curly Anderson 11/11/2024 2 [facility] (MEDICARE REPLACEMENT/A DVANTAGE - HMO) [id number] Curly Anderson [id number] Curly Anderson Notes Date Note Type Note [...] left renal cyst. True Adams Jr, MD [address] [place] [address], [address], [place], [address], [facility] & [place] 11/01/2022 15:47:59 11/02/2023 text/html ROS as noted in the HPI 68-year-old white male with history of a small right [...] stable from previous. True Adams Jr, MD [address] [place] [address], [address], [place], [address], [facility] & [place] 11/02/2023 13:37:34
--- OUTSIDE RECORDS SUMMARY | 2025-01-21 06:59 | XMS_ITS | Clinical Summary ---
Author Organization [facility] Address [address] [place] [address] Care Team Providers Care Track Repair Worker Name Role Phone Sarai Centeno Primary Care Provider [phone] Bola Rodriguez MD Unavailable [phone] Allergies Active Allergy Reactions Criticality Noted Date [...] each day. 3 Active ergocalciferol 1.25 MG (00478 UT) capsule Take 1 capsule (50,000 Units) [...] day if needed for constipation. 20 capsule 3 Active Additional Information Patient not taking.Reported on [...] 12/05/2022 Renal artery stenosis 12/01/2022 CAD in [place] artery 11/30/2022 TAMMI (obstructive sleep apnea) 10/28/2022 Overview (10/28/2022): [...] kidney disease) 09/25/2020 Marijuana use 09/25/2020 10/27/2022 Chronic pain 08/21/2020 10/27/2022 COPD [...] per fast track protocol - On RA Overweight (BMI 25.0-29.9) 10/28/2022 0 12/23/2024 Anxiety 10/27/2022 11/30/2022 CVA (cerebral vascular accident) 12/27/2020 10/28/1912/05/2022 Overview (11/30/2022): - Hx of CVA Poor dentition 09/25/2020 10/27/2022 12/23/2024 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 09/04/2020 10/27/2022 10/27/2022 Acute kidney injury superimp osed on chronic kidney disease 08/21/2020 10/27/2022 10/27/2022 Malignant melanoma of skin 03/04/2016 10/27/2022 0 11/25/2022 Immunizations Immunization Administration Dates Next Due TD [...] 07/28/2023 8:51 AM EDT Plan of Treatment Health Maintenance Due Date Last Done Comments [facility]-Depression Screening 1955 [facility] Annual Wellness (AWV) 1955 [facility]-/Child/Adol SDOH Screenings 1955 Diabetes: Dental Exam 1967 [...] years 1-dose series) 2017 [facility]-Diabetes: Hemoglobin A1C 04/27/2023 10/28/2022, 12/28/2020, 09/25/2020, Additional history exists [id number] Vaccine ( season) 2024 [facility]-Influenza Vaccine (#1) 2024 [facility]-Lung Cancer Screening [...] type, unspecified whether angina present, unspecified whether [place] or transplanted heart Prediabetes HEPATITIS C ANTIBODY - ED W/REFLEX TO HCV QUANT PCR Routine 09/10/2018 5:[address] CHEST WO IV CONTRAST 11/17/2010 5:23 PM EDT from Last 3 Months or Most Recently Relevant to Health Maintenance Results * (ABNORMAL) Hemoglobin A1c (10/28/2022 11:46 AM EDT) Hemoglobin A1c 7.0(H) <5.7 % 10/28/2022 1:39 PM EDT [facility] Blood Venous blood specimen / Unknown Venipuncture / Unknown 10/28/2022 11:46 AM EDT 10/28/2022 11:46 AM EDT Narrative [facility] - 10/28/2022 1:39 PM EDT HA1C Interpretive Data: Diagnosis of Diabetes: Diabetic > or = 6.5% Pre-diabetic 5.7 to 6.4% Non-diabetic < or = 5.6% Glycemic Targets for Type I and Type II Diabetics: Non- Adults <7.0% Adults <6.0% Children and Adolescents <7.5% Source: [place] [employer]. Standards of medical care in diabetes,2017. Diabetes Care.2017:40 (suppl 1):S1-S135. HbA1c assay performed by an ion-exchange chromatography method that is certified traceable to the DCCT. us Angel Tenorio MD LAB BLOOD ORDERABLES Final R esult [facility] [address] [place] [address] * [place] Hepatitis C Antibody (09/10/2018 5:13 PM EDT) Pathologist [facility] Hepatitis C Ab NEGATIVE Reference Range: Negative [facility]QUEST 09/10/2018 5:13 PM EDT 09/10/2018 5:18 PM EDT us Ervin Alfonso MD LAB BLOOD ORDERABLES Final Result Performing Organization Address City/[facility]/ZIP Co de Phone Number SUNQUEST * CT Chest wo IV Contrast (11/17/2010 5:23 PM EDT) Anatomical Region Laterality Modality Chest Computed Tomogra phy 11/17/2010 5:23 PM EDT us External Provider IMG CT PROCEDURES Final Result from Last 3 Months or Most Recently Relevant to Health Maintenance Additional Health Concerns Infection Onset Date Last 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 Yes Care Teams Track Repair Worker Relationship Specialty Start Date End Date Sarai Centeno PA [address] [place] [address] PCP - General 10/27/22 Bola Rodriguez MD [address] [address] Referring Physician Cardiology 10/27/22
--- OUTSIDE RECORDS SUMMARY | 2025-01-21 06:59 | XMS_ITS | Encounter Summary ---
Author Organization Healthcare Address [address] [place] [address] Care Team Providers Care Road Sign Installer Name Role Phone Sarai Centeno Primary Care Provider [phone] Bola Rodriguez MD Unavailable [phone] Encounter Details Date Type Department Care Team ([facility] st Contact Info) Description 10/06/2022 Orders Only External Location [address] [place] [address] Provider, External Social History Tobacco Use Types [...] documented as of this encounter Care Teams Road Sign Installer Relationship Specialty Start Date End Date Sarai Centeno PA [address] [facility] [place] [address] PCP - General 10/27/22 Bola Rodriguez MD [address] [id number] Referring Physician Cardiology 10/27/22 documented as of this encounter
--- OUTSIDE RECORDS SUMMARY | 2025-01-21 06:59 | XMS_ITS | Encounter Summary ---
Author Organization Healthcare Address [address] [place] [address] Care Team Providers Care Outside Laborer Name Role Phone Sarai Centeno Primary Care Provider [phone] Bola Rodriguez MD Unavailable [phone] Encounter Details Date Type Department Care Team ([facility] st Contact Info) Description 10/04/2022 Orders Only External Location [address] [place] [address] Provider, External Social History Tobacco Use Types [...] documented as of this encounter Care Teams Outside Laborer Relationship Specialty Start Date End Date Sarai Centeno PA [address] [place] [address] PCP - General 10/27/22 Bola Rodriguez MD [address] [phone] Referring Physician Cardiology 10/27/22 documented as of this encounter
--- NOTE | 2025-01-21 07:30 | CT_ITS ---
FINAL REPORT CLINICAL HISTORY: lung cancer screening current smoker 1ppd x54 years COMPARISON: 06/29/2023 FINDINGS: CT CHEST LOW DOSE SCREENING HISTORY: Screening exam for lung cancer. DOSE: CTDI vol: 2.90 mGy, DLP: 102.64 mGy*cm TECHNIQUE: Axial CT without IV contrast administration using low dose protocol. This study was performed with techniques to keep radiation doses as low as reasonably achievable, (ALARA). Individualized dose reduction techniques using automated exposure control or adjustment of mA and/or kV according to the patient's size were employed. No acute lung disease is present. There is a stable 4 mm left lower lobe nodule best seen on image #207 of series 2. There is a new 5 mm right upper lobe nodule seen on image #21 of series 4. There are several other smaller right upper lobe nodules, also on the prior exam. Left upper lobe scarring is present. No pleural or pericardial effusion is seen. No adenopathy or mass lesion is present. IMPRESSION: New 5 mm right upper lobe nodule, with other smaller nodule seen on the prior exam. LUNG RADS CATEGORY 3 RECOMMENDATION: 6 month LDCT follow up Reviewed, Interpreted and Dictated by Alexandria Barnard MD Transcribed by Zoie Ivan Authenticated and [facility]
== END 2025-01-21 23:59 | disposition home or self-care (01) ==
LOC: RAD 06:57
PROVIDERS: PCP Family Medicine; Visit Provider Family Medicine
DX: Z12.2 Encounter for screening for malignant neoplasm of respiratory organs (principal); F17.210 Nicotine dependence, cigarettes, uncomplicated; R91.8 Other nonspecific abnormal finding of lung field; J98.4 Other disorders of lung
CPT/HCPCS: 71271